=== PATIENT | male | born 1955 | race Caucasian/White ===

== ENCOUNTER → 2018-07-10 | Outpatient (CLI) | payer OTHER ==
[~2018-07-10] MED LIST: ACETAMINOPHEN325 M1 PO; ADULT LOW DOSE81 MG PO; BENIFIBER PO; CALCIUM OYSTER500 MG PO; COUMADIN 5 MG TA5 M1 PO; Docusate Sodium PO; FERREX PO; FISH OIL 1,0001 EAC5 PO; FLONASE INH; GLYCOLAX POWDER17 G1 PO; HYDROCODON-ACE1 EAC7 PO; LIPITOR40 MG PO; LISINOPRIL 20 MG PO; LOPRESSOR25 PO; MULTIVITAMINS PO; UNICOMPLEX M TA1 TA1 PO; VITAMIN E400 UNIT PO; VITCB500GO PO; [UNRECOGNIZED DRUG - OTHER]; [UNRECOGNIZED DRUG - OTHER] PO
[2018-07-10 08:21] LABS: ALBUMIN 4.3 g/dL (3.4-5.0); ANION GAP 10 mmol/L (7-16); BUN 16 mg/dL (7-18); CALCIUM 8.9 mg/dL (8.5-10.1); CHLORIDE 101 mmol/L (98-107); CHOLESTEROL 188 mg/dL (<200); CO2 27 mmol/L (21-32); GLUCOSE 134 mg/dL (74-106); HDL CHOLESTEROL 46 mg/dL (>40); LDL CHOLESTEROL 103 mg/dL (<100); POTASSIUM 4.3 mmol/L (3.5-5.1); SGOT 26 U/L (15-37); SGPT 45 U/L (30-65); SODIUM 138 mmol/L (136-145); TC:HDL 4.1 Ratio (Not establshd); TOTAL BILIRUBIN 0.6 mg/dL (<0.1-1.0); TOTAL PROTEIN 7.5 g/dL (6.4-8.2); TRIGLYCERIDE 196 mg/dL (<150); VLDL 39 mg/dL (<40)
[2018-07-10 11:07] LABS: PSA 0.7 ng/mL (0.0-4.0)
[2018-07-10 23:06] LABS: GLYCOHEMOGLOBIN (HGB A1C) 6.3 % (4.8-5.6)
== END ==
LOC: NUC 07:13 → MRI 15:36 → NUC 15:39
DX: M19.071 Primary osteoarthritis, right ankle and foot (principal); M62.571 Muscle wasting and atrophy, not elsewhere classified, right ankle and foot; I10 Essential (primary) hypertension; L03.115 Cellulitis of right lower limb; M65.871 Other synovitis and tenosynovitis, right ankle and foot; M25.774 Osteophyte, right foot; L97.519 Non-pressure chronic ulcer of other part of right foot with unspecified severity; R60.0 Localized edema; R03.0 Elevated blood-pressure reading, without diagnosis of hypertension; E78.5 Hyperlipidemia, unspecified; E66.09 Other obesity due to excess calories; I73.9 Peripheral vascular disease, unspecified; Z95.2 Presence of prosthetic heart valve; Z82.49 Family history of ischemic heart disease and other diseases of the circulatory system; Z68.33 Body mass index [BMI] 33.0-33.9, adult

== ENCOUNTER 2019-08-30 11:36 | Inpatient (IN) | payer OTHER ==
[~2019-08-30] VITALS: Ht 182.9 cm; Wt 113.4 kg
--- NOTE | ~2019-08-30 | HC ---
[facility] [place] [address] CONSULTATION Name: LETITIA FERRO Room #: 404-P [facility] IN M.R.#: [id number] Admission: 08/30/19 Attend Phys: Navneet Mascorro MD Discharge: Date of : 55 Report #: [id number] THIS REPORT FOR: cc: Pee Alexandre MD, Kirk D. MD [facility] MD ~ CC: Pee Mascorro DATE OF SERVICE: 08/31/2019 INFECTIOUS DISEASE CONSULTATION ATTENDING PHYSICIAN: Navneet Mascorro MD REASON FOR CONSULTATION: Nonhealing right diabetic foot ulcer, infected right fourth toe. HISTORY OF PRESENT ILLNESS: A 64-year-old white man, patient of Dr. Pee Alexandre is admitted through the Emergency Room with a history of bleeding and infection, right fourth toe secondary to self-induced injury with toenail trimming and applying of ____ type substance. The patient was previously evaluated by Dr. Arya Bowie with a chronic nonhealing ulcer on the plantar surface of the medial right mid foot area. He was advised by a stove fitter that the problem can be fixed with surgery, which I doubt very much that Charcot joints are cure or held by any type of surgery. I discussed nonweightbearing issues. PAST MEDICAL HISTORY: Bicuspid aortic valve, status post mechanical aortic valve replacement, on anticoagulation with warfarin, being followed by Dr. Vazquez. Peripheral neuropathy. Diet-controlled diabetes mellitus. Tonsillectomy. Bilateral cataract surgery. DRUG ALLERGIES: None listed. MEDICATIONS: The patient on treatment with single dose of vancomycin and subsequently vancomycin 1 gram IV daily as well as cefepime a gram IV 2 times daily. I discontinued both medications. We put the patient on Zosyn 3.375 grams IV every 8 hours and Zyvox 600 mg p.o. b.i.d. The patient also on treatment with olmesartan medoxomil, amlodipine besylate, multivitamin with iron, aspirin 81 mg, atorvastatin, warfarin, insulin lispro per sliding scale, p.r.n. acetaminophen, p.r.n. glucose, p.r.n. glucagon. The patient has received some heparin bolus as well. SOCIAL HISTORY: See H and P, old records. [address] [address] CONSULTATION Name: LETITIA FERRO Room #: 404-P [facility] IN M.R.#: [id number] Admission: 08/30/19 Attend Phys: Navneet Mascorro MD Discharge: Date of : 55 Report #: [id number] FAMILY HISTORY: See H and P, old records. REVIEW OF SYSTEMS: Not much feeling in lower extremities. Chronic ulceration, medial aspect mid right foot plantar surface from Charcot joint. PHYSICAL EXAMINATION: GENERAL: Well developed, not toxic looking man, in no distress, afebrile. VITAL SIGNS: Temperature 98.6, pulse 58, respirations 18, BP 159/60, height 6 feet, weight 250 pounds. HEENT: Status post cataract surgery. MOUTH: Good oral hygiene, dentition. NECK: Supple. No thyromegaly. LUNGS: Clear to auscultation. HEART: Morrow prosthetic valvular sounds. Heart is S1, S2. No gallop. ABDOMEN: Obese, soft. No masses or megaly. EXTREMITIES: Reveal decreased sensation in legs. Right foot with typical changes of Charcot joints and a chronic discolored area on the medial aspect of the plantar surface of the right foot as well as bleeding from the right fourth toes and recent history of trauma with toenail trimming. LABORATORY DATA: Sodium 140, potassium 4.2, BUN 13, creatinine 1.1, glucose on admission 149, subsequently 140. Liver enzymes normal. Protime 16.7 seconds, INR 1.6. WBC on admission 14,400, repeated 8800, hemoglobin 12.2 g/dL, platelets 252,000. ESR 56 mm per hour. Vancomycin trough pending. Obviously, we will stop and discontinue that. MICROBIOLOGY DATA: Blood cultures negative. RADIOLOGY EVALUATION: An MRI of the foot in the year 2019, no evidence of osteomyelitis, abscess, cellulitis, medial aspect of the right mid foot. Hindfoot and mid foot arthrosis and atrophy of intrinsic musculature compatible with so called peripheral neuropathy. X-ray of the foot revealed no bone destruction that is obvious to us. MRI recommended. Arterial ultrasound, circulation in lower extremities reveal triphasic inflow waveform, preserved down through popliteal arteries below knee level, technically monophasic waveforms suggesting no significant distal right leg stenosis. There is significant blunted peroneal waveform indicating possibly peripheral vascular disease. ASSESSMENT: 1. Chronic right foot ulceration, plantar medial aspect of right foot and evidence of Charcot joint and recent trimming toenail trauma of right fourth toe with evidence of bleeding. 2. Diabetes mellitus, diet controlled. 3. Aortic root valve replacement with a mechanical valve, on anticoagulation with warfarin. [facility] [address] [place] [address] CONSULTATION Name: LETITIA FERRO Room #: 404-P ADM IN M.R.#: [id number] Admission: 08/30/19 Attend Phys: Navneet Mascorro MD Discharge: Date of : 55 Report #: [id number] SUGGESTIONS: For time being, I would recommend medical treatment with combination of Zyvox 600 mg p.o. b.i.d. and Zosyn 3.375 grams IV every 8 hours. MRI may tell us for sure whether we are dealing with osteomyelitis of the right fourth toe, which I doubt. I discussed issue of nonweightbearing and Charcot's joints. Dr. Mascorro, thank you for requesting my suggestions. By: [id number] Leonard Esteban MD /nt
[2019-08-30 11:37] VITALS: BP 131/49
[2019-08-30 12:39] LABS: BASOPHILS 0.5 % (0.0-2.0); EOSINOPHILS 0.4 % (0.0-3.0); HEMATOCRIT 39.3 % (42.0-52.0); HEMOGLOBIN 13.4 gm/dL (14.0-18.0); LYMPHOCYTES 9.1 % (24.0-44.0); MCH 30.6 pg (26.0-34.0); MCHC 34.2 g/dL (28.0-37.0); MCV 89.4 fL (80.0-100.0); MONOCYTES 6.4 % (1.0-8.0); PLATELET COUNT 271 thou/uL (150-400); POLYS 83.6 % (36.0-66.0); RDW 13.4 % (10.5-14.5); WBC 14.4 thou/uL (4.0-11.0)
[2019-08-30 12:41] LABS: CALCIUM 9.1 mg/dL (8.5-10.1); CREATININE 1.1 mg/dL (0.7-1.3)
[2019-08-30 12:45] LABS: APTT 44.4 Seconds (24.5-32.8); INR 1.7; PROTIME 17.4 Seconds (9.3-11.4)
[2019-08-30 12:47] LABS: ALBUMIN 3.9 g/dL (3.4-5.0); DIRECT BILIRUBIN 0.1 mg/dL (<0.1-0.2); TOTAL BILIRUBIN 0.8 mg/dL (<0.1-1.0); TOTAL PROTEIN 7.9 g/dL (6.4-8.2)
[2019-08-30 13:48] VITALS: BP 147/61
--- NOTE | 2019-08-30 13:49 | NUR ---
SENT HANDOFF REPORT AT THIS TIME
[2019-08-30] MEDS ORDERED: AMLODIPINE BESY10 MG PO (14:56)
[2019-08-30] MEDS ORDERED: IRBESARTAN300 MG PO (14:56)
[2019-08-30 15:24] VITALS: BP 157/71
--- NOTE | 2019-08-30 15:57 | NUR ---
PT ADMITTED RELATED TO RT FOOT CELLULITIS. CM REVIEWED CHART AND SPOKE WITH CARE TEAM. CM MET WITH PT AT BEDSIDE THIS DAY. PT IS A&O X4. CM ROLE INTRODUCED. PT INDICATED HE HAS AN APARTMENT OVER HIS SHOP IN [place] WHERE HE HAS BEEN STAYING. HE INIDCATED THEY HAVE A HOUSE AT [facility] WHERE HIS IS WITH THEIR DOGS. 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 PT INDICATED NO HH OR OP THERAPY HX. PT INDICATED HE HAD BEEN FOLLOWED BY OP WC IN [place] BUT HE ISN'T PLEASED WITH THEM AND WANTS TO FOLLOW UP WITH [facility] [place]ON [place]. PT INDICATED HE PLANS TO RETURN TO HIS APARTMENT [place]ON [place]. CM TO FOLLOW INDICATED WITH DC PLANNING.
--- NOTE | 2019-08-30 16:37 | NUR ---
PT ARRIVED ON THE UNIT FROM ER. PT IS AOX4, VSS, NO C/O PAIN AT THIS TIME. PT TRANSFERRED TO BED FROM WHEELCHAIR. PT RIGHT FOOT 4TH TOE HAS EDEMA/SWELLING. 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 PT HAS NEUROPATHY AND DENIES HAVING PAIN IN THE RIGHT FOOT. PT FOOT IS CURRENTLY ELEVATED ON PILLOW. IV IN LEFT AC IS PATENT WITH IV ANTIBIOTIC THERAPY. PT BS 104. CALL LIGHT/PERSONAL ITEMS IN REACH. WILL CONTINUE TO MONITOR.
[2019-08-30 19:23] VITALS: BP 134/55
--- NOTE | 2019-08-31 04:03 | NUR ---
PATIENT ALERT AND ORIENTED X4. UP ADLIB IN ROOM. STUBBED TOE AND BLISTER BROKEN WITH BLEEDING. DRESSING PLACED. BLOOD SUGAR MONITORED PER ORDER. ABX INFUSED W/O COMPLICATION. THIS NURSE CALLED RT REGARDING CPAP FOR PATIENT AT NIGHT HE SLEEPS WITH ONE AT HOME. RT STATED THAT HE WOULD NEED TO HAVE SOMEONE BRING HIS FROM HOME WE DO NOT SUPPLY THEM ANYMORE. PATIENT SLEPT OFF AND ON DURING THE NIGHT. WOUND CARE HAS NOT YET SEEN PATIENT, CONSULT IS IN. WILL MONITOR.
[2019-08-31 05:59] LABS: ABSOLUTE NEUTROPHILS 5.9 thou/uL (1.4-8.2); BASOPHILS 0.7 % (0.0-2.0); EOSINOPHILS 2.6 % (0.0-3.0); HEMATOCRIT 35.7 % (42.0-52.0); HEMOGLOBIN 12.2 gm/dL (14.0-18.0); LYMPHOCYTES 22.1 % (24.0-44.0); MCH 30.8 pg (26.0-34.0); MCHC 34.3 g/dL (28.0-37.0); MCV 89.8 fL (80.0-100.0); MONOCYTES 7.9 % (1.0-8.0); PLATELET COUNT 252 thou/uL (150-400); POLYS 66.7 % (36.0-66.0); RBC 3.97 mil/uL (4.50-6.00); RDW 13.3 % (10.5-14.5); WBC 8.8 thou/uL (4.0-11.0)
[2019-08-31 06:00] LABS: INR 1.6; PROTIME 16.7 Seconds (9.3-11.4)
[2019-08-31 06:10] LABS: CALCIUM 8.1 mg/dL (8.5-10.1); CREATININE 1.1 mg/dL (0.7-1.3); MAGNESIUM 2.3 mg/dL (1.8-2.4); POTASSIUM 4.2 mmol/L (3.5-5.1)
[2019-08-31 09:30] VITALS: BP 159/60
--- NOTE | 2019-08-31 10:16 | NUR ---
Nutrition: Assessed due to admit reason of R foot cellulitis, w/ mention of R 4th toe wound. PMH: chronic diastolic heart failure, charcot foot, and diet controlled prediabetes per EMR. Pt on a carb controlled, heart healthy diet. Eating very well with no nutrition concerns. Pt obese w/ BMI 33.9 kg/m2 but has been "dieting" for the last 6 weeks and states he is down nearly 20#. Weighs self daily. Recent wt of 269#, now CBW is 250# for a healthy 19# wt Reports recently weighing 269#, now CBW is 250# for a 19# healthy or 7% wt change in < 2 mo. Working on drastically reducing portions, snacking frequently between meals on apples, PB3 snacks w/ nuts. Avoids unnecessary carbs and not eating many breads, pasta, etc. Encouraged ongoing emphasis on colorful fruits and vegetables for vitamin/mineral content and lean protein to support wound. A1c 6.3% 1 yr ago (06/2018) w/ a.m. BG 104 mg/dl. Explained increases in BG could occur related to infection present. Pt has SSI if needed plus on MVI w/ iron. Spent 10-15 mins in diet/wt loss education. Low risk.
--- NOTE | 2019-08-31 16:37 | NUR ---
PT HAD INDICATED THAT HE HOPES TO HAVE FOLLOW UP WOUND CARES THROUGH THE WOUND CLINIC HERE AT THE HOSPITAL. PT HAS ALL RECOMMENDED DME FOR HOME USE. CM TO FOLLOW SHOULD ANY DC NEEDS ARISE.
[2019-08-31 16:43] VITALS: BP 120/59
--- NOTE | 2019-08-31 19:02 | NUR ---
ASSUMED CARE OF PT AT 0700. PT IS AOX4, VSS, NO C/O PAIN. PT HAS NEUROPATHY IN BLE. PT RECEIVED ANTIBIOTIC THERAPY PER IV, RT FOOT ELEVATED. WOUND CARE NURSE PLACE DRESSING ON RIGHT FOOT. DRESSING IS CDI. MRI OF FOOT WAS COMPLETED. PT REFUSED S/S INSULIN IF BS IS ELEVATED. PT REPORTS HE DOESN'T TAKE INSULIN AT HOME. PT CALLS APPROPRIATELY, CALL LIGHT/PERSONAL ITEMS ARE IN REACH. WILL CONTINUE TO MONITOR.
[2019-08-31 19:37] VITALS: BP 130/79
--- NOTE | 2019-09-01 04:21 | NUR ---
PATIENT ALERT AND ORIENTED X4. UP ADLIB IN ROOM. DENIES PAIN. BS MONITORED PER ORDER. IV ABX INFUSED W/O COMPLICATION. FAMILY DELIVERED PATIENTS CPAP FROM HOME AND HE STATED THAT HE WOULD NOT WEAR IT TONIGHT BUT HE WILL TOMORROW NIGHT (09/01/2019). RT HAS PATIENT ON A CONTINUOUS PULSE OX TONIGHT. RESTING QUIETLY. WILL MONITOR.
--- NOTE | 2019-09-01 06:40 | NUR ---
THIS NURSE UNWRAPPED PATIENTS RIGHT FOOT DRESSING FOR DR. ROSS (INFECTIOUS DISEASE) TO OBSERVE. REWRAPPED WITH SHARON. PATIENT TOLERATED WELL.
[2019-09-01 08:21] VITALS: BP 145/70
[2019-09-01 19:15] VITALS: BP 134/49
--- NOTE | 2019-09-01 19:19 | NUR ---
ASSUMED CARE OF PATIENT AT 0715, PATIENT ALERT AND ORIENTED X 4. UP AD RICKEY IN ROOM. PATIENT DENIES PAIN THIS AM. C/O HEADACHE, TYLENOL 650 MG 2 TABLETS GIVEN FOR HEADACHE. PATIENT HAS LEFT AC IV IN PLACE, RECEIVED IV ANTIBIOTIC THIS SHIFT. BLOOD SUGAR MONITORING ORDERED, LAST BS 101. WOUND CARE DONE RIGHT FOOT, TOLERATED W/O DIFFICULTY. WILL CONTINUE TO MONITOR.
[2019-09-02 02:57] LABS: HEMATOCRIT 36.8 % (42.0-52.0); HEMOGLOBIN 12.7 gm/dL (14.0-18.0); MCH 30.5 pg (26.0-34.0); MCHC 34.5 g/dL (28.0-37.0); MCV 88.4 fL (80.0-100.0); RBC 4.16 mil/uL (4.50-6.00); RDW 13.4 % (10.5-14.5); WBC 8.9 thou/uL (4.0-11.0)
[2019-09-02 04:47] VITALS: BP 130/60
--- NOTE | 2019-09-02 07:14 | NUR ---
PATIENT ALERT AND ORIEDNTED X 4. UP ADLIB IN ROOM. COOPERATIVE WITH CARE. BS MONITORED PER ORDER. C/O HEADACHE THIS AM AND WAS GIVEN TYLENOL WITH GOOD RESULTS. DR. ROSS IN TO SEE THIS AM AND PATIENT C/O LOOSE STOOLS WHICH ARE RELATED TO HIS ABX. DRESSING TO RIGHT FOOT DRY AND INTACT. UP AND DOWN DURING THE NIGHT. RESTING AT TIME OF NOTE. WILL MONITOR.
[2019-09-02 07:30] VITALS: BP 141/52
[2019-09-02 17:26] VITALS: BP 136/59
[2019-09-02 19:33] VITALS: BP 140/66
--- NOTE | 2019-09-02 20:02 | NUR ---
ASSUMED CARE OF PATIENT AT 0715, PATIENT ALERT AND ORIENTED X 4, UP AD RICKEY. C/O NAUSEA THIS SHIFT, BUT FELT OK AFTER SAMLL OF EMESIS. STILL C/O LOOSE STOOLS, THIS RN NOTIFIED DR STRONG. NEW ORDERS RECEIVED FOR IMMODIUM, PROBIOTIC, AND NEW ORDER FOR TRAMDAOL 1-2 TABLETS/PRN. C/O HEADACHE THIS SHIFT X 2, THIS AM TYLENOL 2 TABLETS GIVEN, WITH RELIEF AND THIS AFTERNOON TRAMADOL 2 TABLETS GIVEN, WITH GOOD RELIEF. PAIENT C/O SLIGHT NAUSEA AT DINNER TIME, BUT STATES HE HAD SMALL AMOUNT OF EMESIS AND ELT BETTER. LEFT IV IN PLACE, RECEIVED 1 IV ANTIBIOTIC THIS SHIFT. WILL CONTINUE TO MONITOR.
[2019-09-03 04:43] VITALS: BP 117/51
--- NOTE | 2019-09-03 05:10 | NUR ---
PATIENT ALERT AND ORIENTED X4. UP ADLIB IN ROOM. NAUSEA AND VOMITING ON THIS SHIFT. NAUSEA DURING THE DAY. NEW ORDER RECEIVED FROM MARVIN ZALDIVAR FOR ZOFRAN IVP WHICH HELPED, NO FURTHER EMESIS AT THIS TIME. ABLE TO SLEEP AFTER ZOFRAN. BS MONITORED PER ORDER. THIS NURSE GAVE WOUND CARE TO RIGHT FOOT PER ORDER AND PATIENT TOLERATED WELL. WEARING CPAP DURING THE NIGHT. DENIES PAIN. RESTING QUIETLY. WILL MONITOR.
--- NOTE | 2019-09-03 15:46 | NUR ---
CARE TEAM INDICATED THAT PT IS PROGRESSING WELL TOWARD GOAL OF DISHCARGE. PT AND OT SAW PT AND INDICATED THAT PT WOULD BE SAFE TO DC HOME ONCE MEDICALLY STABLE. AWAITING IV RECS AND WOUND CARE. CM TO FOLLOW INDICATED WITH DC PLANNING.
--- NOTE | 2019-09-03 15:51 | HC ---
[facility] [place] [address] CONSULTATION Name: KASIELETITIA ALEJANDRO Jade Room #: 404-P ADM IN M.R.#: [id number] Admission: 08/30/19 Attend Phys: Navnete Mascorro MD Discharge: Date of : 55 Report #: [id number] THIS REPORT FOR: cc: Pee Alexandre MD, Kirk D. MD Althoff, Jeffrey R. MD ~ CC: Pee Mascorro DATE OF SERVICE: 08/31/2019 CHIEF COMPLAINT: Ulcerations to the right mid foot and right fourth toe. HISTORY OF PRESENT ILLNESS: This is a 64-year-old male patient with a history of diabetes mellitus and a long history of Charcot deformity of the right foot. He was admitted to the hospital with increasing tenderness, swelling and redness to the right foot. He noted about 2-3 weeks ago was clipping his toenails and accidentally opened up an area on his right fourth toe. It has become increasingly swollen with drainage. He has been followed at [facility], but has been considering seeking additional wound care at another facility. He has been admitted to the hospital for further evaluation and treatment. I have been asked to see her with regard to wound care. He denies any significant pain at this time. He does have Charcot type deformity in his history as well as chronic ulceration on the plantar aspect of the right foot. PAST MEDICAL HISTORY: Specifically is significant for severe aortic stenosis, status post aortic valve replacement, hypertension, hyperlipidemia, diet-controlled prediabetes, morbid obesity, hypertension. MEDICATIONS: Docusate sodium, Ferrex, lisinopril, metoprolol, Coumadin, atorvastatin, aspirin, Flonase. SOCIAL HISTORY: Negative for alcohol or tobacco use. ALLERGIES: None. FAMILY HISTORY: Noncontributory. REVIEW OF SYSTEMS: CONSTITUTIONAL: The patient denies fever, chills, or weight loss. NEUROLOGICAL: The patient denies focal weakness, numbness or tingling. EYES: The patient denies visual changes, redness, or drainage. ENT: The patient denies earache, nasal drainage or sore throat. CARDIOVASCULAR: The patient denies chest pain, palpitations or diaphoresis. PULMONARY: The patient denies cough or shortness of breath. GASTROINTESTINAL: The patient denies nausea, vomiting, diarrhea, or abdominal [address] [address] CONSULTATION Name: KASIELETITIA Room #: 404-P [facility] IN .R.#: [id number] Admission: 08/30/19 Attend Phys: Navneet Mascorro MD Discharge: Date of : 55 Report #: [id number] pain. ORTHOPEDIC: The patient complains of pain, swelling, drainage and persistent ulceration involving the plantar right foot as well as more recently the right fourth toe. Other systems in a 14-point review of systems are negative. PHYSICAL EXAMINATION: VITAL SIGNS: At this time include temperature 37.0, pulse 58, respiratory rate 18, blood pressure 159/60. GENERAL: This is a well-developed, well-nourished male patient who appears to be in minimal distress. HEENT: Head normocephalic male. Nose and throat are clear. NECK: Supple. ABDOMEN: Soft. Bowel sounds present. EXTREMITIES: Examination of the lower extremities demonstrates palpable distal pulses. He has what appears to be a deformity to the plantar aspect of the right mid foot, likely with early Charcot type changes with significant ulceration and significant periwound callous. There is loose skin on the right fourth toe, which is also swollen. I am able to probe the bone at the distal phalanx. The patient has minimal light touch sensation throughout his foot. NEUROLOGIC: The patient is alert and oriented and appropriate other than the light touch sensation decrement. LABORATORY DATA: White blood cell count 14.4 with hemoglobin 13.4. Sodium 140, potassium 4.2, chloride 105, CO2 of 28, BUN 13, creatinine 1.1, glucose is 104. Albumin is 3.9. Cultures have been obtained from the foot and are pending. Arterial Dopplers demonstrate no significant abnormality on the right side. X-ray evaluation of the right foot shows no definite bone destruction or obvious osteomyelitis. CLINICAL IMPRESSION: 1. Diabetic ulceration to the right fourth toe with possible underlying osteomyelitis based on clinical exam. 2. Charcot type deformity of the right foot with plantar ulceration, chronic. 3. Prediabetes versus diabetes. 4. Peripheral neuropathy likely secondary to diabetes mellitus. RECOMMENDATIONS: At this point in time, the patient will be started on empiric antibiotic therapy. We will recommend silver alginate and then gauze dressings to the fourth toe as well as the plantar aspect of the foot. We will obtain an MRI. It may be worthwhile for him to see a Charcot surgeon at some point in time. We will continue with local care. We will also recommend offloading while here. Additional decision making be forthcoming upon review of additional laboratory studies and diagnostic imaging. [address] [address] CONSULTATION Name: LETITIA FERRO Room #: 404-P ADM IN M.R.#: [id number] Admission: 08/30/19 Attend Phys: Navneet Mascorro MD Discharge: Date of : 55 Report #: [id number] I appreciate being asked to see the patient in consultation. <ELECTRONICALLY SIGNED> By: James Nj MD 09/03/19 1551 [id number] James Nj MD /nt
--- NOTE | 2019-09-03 18:43 | NUR ---
PT IS AOX4, UP AD RICKEY, VSS. PT IS TOLERATING DIET WELL, NO N/V. PT REFUSED 3 UNITS OF INSULIN S/S. PT REPORTS HE DOESN'T TAKE INSULIN AT HOME. DRESSING ON RIGHT FOOT WAS CHANGED AND REMAINS CDI. IV IN LEFT AC IS PATENT, ANTIBIOTIC THERAPY RECEIVED. CALL LIGHT IN REACH WILL CONTINUE TO MONITOR.
[2019-09-03 19:37] VITALS: BP 165/67
[2019-09-03 22:00] VITALS: BP 135/62
--- NOTE | 2019-09-04 05:32 | NUR ---
Assumed pt care at 1900. A/OX4. Up ad magalys w/o problems. Pt's BP elevated at HS 165/67 rechecked and 135/62 no intervention needed. Pt c/o pain to right foot, medicated per EMAR with relief reported. Pt encouraged to elevate extremities d/t swelling and did verbalize understanding. Dressing C/D/I to right foot. Pt resting quietly at this time w/o any distress noted,CPAP on will continue to monitor pt. Call light/personal items within reach.
[2019-09-04 07:30] VITALS: BP 127/51
--- NOTE | 2019-09-04 11:24 | NUR ---
PT IS AOX4, VSS, NO C/O PAIN. PT IS UP TO RECLINER, NO C/O PAIN. DRESSING CHANGED ON RIGHT LOWER EXTREMITY, PT IS TOLERATING DIET WELL. CALL LIGHT IN REACH, IV IN LEFT AC IS PATIENT AND USED FOR ANTIBIOTIC THERAPY. WILL CONTINUE TO MONITOR.
[2019-09-04 19:29] VITALS: BP 143/55
--- NOTE | 2019-09-05 05:15 | NUR ---
Assumed pt care at 1900. Pt is A/OX4, VSS. Up ad magalys w/o problems. Denied pain on assessment. Dressing in place on right foot. Pt encouraged to call for help as needed and doing so. Will continue to monitor pt.
[2019-09-05 06:02] LABS: HEMATOCRIT 38.7 % (42.0-52.0); HEMOGLOBIN 13.2 gm/dL (14.0-18.0); MCH 30.4 pg (26.0-34.0); MCV 89.4 fL (80.0-100.0); RBC 4.33 mil/uL (4.50-6.00); RDW 13.7 % (10.5-14.5); WBC 8.9 thou/uL (4.0-11.0)
[2019-09-05 06:08] LABS: INR 1.3; PROTIME 13.2 Seconds (9.3-11.4)
[2019-09-05 10:00] VITALS: BP 142/59
--- NOTE | 2019-09-05 15:58 | NUR ---
RECEIVED FINAL ORAL ABX RECS FROM ID AND WOUND CARE ORDERS. AWAITING TO SEE IF CARE TEAM WILL RECOMMEND OP FOLLOW UP AT WOUND CLINIC OR HH SERVICES. ANTICIPATE DC HOME TOMORROW. CM TO FOLLOW INDICATED WITH DC PLANNING.
--- NOTE | 2019-09-05 16:08 | NUR ---
ASSUMED PATIENT CARE AT 0700. PATIENT IS AOX4, DENIES PAIN, UP AD RICKEY. THE PLAN IS FOR THE PATIENT TO DISCHARGE TOMORROW AFTER HIS 7 DAYS OF ANTIBIOTIC, PATIENT UNDERSTANDS. PATIENT WAS UP TO SHOWER ON HIS OWN AND WOUND CARE WAS COMPLETED AFTER SHOWER. PATIENT STATES THAT HIS STOOL IS FINALLY FORMED AND NO ABDOMINAL PAIN. PATIENT WILL CALL FOR HELP NEEDED BUT GETS AROUND GREAT ON HIS OWN.
[2019-09-05 17:10] VITALS: BP 154/55
[2019-09-05 19:41] VITALS: BP 142/63
--- NOTE | 2019-09-06 04:30 | NUR ---
Assumed pt care at 1900. Pt's A/OX4. VSS.Up ad magalys w/o problems voiced. Denies pain on assessment. Drsg C/D/I on right foot. IV patent on LAC getting abt's w/o difficulties. Pt encouraged to call for help as needed. Resting w/o distress noted, CPAP in place,will continue to monitor pt.
[2019-09-06 07:17] VITALS: BP 154/62
[2019-09-06 13:37] LABS: EOSINOPHILS 2.4 % (0.0-3.0); HEMATOCRIT 39.5 % (42.0-52.0); HEMOGLOBIN 13.7 gm/dL (14.0-18.0); MCH 30.9 pg (26.0-34.0); MCHC 34.7 g/dL (28.0-37.0); MONOCYTES 7.8 % (1.0-8.0); PLATELET COUNT 334 thou/uL (150-400); POLYS 69.8 % (36.0-66.0); RBC 4.44 mil/uL (4.50-6.00); RDW 13.4 % (10.5-14.5); WBC 8.7 thou/uL (4.0-11.0)
[2019-09-06 13:53] LABS: INR 1.4; PROTIME 14.2 Seconds (9.3-11.4)
[2019-09-06 14:02] LABS: ALBUMIN 3.7 g/dL (3.4-5.0); CALCIUM 9.2 mg/dL (8.5-10.1); MAGNESIUM 2.3 mg/dL (1.8-2.4); POTASSIUM 4.1 mmol/L (3.5-5.1); TOTAL BILIRUBIN 0.3 mg/dL (<0.1-1.0); TOTAL PROTEIN 7.2 g/dL (6.4-8.2)
[2019-09-06 14:48] VITALS: BP 137/65
[2019-09-06] MEDS ORDERED: ENOXAPARIN120 MG/0.1 SUBQ (14:57)
[2019-09-06] MEDS ORDERED: KEFLEX500 M1 PO (15:00)
--- NOTE | 2019-09-06 15:25 | NUR ---
CARE TEAM INDICATED THAT PT IS MEDICALLY STABLE TO DISCHARGE HOME THIS DAY. PT HAD ALL RECOMMENDED DME. PT TO DO OP FOLLOW UP WITH DR. HUGHES TOMORRO AND TUESDAY TO HAVE INR CHECKED, FOLLOW UP IN OP WOUND CLINIC, AND COLLOW UP WITH DR. GUERRA IN 1 WEEK FOR ID. NO OTHER CM INTERVENTION INDICATED. CASE CLOSED.
--- NOTE | 2019-09-06 18:20 | NUR ---
ASSUMED CARE OF PATIENT AT 0715, PATIENT ALERT AND ORIENTED X 4. UP AD RICKEY. PATIENT DENIES PAIN THIS SHIFT. PATIENT HAS RIGHT FOOT WOUND, DRESSING CHANGED THIS SHIFT. DR CHAKRABORTY HERE TODAY TO SEE THE PATIENT, LATE DISCHARGE ORDER I COMPUTER FOR HOME WITH SELFCARE. THIS RN INSTRUCTED THE PATIENT HOW TO INJECT LOVENOX, PATIENT VERBALIZE UNDERSTANDING. THIS RN WENT OVER ALL DISCHARGE PAPERWORK AND ALL PERSONAL BELONGINGS SENT WITH THE PATIENT. LEFT AC IV IN PLACE, RECEIVED 1 IV ANTIBIOTIC THIS SHIFT. DR GUERRA SAW THE PATIENT, DISCHARGE WITH KELFEX PO ANTIBIOTIC AND F/U VISIT 2 WEEKS.
== END 2019-09-06 17:30 | disposition home or self-care (01) | DRG 603 ==
LOC: ER 11:36 → 4N 13:26 → EROBS 13:26 → 4N 15:16 → ENTRNSPT 09-06 17:25 → 4N 09-06 17:30
PROVIDERS: Internal Medicine; Nurse Practitioner; ADMIT Internal Medicine
DX: L03.115 Cellulitis of right lower limb (principal); A52.16 Charcot's arthropathy (tabetic); I50.32 Chronic diastolic (congestive) heart failure; E11.621 Type 2 diabetes mellitus with foot ulcer; E78.5 Hyperlipidemia, unspecified; E11.622 Type 2 diabetes mellitus with other skin ulcer; E11.42 Type 2 diabetes mellitus with diabetic polyneuropathy; L97.519 Non-pressure chronic ulcer of other part of right foot with unspecified severity; I11.0 Hypertensive heart disease with heart failure; K42.9 Umbilical hernia without obstruction or gangrene; G47.33 Obstructive sleep apnea (adult) (pediatric); I35.0 Nonrheumatic aortic (valve) stenosis; Z82.49 Family history of ischemic heart disease and other diseases of the circulatory system; Z95.2 Presence of prosthetic heart valve; E66.01 Morbid (severe) obesity due to excess calories; Z68.33 Body mass index [BMI] 33.0-33.9, adult; Z98.42 Cataract extraction status, left eye; Z98.41 Cataract extraction status, right eye; Z79.01 Long term (current) use of anticoagulants
CPT/HCPCS: 10091

== ENCOUNTER → 2019-09-26 | Outpatient (CLI) | payer OTHER ==
[~2019-09-26] MED LIST changes: +AMLODIPINE BESY10 MG PO; +ENOXAPARIN120 MG/0.1 SUBQ; +IRBESARTAN300 MG PO; +KEFLEX500 M1 PO
== END ==
LOC: RAD 14:31
DX: L97.512 Non-pressure chronic ulcer of other part of right foot with fat layer exposed (principal)

== ENCOUNTER 2019-11-09 08:15 | Inpatient (IN) | payer OTHER ==
[~2019-11-09] VITALS: Ht 182.9 cm; Wt 113.4 kg
[~2019-11-09 08:15] MED LIST changes: +DOXYCYCLINE 10100 MG PO; +GLUCOSAMINE1000 MG PO; +SUPER THERAVIT1 EACH PO
[2019-11-09 09:01] VITALS: BP 151/54
[2019-11-09 09:15] LABS: INR 1.2; PROTIME 12.8 Seconds (9.3-11.4)
[2019-11-09] MEDS ORDERED: PERCOCET 7.5-31 EAC1 PO (11:14)
[2019-11-09 11:30] VITALS: BP 151/54
--- NOTE | 2019-11-10 09:13 | O ---
[facility] [place] [address] OPERATIVE REPORT Name: LETITIA FERRO Jade Room #: 150-3 [facility] IN .R.#: [id number] Admission: 11/09/19 Attend Phys: Shaggy Adames MD Discharge: 11/09/19 Date of : 55 Report #: [id number] THIS REPORT FOR: cc: Pee Alexandre MD, Kirk D. MD Kneidel, Matthew T. MD ~ CC: Pee Adames DATE OF SERVICE: 11/09/2019 PREOPERATIVE DIAGNOSIS: Right fourth toe osteomyelitis. POSTOPERATIVE DIAGNOSIS: Right fourth toe osteomyelitis. PROCEDURE: Right fourth toe amputation. SURGEON: Shaggy Adames MD SALES COUNSELOR: Zoie Baptiste. ANESTHESIA: General. ESTIMATED BLOOD LOSS: 1 mL. DRAINS: None. COMPLICATIONS: None. DESCRIPTION OF PROCEDURE: The patient was brought to the operating room where he was placed under general anesthesia. Once under adequate general anesthesia, his right lower extremity was prepped and draped in a sterile manner. The extremity was elevated and tourniquet placed to 250 mmHg. A fishmouth type incision was made over the middle phalanx of the fourth toe. Sharp dissection was carried to the bone. The toe was then released through its proximal interphalangeal joint via the collateral ligaments with a 15 blade and then subsequently completely removed. Once removed, the wound was irrigated copiously and closed with 3-0 nylon for the skin. The toe was then dressed with Xeroform, 4 x 4s, and sterile soft compressive dressing was placed. Tourniquet was let down at 10 minutes. Toes were pink and warm with good capillary refill. There were no complications from the procedure. The patient tolerated the procedure well and went to recovery room without incident. <ELECTRONICALLY SIGNED> By: Shaggy Adames MD 11/10/19 0913 [id number] Shaggy Adames MD /nt
== END 2019-11-09 12:25 | disposition home or self-care (01) | DRG 505 ==
LOC: TBA 08:15 → CATH 09:53 → EDSTATUS 10:54 → PRE 10:57 → TBA 12:25 → PRE 12:30
PROVIDERS: ADMIT Orthopaedic Surgery Foot and Ankle Surgery
PROC: 0Y6V0Z0 Detachment at Right 4th Toe, Complete, Open Approach (ICD-10-PCS; principal; 2019-11-09)
DX: M86.171 Other acute osteomyelitis, right ankle and foot (principal); I10 Essential (primary) hypertension; I35.0 Nonrheumatic aortic (valve) stenosis; G62.9 Polyneuropathy, unspecified; L97.519 Non-pressure chronic ulcer of other part of right foot with unspecified severity; I77.1 Stricture of artery; E66.01 Morbid (severe) obesity due to excess calories; K42.9 Umbilical hernia without obstruction or gangrene; Z82.49 Family history of ischemic heart disease and other diseases of the circulatory system; Z79.82 Long term (current) use of aspirin; Z79.891 Long term (current) use of opiate analgesic; Z95.2 Presence of prosthetic heart valve; Z79.899 Other long term (current) drug therapy; Z68.33 Body mass index [BMI] 33.0-33.9, adult; Z90.89 Acquired absence of other organs
CPT/HCPCS: 50010; 50101; 50386; 57091; 57179; 62110; 62900; 70005

== ENCOUNTER → 2020-05-12 | Outpatient (CLI) | payer OTHER, MEDICARE ==
[~2020-05-12] MED LIST changes: +PERCOCET 7.5-31 EAC1 PO
== END ==
LOC: SJCVC 11:09
PROVIDERS: ATTEND Internal Medicine
DX: R94.31 Abnormal electrocardiogram [ECG] [EKG] (principal); I11.0 Hypertensive heart disease with heart failure; I50.32 Chronic diastolic (congestive) heart failure; E78.5 Hyperlipidemia, unspecified; G47.33 Obstructive sleep apnea (adult) (pediatric); I25.10 Atherosclerotic heart disease of native coronary artery without angina pectoris; Z95.4 Presence of other heart-valve replacement; Z72.89 Other problems related to lifestyle; Z79.01 Long term (current) use of anticoagulants; Z79.899 Other long term (current) drug therapy; Z79.82 Long term (current) use of aspirin

== ENCOUNTER 2020-05-24 12:51 | Inpatient (IN) | payer OTHER, MEDICARE ==
[~2020-05-24] VITALS: Ht 182.9 cm; Wt 117.9 kg
--- NOTE | ~2020-05-24 | HC ---
[facility] [place] [address] CONSULTATION Name: LETITIA FERRO Jade Room #: 444-P ADM IN ..#: [id number] Admission: 05/24/20 Attend Phys: Isiah Sarabia MD Discharge: Date of : 55 Report #: [id number] THIS REPORT FOR: cc: SHARRON - Family physician unknown FAM - Family physician unknown Manpreet Sims MD ~ DATE OF SERVICE: 05/25/2020 WOUND CARE CONSULTATION NOTE REASON FOR CONSULTATION: Charcot right foot with cellulitis and diabetic foot ulcer, status post recent surgery by tow truck driver. HISTORY OF PRESENT ILLNESS: The patient is a 65-year-old gentleman with diabetes mellitus type 2 and diabetic neuropathy with Charcot right foot in which he has had several surgeries. He may have a history of osteomyelitis of the right foot. The patient has seen Dr. Nj in the past; however, most recently, he was a patient at [facility] in the W[facility] Care [facility] and also at [facility] saw tow truck driver who approximately 10 days ago performed surgery on the right foot with debridement of a chronic right foot ulcer. Procedure note and pathology results of that procedure are not available. The patient's foot became more red, swollen, and cellulitic. He is admitted to the Emergency Room and is currently on IV antibiotics, vancomycin and ceftriaxone. Of note, the patient is status post aortic valve replacement, prosthetic valve on chronic warfarin. The patient admitted for IV antibiotics and diabetic foot care. He may have had vascular studies of the foot in the past at [facility]. PAST MEDICAL HISTORY: Charcot right foot, diabetes mellitus type 2 with diabetic neuropathy, history of osteomyelitis of the right foot, aortic valve disease, aortic valve replacement. ALLERGIES: None. MEDICATIONS: See chart. COVID negative. PHYSICAL EXAMINATION: GENERAL: Shows a 65-year-old gentleman, mildly obese, alert, pleasant, sitting in a chair. HEENT: Mucous membranes are moist. NECK: Supple. ABDOMEN: Soft. EXTREMITIES: Physical examination shows good intact dorsalis pedis pulses in both feet, right foot has Charcot deformity, strong dorsalis pedis pulse, mild [facility] [address] [place] [address] CONSULTATION Name: LETITIA FERRO Room #: 444-P [facility] IN ..#: [id number] Admission: 05/24/20 Attend Phys: Isiah Sarabia MD Discharge: Date of : 55 Report #: [id number] swelling of the right foot with some redness on the dorsum of the foot. On the medial aspect of the right foot, there is a raised keratinized area approximately 4.5 cm x 2.5 cm. This was partially ulcerated under a layer of callus. IMPRESSION: 1. Diabetes mellitus type 2 with diabetic neuropathy. 2. Chronic right foot diabetic ulcer. 3. History of osteomyelitis of the right foot. 4. Cellulitis of the right foot. PLAN: IV antibiotics. Dr. Nj to decide on building energy consultant of choice, Orthopedics versus Podiatry. MRI of the right foot is ordered for tomorrow. Wound care team will follow. Local care with Vaseline gauze, ABD, Kerlix wrap. Keep foot elevated. Wound care team will follow. By: [id number] Manpreet Sims MD /nt
[2020-05-24 13:03] VITALS: BP 157/61
[2020-05-24 13:55] LABS: ABSOLUTE NEUTROPHILS 12.4 thou/uL (1.4-8.2); BASOPHILS 0.7 % (0.0-2.0); EOSINOPHILS 0.9 % (0.0-3.0); HEMATOCRIT 36.9 % (42.0-52.0); HEMOGLOBIN 12.1 gm/dL (14.0-18.0); LYMPHOCYTES 11.4 % (24.0-44.0); MCH 29.1 pg (26.0-34.0); MCHC 32.8 g/dL (28.0-37.0); MCV 88.7 fL (80.0-100.0); MONOCYTES 8.2 % (1.0-8.0); PLATELET COUNT 300 thou/uL (150-400); POLYS 78.8 % (36.0-66.0); RBC 4.16 mil/uL (4.50-6.00); RDW 14.5 % (10.5-14.5); WBC 15.7 thou/uL (4.0-11.0)
[2020-05-24 14:02] LABS: CALCIUM 8.6 mg/dL (8.5-10.1); CREATININE 1.2 mg/dL (0.7-1.3); POTASSIUM 4.4 mmol/L (3.5-5.1)
[2020-05-24 14:08] LABS: ALBUMIN 3.4 g/dL (3.4-5.0); DIRECT BILIRUBIN 0.1 mg/dL (<0.1-0.2); TOTAL BILIRUBIN 0.6 mg/dL (0.2-1.0); TOTAL PROTEIN 7.6 g/dL (6.4-8.2)
[2020-05-24 15:17] LABS: INR 1.7; PROTIME 17.4 Seconds (9.3-11.4)
[2020-05-24 17:15] VITALS: BP 154/63
[2020-05-25] VITALS (7 sets, daily range): BP systolic 104–151; BP diastolic 40–76
--- NOTE | 2020-05-25 04:15 | NUR ---
PT ARRIVED ON UNIT FROM ED AT 0130. ADMITTED WITH CELLULITIS/WOUND RIGHT FOOT. AMBULATING TO BATHROOM INDEPENDENTLY AND IS TOLERATING WELL. DENIES PAIN. RESTING COMFORTABLY. NO NEEDS VOICED. CALL LIGHT WITHIN REACH. FREQUENT OBSERVATION.
[2020-05-25 08:17] LABS: HEMATOCRIT 35.5 % (42.0-52.0); HEMOGLOBIN 12.4 gm/dL (14.0-18.0); MCH 30.7 pg (26.0-34.0); MCHC 34.9 g/dL (28.0-37.0); MCV 87.9 fL (80.0-100.0); RBC 4.04 mil/uL (4.50-6.00); RDW 14.2 % (10.5-14.5); WBC 13.3 thou/uL (4.0-11.0)
[2020-05-25 08:32] LABS: CALCIUM 8.9 mg/dL (8.5-10.1); CREATININE 1.1 mg/dL (0.7-1.3); POTASSIUM 4.1 mmol/L (3.5-5.1)
[2020-05-25 08:54] LABS: INR 1.8; PROTIME 18.3 Seconds (9.3-11.4)
--- NOTE | 2020-05-25 10:29 | NUR ---
ASSUMED CARE AT 0700. PT IS A&O X4. PT HAS A COUGH. SCD HOSE ARE IN PLACE. PT HAS A SWOLLEN RIGHT LEG AND CELLITITUS ON RIGHT FOOT AND REDNESS. DRESING IS INTACT AND COVERED. VSS. PT HAS A MECHANICAL AORTIC VALUE. PT HAS SOFT ABD. FALL PRECAUTION. CALL LIGHT WITHIN REACH. PT DENIES ANY PAIN, V,SOA, N. IV ON LEFT AC IS INTACT AND SHOWS NO SIGNS OF REDNESS OR SWELLING .WILL CONTINUE TO MONITOR. VANCOMYCIN WAS CHANGED BY PHARMACY DUE TO LATE TIME OF VANCOYMCIN. VANCOYMIN WILL BE GIVEN AT 11 AM INSTEAD OF 8 AM DUE TO THE CHANGE TIME.
[2020-05-26 03:49] LABS: INR 1.8; PROTIME 18.7 Seconds (9.3-11.4)
--- NOTE | 2020-05-26 06:49 | NUR ---
ASSUMED PT CARE AT SHIFT CHANGE. PT IS A&OX4. VSS. PT CAN VOICE HIS NEEDS AND CALLS OUT APPROPRIATELY. PT HAS SCDS IN PLACE. PT DENIES PAIN. PT HAS A SWOLLEN RIGHT LEG.PT STATES THAT HE IS USUALLY ON A HEART HEALTHY OR A CARB CONTROL. PT IS ABLE TO MAKE NEEDS KNOWN. HOURLY ROUNDING. MAGUI PEREZ TO MONITOR.
--- NOTE | 2020-05-26 07:27 | NUR ---
THIS NURSE AGREES WITH ASSESSMENT AND NOTES FROM CONTRACT NEGOTIATION MANAGER ON THIS PATIENT.
[2020-05-26] MEDS ORDERED: ASA81BEC PO ×2 (08:44)
--- NOTE | 2020-05-26 09:16 | NUR ---
ORDERS FOR EVAL AND TREAT. SPOKE WITH Pt WHO STATES HE IS HAVING NO DIFFICULTY WITH HIS MOBILITY AND HAS BEEN WALKING TO THE BATHROOM WITHOUT ASSIST. Pt DECLINING FORMAL P.T. EVAL AT THIS TIME. Pt APPEARS SAFE FOR HOME WHEN MEDICALLY CLEAR. WILL BE AVAILABLE IF Pt HAS ANY PROCEDURES THAT MIGHT IMPAIR HIS MOBILITY
--- NOTE | 2020-05-26 10:16 | NUR ---
PT CARE ASSUMED AT 0700. A&Ox4. PT GOING TO MRI. SLEEP APNEA WITH CPAP IN ROOM. FLU VACCINE GIVEN. VITALS STABLE. INR 18.7 UP AT [place] AND SITTING IN THE RECLINER. IV PATENT WITH NO REDNESS OR EDEMA, SALINE LOCKED. IV ANTIBIOTICS INFUSING. CALL LIGHT IN REACH. WILL CONTINUE TO MONITOR.
--- NOTE | 2020-05-26 12:33 | NUR ---
Assess due to notification of pt with diabetic foot wound with osteomyelitis. Visit with pt, reports has lost about 15-20 lb intentionally over past 6 mo being more conscious of what he eats. Pt and with several dietary questions which were answered. Last A1C verbalized as 6.1. Current diet order is regular-will add carb control. Appetite otherwise good and pt eats high protein foods. Low nutrition risk
--- NOTE | 2020-05-26 14:19 | NUR ---
ASSESSMENT: CM REVIEWED CHART AND SPOKE WITH PT. PT IS ALERT AND ORIENTED X4. PT WAS ADMITTED DUE TO RIGHT FOOT CELLULITIS AND POSSIBLE OSTEO. PT IS TO GET AN MRI. PT REPORTS THAT HE CURRENTLY LIVES IN AN APT HERE IN [place], [place] THAT IS ABOVE HIS SHOP. HE REPORTS HE HAS A STAIR GLIDE THAT CAN TAKE HIM UP THERE AND REPORTS USING A KNEE SCOOTER FOR AMBULATION. PT REPORTS HE HAS A GRAB BAR AND A SHOWER CHAIR. PT REPORTS HIS MAIN HOME IS AT THE [facility] AND HIS IS THERE. CM DISCUSSED ROL. PT REPORTS HE PLANS ON RETURNING TO HIS APT AT DISCHARGE AND STATES HE PLANS ON CONTINUING THINGS THEY WAY THEY WERE PRIOR TO ADMISSION. CM WILL COTNINUE TO FOLLOW TO ASSIST NEEDED.
[2020-05-27 06:11] LABS: INR 1.8; PROTIME 18.1 Seconds (9.3-11.4)
--- NOTE | 2020-05-27 07:59 | NUR ---
Assumed pt care at 1900. A/OX4,VSS. Pt is up ad magalys w/o any problems. Calls approp for help. IV on LUE infiltrated,new IV inserted on RFA by house sup after 4 attempts by staff. Drsg C/D/I on Right foot. Denies pain on assessment. Rested well at [facility],CPAP in place.
[2020-05-27 08:05] VITALS: BP 144/45
--- NOTE | 2020-05-27 11:25 | NUR ---
ASSUMED PT CARE THIS AM. PT VSS, A&OX4. PT AMBULATES WELL ON OWN. PT COMPLAINING OF NO PAIN. WOUND DRESSING TO BE CHANGED TODAY. IV PATENT, MEDS INFUSING. PT CALLS APPROPRIATELY WHEN NEEDED.
--- NOTE | 2020-05-27 15:04 | NUR ---
PT CONTINUES ON TWO IV ABX VANC AND CEFTRIAXONE. ORTHO SAW PT AND ANTICIPATE SURGICAL I&D TOMORROW. CM TO FOLLOW INDICATED WITH DC PLANNING.
[2020-05-27 20:09] VITALS: BP 141/47
--- NOTE | 2020-05-28 03:28 | NUR ---
Assumed pt care at 1900. A/OX4,VSS. Denies pain on assessment. Up ad magalys in room w/o problems. Dressing C/D/I to Right foot wound.Pt has been NPO for I&D today. Resting quietly at this time CPAP in place, no distress noted,will continue to monitor pt.
[2020-05-28 06:38] VITALS: BP 138/51
[2020-05-28 07:21] LABS: INR 1.5
[2020-05-28 11:27] VITALS: BP 121/51
[2020-05-28 16:50] VITALS: BP 149/58
--- NOTE | 2020-05-28 17:46 | NUR ---
Assumed pt care at 7am.Pt has gone to surgery befor the beginning of shift at 6am per night rn report.Pt returned to floor from surgery at 10am in stable condition.Post op vss.Late breakfast given and well tolerated.Oral bp held due to low reading.Pt in and out of bed with assist most ot the time till he got his knee bike from home this evening.No verbal c/o.Will continue to monitor.
[2020-05-28 19:56] VITALS: BP 147/68
[2020-05-29 05:10] VITALS: BP 142/60
[2020-05-29 06:50] LABS: INR 1.4; PROTIME 14.4 Seconds (9.3-11.4)
[2020-05-29 07:15] VITALS: BP 146/62
--- NOTE | 2020-05-29 07:57 | NUR ---
VSS-AFEBRILE. RIGHT FOOT DRAINED LARGE AMOUNTS OF SANGUINEOUS DRAINAGE THROUGH NIGHT. APPLIED PRESSURE DRESSING, AND CURRENT DRESSING IS DRY AND INTACT. NO C/O PAIN. CALLS APPROPRIATELY FOR ANY NEEDED ASSISTANCE.
--- NOTE | 2020-05-29 10:57 | NUR ---
PT HAD SURGICAL I&D YESTERDAY. CM SPOKE WITH PT THIS AM AND HE IS AWARE THAT WE ARE AWAITING FINAL CULTURES REGARDING ABX TREATMENT BUT THAT HE IS ON TWO IV ABX CURRENTLY. CM EXPLAINED HOME INFUSION AND HH SERVICES. PT IS RECEPTIVE TO BOTH IF NEEDED UPON DC. HE EXPRESSED NO PREFERENCE FOR PROVIDERS. CM SENT REFERRALS TO [facility] AND [facility] FOR REVIEW FOR POSSIBLE SERVICES. CM AWAITING RESPONSE. CM TO FOLLOW INDICATED WITH DC PLANNING.
--- NOTE | 2020-05-29 14:48 | NUR ---
Assumed pt care at 7am.Pt up in chair with feet elevated.Assessment completed.vss.Pt reported rt foot bleeding during the night but now dry and intact.Pt encouraged not to put wt on rt foot as ordered.Meds given and well tolerated.Later this afternoon,around 1400,bleeding noted on rt foot and was redress with pressure drsg. Dr Nj notified.Will be waiting for his return call.Will continue to monitor.
--- NOTE | 2020-05-29 15:13 | O ---
[address] [address] OPERATIVE REPORT Name: LETITIA FERRO Room #: 460-P ADM IN M.R.#: [id number] Admission: 05/24/20 Attend Phys: Isiah Sarabia MD Discharge: Date of : 55 Report #: [id number] THIS REPORT FOR: cc: FAM - Family physician unknown FAM - Family physician unknown Pablo Hernández MD ~ DATE OF SERVICE: 05/28/2020 SERVICE: Orthopedics. FACILITY: [facility]. SURGEON: Pablo Hernández MD ELECTROSTATIC POWDER COATING TECHNICIAN: Paulette Nice NP PREOPERATIVE DIAGNOSES: 1. Charcot arthropathy, right foot. 2. Diabetic neuropathy, right foot. 3. Diabetic wound, right foot. 4. Nonhealing right midfoot wound. 5. Right midfoot abscess. POSTOPERATIVE DIAGNOSES: 1. Charcot arthropathy, right foot. 2. Diabetic neuropathy, right foot. 3. Diabetic wound, right foot. 4. Nonhealing right midfoot wound. 5. Right midfoot abscess. PROCEDURE: Incision and drainage down to the fascial layer, right midfoot abscess. COMPLICATIONS: None. DRAINS: None. SPECIMENS: 1. Fluid culture for aerobic, anaerobic, fungal and AFB. 2. Tissue culture for the same. 3. Tissue for permanent pathology. FINDINGS: Small fluid pocket with serous appearing fluid. No taylor purulence, no signs of osteomyelitis or significant tissue necrosis. [address] [address] OPERATIVE REPORT Name: LETITIA FERRO Room #: 460-P [facility] IN [facility].#: [id number] Admission: 05/24/20 Attend Phys: Isiah Sarabia MD Discharge: Date of : 55 Report #: [id number] HISTORY: The patient is a gentleman with an approximately 2 year history of a chronic nonhealing wound. He presented to the Emergency Room with signs of infection and worsening pain and malaise. He had an MRI, which showed an abscess in the right midfoot and Orthopedics was consulted for surgical treatment, which was performed in collaboration with recommendations from the wound care team who has been seen for quite some time. Risks, benefits, alternatives and indications of surgery were discussed with him in detail. Risks include need for further surgery and anesthetic complications up to and including . Despite the risks, he wished to proceed. PROCEDURE IN DETAIL: After right lower extremity was correctly identified as the operative extremity, the patient was taken to the operating room where general anesthesia was induced without complication. He was padded appropriately. Tourniquet was applied to the right leg. The right leg was then prepped and draped in a standard sterile fashion. The leg was held in an elevated position and then the tourniquet was inflated utilizing exsanguination via elevation. No Esmarch was used. The wound on the medial side of the foot measured 5 cm x 3 cm. The wound was incised in line with the pathology based on the preoperative imaging and the dissection was taken down to the fluid pockets, which were cultured and then some tissue within the central portion of the wound was excised sharply and sent for pathology as well. The callus was excised sharply, as was the boggy hypertrophic tissue along the wound. This was excised down to the fascial layer. There was no purulence or osteomyelitis. After adequate debridement had been performed and portion had been biopsied for permanent pathology, the wound was copiously irrigated. We again explored to confirm there were no further fluid pockets and then the wound was packed with dry gauze after the tourniquet was let down and hemostasis was achieved, a well-padded wrap was then applied. The patient was awakened from anesthesia and taken to recovery room in stable condition. No complications. All counts were correct. <ELECTRONICALLY SIGNED> By: Pablo Hernández MD 05/29/20 1513 [id number] Pablo Hernández MD /nt
[2020-05-29 20:10] VITALS: BP 142/82
[2020-05-30 09:29] VITALS: BP 146/49
--- NOTE | 2020-05-30 12:29 | NUR ---
VAT CONSULTED TO PLACE PICC LINE. RIGHT UPPER BASILIC, 4FR SL PICC INSERTED, DOCUMENTED, PER POLICY. PT TOLERATED WELL. CXR ORDERED TO CONFIRM TIP LOCATION.
--- NOTE | 2020-05-30 12:38 | NUR ---
Received awake on bed. Due medications given as prescribed, able to swallow meds w/o difficulty. On room air. Vital signs stable. On MS, not on telemetry; no complains and signs of chest pain, crushing sensation and heaviness. On carb controlled diet- tolerating well; no nausea, no vomiting and no abdominal pain noted. Falls bundle in place, Continent of bowel and bladder. With SL at R hand- intact and flushing well; on IV antibiotics. With R foot wound - non healing; dressing C/D/I; reminded pt re: non weight bearing status. Lab called, citical vancomycin level: 24- Dr Sarabia informed; to hold AM dose- Dr Bowie informed during his AM rounds as well. Pt for PICC line insertion- consent signed; CM informed; pt updated as well. To continue monitoring patient.
--- NOTE | 2020-05-30 13:39 | NUR ---
RADIOLOGY REPORT THAT PICC TIP OVERLIES LOW SVC. RELEASED FOR USE, PER HOSPITAL PROTOCOL.
--- NOTE | 2020-05-30 13:43 | NUR ---
ID RECOMMENDED DAPTO UPON DC. HOME INFUSION WITH DAPTO WOULD COST $454.35 PER DAY. CM NOTIFIED PT AND INDICATED THAT OP INFUSION MIGHT BE COVERED BY INSURANCE. CM SENT REFERRAL TO OP INFUSION AND THEY APPROVED FOR SERVICES AND INDICATED NO COPAY. CM NOTIFIED PT. HE INDICATED THAT HE WANTS TO OP INFUSION HERE AND DO OP WC AT THE CLINIC WELL. HIS IS ABLE TO PROVIDE TRANSPORT. PT IS AWARE TO GO TO THE ED SAT, SUN, AND MON AT 8:00 AND HAS BEEN GIVEN A FORM WITH THE NUMBER TO CALL AHEAD TO. PT HAS ALL NEEDED DME. CARE TEAM INDICATED THAT PT IS NOT TO DC TODAY DUE TO SOME BLEEDING BUT THAT HE MAY BE MEDICALLY STABLE TO DC OVER THE WEEKEND PT IS AWARE AND AGREEABLE. [place] [phone].
[2020-05-30 15:57] VITALS: BP 151/54
--- NOTE | 2020-05-30 16:29 | NUR ---
RADIOLOGY REPORTS THAT PICC TIP OVERLIES LOWER SVC. RELEASED FOR USE, PER HOSPITAL POLICY.
[2020-05-30 20:00] VITALS: BP 140/92
[2020-05-31 08:16] VITALS: BP 156/53
[2020-05-31 08:45] VITALS: BP 135/72
[2020-05-31 09:59] LABS: ABSOLUTE NEUTROPHILS 7.5 thou/uL (1.4-8.2); BASOPHILS 0.6 % (0.0-2.0); EOSINOPHILS 2.9 % (0.0-3.0); HEMATOCRIT 31.7 % (42.0-52.0); HEMOGLOBIN 10.7 gm/dL (14.0-18.0); LYMPHOCYTES 19.8 % (24.0-44.0); MCH 29.7 pg (26.0-34.0); MCHC 33.9 g/dL (28.0-37.0); MCV 87.7 fL (80.0-100.0); MONOCYTES 7.8 % (1.0-8.0); PLATELET COUNT 359 thou/uL (150-400); POLYS 68.9 % (36.0-66.0); RBC 3.62 mil/uL (4.50-6.00); RDW 14.5 % (10.5-14.5); WBC 10.9 thou/uL (4.0-11.0)
[2020-05-31 10:52] LABS: ALBUMIN 3.3 g/dL (3.4-5.0); CALCIUM 9.3 mg/dL (8.5-10.1); MAGNESIUM 2.2 mg/dL (1.8-2.4); TOTAL BILIRUBIN 0.4 mg/dL (0.2-1.0); TOTAL PROTEIN 6.8 g/dL (6.4-8.2)
--- NOTE | 2020-05-31 12:49 | NUR ---
Received awake on bed. Due medications given as prescribed, able to swallow meds w/o difficulty. On room air. Vital signs stable. On carb controlled diet- tolerating well; no nausea, no vomiting and no abdominal pain noted. On blood sugar monitoring, taken and recorded accordingly. With 1 lumen PICC line at R upper arm; dressing C/D/I; on IV antibiotics. With wound at R foot- dressing C/D/I- monitored for bleeding, none noted. Up ad magalys, using scooter to off load and non weight bearing for R foot- compliant. On MS, not on telemetry; no complains and signs of chest pain, crushing sensation and heavienss. Followed up with Dr Muñoz re: discharge orders, informed her that Dr Sarabia cancelled yesterday's discharge due to bleeding at R foot the night before, and followed up re: IV antibiotics as well- pharmacy unable to give Daptomycin dose earlier than 7pm tonight- as per Dr Muñoz, she will call pharmacy re: options for antibiotic infusion today. To continue monitoring patient.
--- NOTE | 2020-06-03 09:39 | PATH ---
[facility] [address] [place] [address] PATHOLOGY RPT PROCEDURE Name: JEROME RAMSEY Room #: 460-P [facility] IN M.R.#: [id number] Admission: 05/24/20 Date of : 55 Discharge: 05/31/20 Report #: [id number] Path Case #: [id number] [facility] Accession Number: [id number] . 01 Material submitted: . foot - BIOPSY RT FOOT WOUND MEDIAL MARGIN. Modifiers: right, medial . 01 Clinical history: . INFECTED WOUND ON MEDIAL SIDE OF FOOT . 02 Diagnosis: Skin, right foot wound medial margin, biopsy: - Skin and subcutaneous tissue with marked acute inflammation and hyperkeratosis. - Pseudoepitheliomatous changes. - Negative for dysplasia or malignancy. (IUV:record filing clerk; 05/30/2020) MBR 05/30/2020 1414 Local . 02 Electronically signed: . Arina Neves MD, Pathologist NPI- [id number] . 01 Gross description: . The specimen is received in formalin, labeled "Jerome Ramsey, right foot wound medial margin" and consists of 2 segments of yellow-wallis to brown irregular skin measuring 3.5 x 1.1 x 0.5 cm and 4.8 x 1.4 x 0.8 cm. Motorboat Mechanic Inboard/Outboard sections are submitted in A1. (SDY; 05/29/2020) SYU/SYU 05/29/2020 1448 Local . 02 Pathologist provided ICD-10: L98.9, L85.9 . 02 CPT . 177034 Specimen Comment: A courtesy copy of this report has been sent to [phone] Specimen Comment: [id number] Specimen Comment: Report sent to / DR BEE Specimen Comment: A duplicate report has been generated due to demographic updates. Performed at: [address] [id number] MD Goyo Augustin MD Phone: [phone] Performed at: [address] [place] [address] PATHOLOGY RPT PROCEDURE Name: JEROME RAMSEY Room #: 460-P [facility] IN M.R.#: [id number] Admission: 05/24/20 Date of : 55 Discharge: 05/31/20 Report #: [id number] Path Case #: [id number] [address] [facility], [place], [place] [id number] MD Arina Neves MD Phone: [phone]
== END 2020-05-31 17:41 | disposition home health service (06) | DRG 622 ==
LOC: ER 12:51 → 4S 15:21 → EROBS 15:21 → 4S 05-25 01:26 → 4W 05-26 19:12
PROVIDERS: Internal Medicine; Nurse Practitioner; ADMIT Hospitalist; ATTEND Hospitalist
DX: E11.69 Type 2 diabetes mellitus with other specified complication (principal); R65.11 Systemic inflammatory response syndrome (SIRS) of non-infectious origin with acute organ dysfunction; L02.611 Cutaneous abscess of right foot; L03.115 Cellulitis of right lower limb; M86.8X7 Other osteomyelitis, ankle and foot; I50.32 Chronic diastolic (congestive) heart failure; E78.00 Pure hypercholesterolemia, unspecified; E66.9 Obesity, unspecified; I11.0 Hypertensive heart disease with heart failure; E78.5 Hyperlipidemia, unspecified; G47.33 Obstructive sleep apnea (adult) (pediatric); E11.621 Type 2 diabetes mellitus with foot ulcer; E11.610 Type 2 diabetes mellitus with diabetic neuropathic arthropathy; B96.89 Other specified bacterial agents as the cause of diseases classified elsewhere; E11.42 Type 2 diabetes mellitus with diabetic polyneuropathy; Z95.4 Presence of other heart-valve replacement; Z79.01 Long term (current) use of anticoagulants; Z68.35 Body mass index [BMI] 35.0-35.9, adult; Z23 Encounter for immunization; Z20.828 Contact with and (suspected) exposure to other viral communicable diseases
CPT/HCPCS: 10040; 10195; 27000; 50010; 50101; 50386; 57091; 57180; 62110; 62900; 70005

== ENCOUNTER → 2020-06-01 | Outpatient (CLI) | payer OTHER, MEDICARE ==
[~2020-06-01] MED LIST changes: +ASA81BEC PO
== END ==
LOC: OPONC 09:00
PROVIDERS: ATTEND Specialist
DX: L03.116 Cellulitis of left lower limb (principal); E11.621 Type 2 diabetes mellitus with foot ulcer; L97.519 Non-pressure chronic ulcer of other part of right foot with unspecified severity; M86.9 Osteomyelitis, unspecified; Z79.01 Long term (current) use of anticoagulants
CPT/HCPCS: 95000

== ENCOUNTER → 2020-06-02 | Outpatient (CLI) | payer OTHER, MEDICARE | LOC: OPONC 09:00 | PROVIDERS: ATTEND Specialist | DX: L03.115 Cellulitis of right lower limb (principal); E11.621 Type 2 diabetes mellitus with foot ulcer; L97.519 Non-pressure chronic ulcer of other part of right foot with unspecified severity; M86.9 Osteomyelitis, unspecified; Z79.01 Long term (current) use of anticoagulants | CPT/HCPCS: 95000 ==

== ENCOUNTER → 2020-06-03 | Outpatient (CLI) | payer OTHER, MEDICARE | LOC: HYPER 08:10 | PROVIDERS: ATTEND Emergency Medicine Emergency Medical Services | DX: T81.89XA Other complications of procedures, not elsewhere classified, initial encounter (principal); E11.621 Type 2 diabetes mellitus with foot ulcer; L97.512 Non-pressure chronic ulcer of other part of right foot with fat layer exposed; E11.40 Type 2 diabetes mellitus with diabetic neuropathy, unspecified; E11.610 Type 2 diabetes mellitus with diabetic neuropathic arthropathy; I11.0 Hypertensive heart disease with heart failure; I50.32 Chronic diastolic (congestive) heart failure; E78.5 Hyperlipidemia, unspecified; E78.00 Pure hypercholesterolemia, unspecified; I25.10 Atherosclerotic heart disease of native coronary artery without angina pectoris; E66.9 Obesity, unspecified; A39.8 Other meningococcal infections; G47.30 Sleep apnea, unspecified; Z79.01 Long term (current) use of anticoagulants; Z68.32 Body mass index [BMI] 32.0-32.9, adult; Z95.4 Presence of other heart-valve replacement; Z90.89 Acquired absence of other organs; Y83.8 Other surgical procedures as the cause of abnormal reaction of the patient, or of later complication, without mention of misadventure at the time of the procedure; Y92.238 Other place in hospital as the place of occurrence of the external cause ==

== ENCOUNTER → 2020-06-03 | Outpatient (CLI) | payer OTHER, MEDICARE ==
[2020-06-03 11:26] VITALS: BP 139/40
[2020-06-03 11:38] LABS: HEMATOCRIT 32.4 % (42.0-52.0); MCHC 34.1 g/dL (28.0-37.0); RBC 3.68 mil/uL (4.50-6.00); RDW 14.4 % (10.5-14.5); WBC 10.1 thou/uL (4.0-11.0)
[2020-06-03 11:55] LABS: ALBUMIN 3.6 g/dL (3.4-5.0); CALCIUM 9.4 mg/dL (8.5-10.1); CREATININE 1.1 mg/dL (0.7-1.3); POTASSIUM 4.1 mmol/L (3.5-5.1); TOTAL BILIRUBIN 0.4 mg/dL (0.2-1.0)
[2020-06-03 12:22] LABS: TOTAL PROTEIN 7.1 g/dL (6.4-8.2)
--- NOTE | 2020-06-03 14:48 | NUR ---
IN FOR DAILY DAPTOMYCIN INFUSION FOR RT FOOT DIABETIC WOUND INFECTION/CELLULITIS. DENIED PAIN, NAUSEA, DIARRHEA, FEVER, CHILLS. SUJEY LABS FROM PICC LINE WITHOUT DIFFICULTY. ADMISSION HISTORY AND ASSESSMENT COMPLETED TOLERATED INFUSION WITHOUT INCIDENT. TO RETURN TOMORROW FOR NEXT INFUSION. DISMISSED IN STABLE CONDITION.
== END ==
LOC: OPONC 09:34
PROVIDERS: ATTEND Specialist
DX: L03.115 Cellulitis of right lower limb (principal); E11.621 Type 2 diabetes mellitus with foot ulcer; L97.519 Non-pressure chronic ulcer of other part of right foot with unspecified severity; M86.9 Osteomyelitis, unspecified; Z79.01 Long term (current) use of anticoagulants
CPT/HCPCS: 95000

== ENCOUNTER → 2020-06-04 | Outpatient (CLI) | payer OTHER, MEDICARE ==
[2020-06-04 13:33] VITALS: BP 138/46
--- NOTE | 2020-06-04 13:40 | NUR ---
ARRIVED AMBULATORY AND USE OF SCOOTER. HERE FOR INFUSION VIA PICC OF DAPTOMYCIN FOR RIGHT FOOT CELLULITIS. TOLERATED INFUSION WITHOUT ADVERSE REACTION. PICC LINE INTACT WITH BRISK BLOOD RETURN. DENIED NAUSEA, FEVER CHILLS DIARRHEA. DC IN STABLE CONDITION AFTER INFUSION. TO RETURN IN AM FOR NEXT DOSE.
== END ==
LOC: OPONC 10:08
PROVIDERS: ATTEND Specialist
DX: L03.115 Cellulitis of right lower limb (principal)
CPT/HCPCS: 95000

== ENCOUNTER → 2020-06-05 | Outpatient (CLI) | payer OTHER, MEDICARE ==
[2020-06-05 11:34] VITALS: BP 132/42
--- NOTE | 2020-06-05 12:33 | NUR ---
IN FOR DAILY DAPTOMYCIN INFUSION FOR RT FOOT DIABETIC WOUND INFECTION. DENIED PAIN, NAUSEA, DIARRHEA, FEVER, CHILLS, MUSCLE WEAKNESS. PICC SITE WNL WITH GOOD BLOOD RETURN. TOLERATED INFUSION WITHOUT INCIDENT. DR. GUERRA VISITED. TO CONTINUE TO SAME.
== END ==
LOC: OPONC 09:59
PROVIDERS: ATTEND Specialist
DX: L03.115 Cellulitis of right lower limb (principal); B95.62 Methicillin resistant Staphylococcus aureus infection as the cause of diseases classified elsewhere; E11.69 Type 2 diabetes mellitus with other specified complication
CPT/HCPCS: 95000

== ENCOUNTER → 2020-06-06 | Outpatient (CLI) | payer OTHER, MEDICARE | LOC: OPONC 09:00 | PROVIDERS: ATTEND Specialist | DX: L03.115 Cellulitis of right lower limb (principal); E11.621 Type 2 diabetes mellitus with foot ulcer; L97.519 Non-pressure chronic ulcer of other part of right foot with unspecified severity | CPT/HCPCS: 95000 ==

== ENCOUNTER → 2020-06-07 | Outpatient (CLI) | payer OTHER, MEDICARE | LOC: OPONC 09:00 | PROVIDERS: ATTEND Specialist | DX: L03.115 Cellulitis of right lower limb (principal); E11.621 Type 2 diabetes mellitus with foot ulcer; L97.519 Non-pressure chronic ulcer of other part of right foot with unspecified severity | CPT/HCPCS: 95000 ==

== ENCOUNTER → 2020-06-08 | Outpatient (CLI) | payer OTHER, MEDICARE | LOC: OPONC 09:00 | PROVIDERS: ATTEND Specialist | DX: L03.115 Cellulitis of right lower limb (principal); E11.621 Type 2 diabetes mellitus with foot ulcer; L97.519 Non-pressure chronic ulcer of other part of right foot with unspecified severity | CPT/HCPCS: 95000; 95001 ==

== ENCOUNTER → 2020-06-09 | Outpatient (CLI) | payer OTHER, MEDICARE | LOC: OPONC 09:55 | PROVIDERS: ATTEND Specialist | DX: E11.628 Type 2 diabetes mellitus with other skin complications (principal); L03.115 Cellulitis of right lower limb | CPT/HCPCS: 95000 ==

== ENCOUNTER → 2020-06-10 | Outpatient (CLI) | payer OTHER, MEDICARE ==
[2020-06-10 11:12] VITALS: BP 135/51
[2020-06-10 11:59] LABS: HEMATOCRIT 34.9 % (42.0-52.0); HEMOGLOBIN 11.6 gm/dL (14.0-18.0); MCH 29.7 pg (26.0-34.0); MCHC 33.4 g/dL (28.0-37.0); RBC 3.92 mil/uL (4.50-6.00); RDW 14.9 % (10.5-14.5); WBC 9.5 thou/uL (4.0-11.0)
--- NOTE | 2020-06-10 12:10 | NUR ---
IN FOR DAILY DAPTOMYCIN INFUSION FOR RT FOOT DIABETIC WOUND INFECTION. STATED FEELING WELL AND TOLERATING MEDICATION WITH NO FEVER/CHILLS, NAUSEA, DIARRHEA, MUSCLE WEAKNESS. SUJEY LAB FROM PICC LINE WITHOUT DIFFICULTY AND FLUSHED EASILY. TOLERATED INFUSION WITHOUT INCIDENT. PICC DRESSING CHANGED. SITE WNL. TO RETURN TOMORROW FOR THE SAME. DISMISSED IN STABLE CONDITION.
[2020-06-10 12:18] LABS: ALBUMIN 3.7 g/dL (3.4-5.0); ANION GAP 10 mmol/L (7-16); BUN 16 mg/dL (7-18); CALCIUM 9.1 mg/dL (8.5-10.1); CHLORIDE 103 mmol/L (98-107); CO2 27 mmol/L (21-32); CREATININE 1.1 mg/dL (0.7-1.3); GLUCOSE 211 mg/dL (74-106); POTASSIUM 4.1 mmol/L (3.5-5.1); SGOT 23 U/L (15-37); SGPT 60 U/L (30-65); SODIUM 140 mmol/L (136-145); TOTAL BILIRUBIN 0.5 mg/dL (0.2-1.0); TOTAL PROTEIN 7.1 g/dL (6.4-8.2)
== END ==
LOC: OPONC 10:42
PROVIDERS: ATTEND Specialist
DX: L03.115 Cellulitis of right lower limb (principal); E11.621 Type 2 diabetes mellitus with foot ulcer; L97.519 Non-pressure chronic ulcer of other part of right foot with unspecified severity
CPT/HCPCS: 95000

== ENCOUNTER → 2020-06-11 | Outpatient (CLI) | payer OTHER, MEDICARE | LOC: SJCVC 12:06 | PROVIDERS: ATTEND Internal Medicine | DX: Z51.81 Encounter for therapeutic drug level monitoring (principal); G47.30 Sleep apnea, unspecified; I11.0 Hypertensive heart disease with heart failure; I50.30 Unspecified diastolic (congestive) heart failure; Z95.2 Presence of prosthetic heart valve; Z79.01 Long term (current) use of anticoagulants; Z79.899 Other long term (current) drug therapy ==

== ENCOUNTER → 2020-06-11 | Outpatient (CLI) | payer OTHER, MEDICARE ==
[2020-06-11 11:15] VITALS: BP 160/56
--- NOTE | 2020-06-11 11:47 | NUR ---
IN FOR DAILY DAPTOMYCIN INFUSION FOR RT FOOT DIABETIC WOUND. STATED FEELING WELL. DENIED FEVER, CHILLS, NAUSEA, DIARRHEA, MUSCLE WEAKNESS. TOLERATED INFUSION WITHOUT INCIDENT. TO RETURN TOMORROW FOR INFUSION AND CLINIC VISIT WITH DR. GUERRA. DISMISSED IN STABLE CONDITION.
== END ==
LOC: OPONC 09:47
PROVIDERS: ATTEND Specialist
DX: E11.628 Type 2 diabetes mellitus with other skin complications (principal); L03.115 Cellulitis of right lower limb
CPT/HCPCS: 95000

== ENCOUNTER → 2020-06-12 | Outpatient (CLI) | payer OTHER, MEDICARE ==
[2020-06-12 14:55] VITALS: BP 144/36
--- NOTE | 2020-06-12 14:59 | NUR ---
IN FOR DAILY DAPTOMYCIN INFUSION. STATED FEELING WELL. DENIED PAIN, NAUSEA, DIARRHEA, FEVER/CHILLS. TOLERATED INFUSION WITHOUT INCIDENT. DR. GUERRA UNABLE TO SEE PATIENT TODAY SO WILL SEE TOMORROW HERE IN CLINIC AT 1330. SALINE LOCKED PICC LINE. SITE WNL. DISMISSED IN STABLE CONDITION.
== END ==
LOC: OPONC 09:43
PROVIDERS: ATTEND Specialist
DX: E11.628 Type 2 diabetes mellitus with other skin complications (principal); L03.115 Cellulitis of right lower limb
CPT/HCPCS: 95000

== ENCOUNTER → 2020-06-13 | Outpatient (CLI) | payer OTHER, MEDICARE | LOC: OPONC 09:00 | PROVIDERS: ATTEND Specialist | DX: L03.115 Cellulitis of right lower limb (principal); E11.621 Type 2 diabetes mellitus with foot ulcer; L97.519 Non-pressure chronic ulcer of other part of right foot with unspecified severity | CPT/HCPCS: 95000 ==

== ENCOUNTER → 2020-06-14 | Outpatient (CLI) | payer OTHER, MEDICARE ==
[2020-06-14 12:38] VITALS: BP 137/36
--- NOTE | 2020-06-14 13:20 | NUR ---
IN FOR DAILY DAPTOMYCIN INFUSION FOR RT FOOT DIABETIC WOUND INFECTION. STATED FEELING WELL. DENIED FEVER/CHILLS, NAUSEA, DIARRHEA, PAIN. TOLERATED INFUSION WITHOUT INCIDENT. DISMISSED IN GOOD CONDITION.
== END ==
LOC: OPONC 10:00
PROVIDERS: ATTEND Specialist
DX: L03.115 Cellulitis of right lower limb (principal); E11.621 Type 2 diabetes mellitus with foot ulcer; L97.519 Non-pressure chronic ulcer of other part of right foot with unspecified severity
CPT/HCPCS: 95000

== ENCOUNTER → 2020-06-15 | Outpatient (CLI) | payer OTHER, MEDICARE ==
[2020-06-15 11:03] VITALS: BP 150/47
--- NOTE | 2020-06-15 11:44 | NUR ---
IN FOR DAILY DAPTOMYCIN INFUSION FOR RT FOOT DIABETIC FOOT WOUND. DENIED PAIN, DIARRHEA, NAUSEA, FEVER/CHILLS. TOLERATED INFUSION WITHOUT INCIDENT. DISMISSED IN GOOD CONDITION.
== END ==
LOC: OPONC 10:00
PROVIDERS: ATTEND Specialist
DX: L03.115 Cellulitis of right lower limb (principal); E11.621 Type 2 diabetes mellitus with foot ulcer; L97.519 Non-pressure chronic ulcer of other part of right foot with unspecified severity
CPT/HCPCS: 95000

== ENCOUNTER → 2020-06-16 | Outpatient (CLI) | payer OTHER, MEDICARE ==
[2020-06-16 11:10] VITALS: BP 136/46
--- NOTE | 2020-06-16 12:00 | NUR ---
HERE FOR DAILY IV DAPTOMYCIN INFUSION. REPORTS DOING WELL. JUST CAME FROM THE WOUND CARE CLINIC. STATES DR. WALTON DEBRIDED WOUND AREA, PULLED OFF SOME SURROUNDING SKIN, STATES ALL LOOKING GOOD (PER PATIENT). PT HAS SUPPLIES AT HOME AND DOES DAILY DRESSING CHANGES. DENIES N/V/DIARRHEA, FEVER/CHILLS, MUSCLE WEAKNESS OR OTHER CONCERNS. TOLERATED INFUSION WITHOUT INCIDENT. DISMISSED IN STABLE CONDITION. SCHEDULED TO RETURN AGAIN TOMORROW.
== END ==
LOC: OPONC 10:08
PROVIDERS: ATTEND Specialist
DX: L03.115 Cellulitis of right lower limb (principal); E11.621 Type 2 diabetes mellitus with foot ulcer; L97.519 Non-pressure chronic ulcer of other part of right foot with unspecified severity
CPT/HCPCS: 95000

== ENCOUNTER → 2020-06-16 | Outpatient (CLI) | payer OTHER, MEDICARE | LOC: HYPER 10:04 | PROVIDERS: ATTEND Emergency Medicine Emergency Medical Services | DX: T81.89XD Other complications of procedures, not elsewhere classified, subsequent encounter (principal); E11.621 Type 2 diabetes mellitus with foot ulcer; L97.512 Non-pressure chronic ulcer of other part of right foot with fat layer exposed; L84 Corns and callosities; E11.610 Type 2 diabetes mellitus with diabetic neuropathic arthropathy; E11.40 Type 2 diabetes mellitus with diabetic neuropathy, unspecified; I11.0 Hypertensive heart disease with heart failure; I50.32 Chronic diastolic (congestive) heart failure; E78.5 Hyperlipidemia, unspecified; E78.00 Pure hypercholesterolemia, unspecified; I25.10 Atherosclerotic heart disease of native coronary artery without angina pectoris; E66.9 Obesity, unspecified; A39.8 Other meningococcal infections; G47.30 Sleep apnea, unspecified; Z79.01 Long term (current) use of anticoagulants; Z68.32 Body mass index [BMI] 32.0-32.9, adult; Z95.4 Presence of other heart-valve replacement; Z90.89 Acquired absence of other organs; Y83.8 Other surgical procedures as the cause of abnormal reaction of the patient, or of later complication, without mention of misadventure at the time of the procedure ==

== ENCOUNTER → 2020-06-17 | Outpatient (CLI) | payer OTHER, MEDICARE ==
[2020-06-17 11:49] LABS: HEMATOCRIT 36.9 % (42.0-52.0); HEMOGLOBIN 12.2 gm/dL (14.0-18.0); MCH 29.3 pg (26.0-34.0); MCV 88.7 fL (80.0-100.0); RBC 4.16 mil/uL (4.50-6.00); RDW 15.3 % (10.5-14.5); WBC 7.7 thou/uL (4.0-11.0)
[2020-06-17 12:00] LABS: ANION GAP 12 mmol/L (7-16); BUN 18 mg/dL (7-18); CALCIUM 9.2 mg/dL (8.5-10.1); CHLORIDE 103 mmol/L (98-107); CO2 26 mmol/L (21-32); CREATININE 1.3 mg/dL (0.7-1.3); GLUCOSE 196 mg/dL (74-106); POTASSIUM 3.9 mmol/L (3.5-5.1); SGOT 24 U/L (15-37); SGPT 46 U/L (30-65); SODIUM 141 mmol/L (136-145); TOTAL BILIRUBIN 0.5 mg/dL (0.2-1.0); TOTAL PROTEIN 7.5 g/dL (6.4-8.2)
[2020-06-17 14:27] VITALS: BP 121/58
--- NOTE | 2020-06-17 14:31 | NUR ---
IN FOR DAILY DAPTOMYCIN INFUSION FOR RT FOOT DIABETIC WOUND. STATED FEELING WELL. DENIED FEVER/CHILLS, NAUSEA, DIARRHEA, PAIN. SUJEY LABS FROM PICC LINE WITHOUT DIFFICULTY AND SENT TO LAB. TOLERATED INFUSION WITHOUT INCIDENT. PICC DRESSING CHANGED. SITE WNL. DISMISSED IN STABLE CONDITION.
== END ==
LOC: OPONC 10:41
PROVIDERS: ATTEND Specialist
DX: L03.115 Cellulitis of right lower limb (principal); E11.621 Type 2 diabetes mellitus with foot ulcer; L97.519 Non-pressure chronic ulcer of other part of right foot with unspecified severity
CPT/HCPCS: 95000

== ENCOUNTER → 2020-06-18 | Outpatient (CLI) | payer OTHER, MEDICARE ==
[2020-06-18 11:33] VITALS: BP 101/59
--- NOTE | 2020-06-18 12:25 | NUR ---
ARRIVED AMBULATORY WITH USE OF SCOOTER. DENIES PAIN, FEVER CHILLS OR DIARRHA. RIGHT BOOT IN PLACE. PICC LINE FLUSHED. DAPTOMYCIN INFUSED WITHOUT ADVERSE REACTION. TO RETURN TOMORROW AT THE SAME TIME FOR NEXT INFUSION. DC IN STABLE CONDITION.
== END ==
LOC: OPONC 10:21
PROVIDERS: ATTEND Specialist
DX: L03.115 Cellulitis of right lower limb (principal); E11.621 Type 2 diabetes mellitus with foot ulcer; L97.519 Non-pressure chronic ulcer of other part of right foot with unspecified severity
CPT/HCPCS: 95000

== ENCOUNTER → 2020-06-19 | Outpatient (CLI) | payer OTHER, MEDICARE ==
[2020-06-19 12:27] VITALS: BP 142/49
--- NOTE | 2020-06-19 12:30 | NUR ---
IN FOR DAILY DAPTOMYCIN INFUSION. STATED FEELING WELL. DENIED NAUSEA, DIARRHEA, FEVER/CHILLS, PAIN. TOLERATED INFUSION WITHOUT INCIDENT. DISMISSED IN STABLE CONDITION.
== END ==
LOC: OPONC 09:46
PROVIDERS: ATTEND Specialist
DX: L03.115 Cellulitis of right lower limb (principal); E11.621 Type 2 diabetes mellitus with foot ulcer; L97.519 Non-pressure chronic ulcer of other part of right foot with unspecified severity
CPT/HCPCS: 95000

== ENCOUNTER → 2020-06-20 | Outpatient (CLI) | payer OTHER, MEDICARE ==
[2020-06-20 12:30] VITALS: BP 153/62
--- NOTE | 2020-06-20 13:55 | NUR ---
HERE FOR DAILY IV DAPTOMYCIN INFUSION. REPORTS DOING WELL, FEELING WELL. DENIES N/V/DIARRHEA, FEVER/CHILLS, MUSCLE PAIN OR WEAKNESS. SAW DR. GUERRA TODAY WITH PLAN TO CONTINUE THE SAME FOR A TOTAL OF 6 WEEKS. WOUND BED RT FOOT LOOKS CLEAN, STILL OPEN, PT STATES BEGINNING TO FILL IN. DR. GUERRA ADVISED PT TO STOP HIS ATORVASTATIN WHILE ON DAPTOMYCIN, PT VERBALIZES UNDERSTANDING. DISMISSED IN STABLE CONDITION. PT AWARE OF WEEKEND INFUSION PLAN.
--- NOTE | 2020-06-21 16:16 | HC ---
[facility] [place] [address] CONSULTATION Name: LETITIA FERRO Jade Room #: [facility]#: [id number] Admission: 06/20/20 Attend Phys: Arya Bowie MD Discharge: Date of : 55 Report #: [id number] THIS REPORT FOR: cc: FAM - Family physician unknown FAM - Family physician unknown Arya Bowie MD ~ DATE OF SERVICE: 06/20/2020 HISTORY OF PRESENT ILLNESS: The patient returns in followup of his right midfoot Charcot wound with infection, MRSA, group G streptococcus. He remains on daptomycin and his postoperative day 05/28/2020 from debridement of the right foot. He has a right upper extremity PICC, which is functioning well. He is tolerating daptomycin without significant side effect. He has had no increased pain in the right foot. Has been seeing wound care service in the outpatient clinic weekly. Continues his dressing changes. Minimal drainage. No increased swelling or pain. He has continued to offload the right foot. REVIEW OF SYSTEMS: Denies any cardiopulmonary, GI or complaints. PHYSICAL EXAMINATION: VITAL SIGNS: Afebrile and hemodynamically stable. EXTREMITIES: Right foot wound had a relatively clean base with good granulation tissue formation. No surrounding cellulitis. Right upper extremity PICC was without erythema or drainage. CHEST: Clear. HEART: Regular. ABDOMEN: Soft and nontender. LABORATORY STUDIES: Reviewed. IMPRESSION: 1. Methicillin-resistant Staphylococcus aureus and group G Streptococcus infection involving the right mid foot wound with soft tissue abscess that has been debrided and drained. X-ray showed Charcot foot changes without definitive osteomyelitis. I do note that the wound was debrided with no bone resection. 2. Aortic valve replacement. RECOMMENDATIONS: We will continue IV antibiotic therapy with daptomycin. I have reviewed his laboratory studies. The patient will discontinue atorvastatin while on daptomycin. His current CPK levels have been normal. He will continue [facility] [address] [place] [address] CONSULTATION Name: KASIELETITIA Room #: [facility]#: [id number] Admission: 06/20/20 Attend Phys: Arya Bowie MD Discharge: Date of : 55 Report #: [id number] with his wound care and dressing changes as outlined by Dr. Acosta. Follow up outpatient clinic in 1 week. <ELECTRONICALLY SIGNED> By: Arya Bowie MD 06/21/20 1616 1448 1905 Arya Bowie MD /nt
== END ==
LOC: OPONC 12:36
PROVIDERS: ATTEND Specialist
DX: L03.115 Cellulitis of right lower limb (principal)
CPT/HCPCS: 95000

== ENCOUNTER → 2020-06-21 | Outpatient (CLI) | payer OTHER, MEDICARE | LOC: OPONC 09:00 | PROVIDERS: ATTEND Specialist | DX: L03.115 Cellulitis of right lower limb (principal); E11.621 Type 2 diabetes mellitus with foot ulcer; L97.519 Non-pressure chronic ulcer of other part of right foot with unspecified severity | CPT/HCPCS: 95000 ==

== ENCOUNTER → 2020-06-22 | Outpatient (CLI) | payer OTHER, MEDICARE ==
[2020-06-22 11:00] VITALS: BP 133/59
== END ==
LOC: OPONC 09:00
PROVIDERS: ATTEND Specialist
DX: L03.115 Cellulitis of right lower limb (principal); E11.621 Type 2 diabetes mellitus with foot ulcer; L97.519 Non-pressure chronic ulcer of other part of right foot with unspecified severity
CPT/HCPCS: 95000

== ENCOUNTER → 2020-06-23 | Outpatient (CLI) | payer OTHER, MEDICARE ==
[2020-06-23 11:20] VITALS: BP 163/48
--- NOTE | 2020-06-23 12:00 | NUR ---
HERE FOR DAILY IV DAPTOMYCIN. REPORTS DOING WELL, FEELING WELL. DENIES N/V/DIARRHEA, FEVER/CHILLS. DID NOTE AN IRREGULAR HEART RATE THIS MORNING WHICH THIS NURSE HAS NOT NOTICED IN PAST. PT IS UNFAMILIAR WITH HAVING EVER BEEN TOLD THIS BEFORE. DOES STATE HE CAN NOTICE A LITTLE FUNNY FEELING IN HIS CHEST. NO PAIN OR ANY OTHER S/S. 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 HUGHES, TO SEE IF ANY F/U NEEDED. DR. HUGHES STATES LOOKS OK, NO NEED TO F/U. PT TOLERATED INFUSION WITHOUT INCIDENT. DISMISSED IN STABLE CONDITION. WILL RETURN IN THE MORNING.
== END ==
LOC: OPONC 10:34
PROVIDERS: ATTEND Specialist
DX: L03.115 Cellulitis of right lower limb (principal); E11.621 Type 2 diabetes mellitus with foot ulcer; L97.519 Non-pressure chronic ulcer of other part of right foot with unspecified severity
CPT/HCPCS: 95000

== ENCOUNTER → 2020-06-24 | Outpatient (CLI) | payer OTHER, MEDICARE ==
[2020-06-24 09:29] LABS: MCH 29.6 pg (26.0-34.0); MCHC 33.3 g/dL (28.0-37.0); MCV 88.8 fL (80.0-100.0); RBC 4.06 mil/uL (4.50-6.00); RDW 15.3 % (10.5-14.5); WBC 6.8 thou/uL (4.0-11.0)
[2020-06-24 09:32] VITALS: BP 159/44
[2020-06-24 09:44] LABS: ALBUMIN 3.9 g/dL (3.4-5.0); ANION GAP 12 mmol/L (7-16); BUN 18 mg/dL (7-18); CALCIUM 8.8 mg/dL (8.5-10.1); CHLORIDE 103 mmol/L (98-107); CO2 25 mmol/L (21-32); CREATININE 1.1 mg/dL (0.7-1.3); GLUCOSE 251 mg/dL (74-106); SGOT 20 U/L (15-37); SGPT 44 U/L (30-65); SODIUM 140 mmol/L (136-145); TOTAL BILIRUBIN 0.4 mg/dL (0.2-1.0); TOTAL PROTEIN 7.3 g/dL (6.4-8.2)
--- NOTE | 2020-06-24 10:03 | NUR ---
IN FOR DAILY DAPTOMYCIN INFUSION. STATED FEELING WELL. DENIED PAIN, NAUSEA, DIARRHEA, FEVER AND CHILLS. TOLERATED INFUSION WITHOUT INCIDENT. CHANGED PICC LINE DRESSING. SKIN IRRITATED AROUND EDGE OF DRESSING. COVERED WITH GAUZE AND MEDFIX TAPE. DISMISSED IN STABLE CONDITION.
== END ==
LOC: OPONC 09:29
PROVIDERS: ATTEND Specialist
DX: L03.115 Cellulitis of right lower limb (principal); E11.621 Type 2 diabetes mellitus with foot ulcer; L97.519 Non-pressure chronic ulcer of other part of right foot with unspecified severity
CPT/HCPCS: 95000

== ENCOUNTER → 2020-06-25 | Outpatient (CLI) | payer OTHER, MEDICARE ==
[2020-06-25 11:14] VITALS: BP 142/64
--- NOTE | 2020-06-25 11:45 | NUR ---
HERE FOR DAILY DAPTOMYCIN. VOICES NO COMPLAINTS. DENIES CHILLS OR FEVER, DIARRHEA, OR NAUSEA. STATES HE HAS BEEN FEELING WELL. DAPTOMYCIN INFUSED WITHOUT ADVERSE REACTION VIA CHRISTEI PICC LINE. DC IN STABLE CONDITION FOLLOWING INFUSION. TO RETURN IN AM.
== END ==
LOC: OPONC 10:13
PROVIDERS: ATTEND Specialist
DX: L03.115 Cellulitis of right lower limb (principal); E11.621 Type 2 diabetes mellitus with foot ulcer; L97.519 Non-pressure chronic ulcer of other part of right foot with unspecified severity
CPT/HCPCS: 95000

== ENCOUNTER → 2020-06-26 | Outpatient (CLI) | payer OTHER, MEDICARE ==
[2020-06-26 11:07] VITALS: BP 154/55
--- NOTE | 2020-06-26 12:56 | NUR ---
ARRIVED FOR DAILY DAPTOMYCIN. STATES HAS BEEN FEELING GOOD. CHANGING DRESSING TO FOOT DAILY. DENIES FEVER, CHILLS, OR DIARHHEA. PICC LINE FLUSHED EASILY. RECIEVED ANTIBIOTIC THERAPY WITHUT ADVERSE REATION. DC IN STABLE CONDITION. TO RETURN TOMORROW AT NOON FOR ANTIBIOTIC AND TO SEE DR. GUERRA.
== END ==
LOC: OPONC 12:56
PROVIDERS: ATTEND Specialist
DX: L03.115 Cellulitis of right lower limb (principal); E11.621 Type 2 diabetes mellitus with foot ulcer; L97.519 Non-pressure chronic ulcer of other part of right foot with unspecified severity
CPT/HCPCS: 95000

== ENCOUNTER → 2020-06-27 | Outpatient (CLI) | payer OTHER, MEDICARE ==
[2020-06-27 12:08] VITALS: BP 162/55
--- NOTE | 2020-06-27 14:27 | NUR ---
ARRIVED WITH SCOOTER FOR ANTIBIOTIC THERAPY. DENIES FEVER CHILLS OR NAUSEA AND DIARRHEA. RECIEVED DAPTOMYCIN INFUSION AND TOLERATED WITHOUT ADVERSE REACTION. DR. GUERRA HERE TO SEE PATIENT. RIGHT FOOT DRESSING REMOVED, WOUND IS GETTING SMALLER, GRANULATION TISSUE NOTED, AREA PINK WITH MINIMAL DRAINAGE. WOUND REDRESSED AFTER SEEN BY DR. GUERRA. PATIENT DISCHARED IN STABLE CONDITION. TO RETURN TUESDAY FOR NEXT ANTIBIOTIC.
--- NOTE | 2020-06-30 13:31 | HC ---
[facility] [place] [address] CONSULTATION Name: LETITIA FERRO Jade Room #: REG [facility]#: [id number] Admission: 06/27/20 Attend Phys: Arya Bowie MD Discharge: Date of : 55 Report #: [id number] THIS REPORT FOR: cc: FAM - Family physician unknown FAM - Family physician unknown Arya Bowie MD ~ DATE OF SERVICE: 06/27/2020 FOLLOWUP OUTPATIENT INFECTIOUS DISEASE CLINIC VISIT HISTORY OF PRESENT ILLNESS: The patient returns in followup of his right midfoot Charcot wound infection with MRSA and group G streptococcus. Remains on daptomycin. Following his postoperative day, 05/28/2020 where he had debridement of the right foot. Continues with his right upper extremity PICC, which is functioning well. He does have some surrounding dermatitis from his dressing, which was evaluated and addressed by nursing services this morning. He is tolerating his daptomycin without side effect. He remains nonweightbearing to the right foot in order to protect this wound. He continues with outpatient wound care weekly. He has had minimal drainage. No increased swelling or pain. He feels that the wound is getting smaller. REVIEW OF SYSTEMS: Denies any cardiopulmonary, GI or complaints. No arthritis, myalgias, arthralgias. He has come off his statin for his lipid management. PHYSICAL EXAMINATION: VITAL SIGNS: He is afebrile and hemodynamically stable. ABDOMEN: Soft and nontender. EXTREMITIES: Right upper extremity PICC was dressed and dry. Right foot wound had clean granulation tissue to the base. Mild surrounding erythema, but most of seeing more reactive erythema that resolved with leg elevation. LABORATORY STUDIES: Reviewed. IMPRESSION: 1. Methicillin-resistant Staphylococcus aureus and group G Streptococcus infection involving the right mid foot wound with soft tissue abscess in the setting of Charcot foot. No definite osteomyelitis seen on x-ray, but in this setting is always a potential. 2. Aortic valve replacement, stable. RECOMMENDATIONS: We will continue his IV antibiotic therapy. Continue with [facility] [address] [place] [address] CONSULTATION Name: LETITIA FERRO Room #: [facility] Latosha#: [id number] Admission: 06/27/20 Attend Phys: Arya Bowie MD Discharge: Date of : 55 Report #: [id number] [facility] outpatient [facility] evaluations. Anticipate finishing 6 weeks of IV therapy as the wound continues to show progress. Follow up in 1 week. <ELECTRONICALLY SIGNED> By: Arya Bowie MD 06/30/20 1331 1412 1822 Arya Bowie MD /nt
== END ==
LOC: OPONC 12:48
PROVIDERS: ATTEND Specialist
DX: L03.115 Cellulitis of right lower limb (principal); E11.621 Type 2 diabetes mellitus with foot ulcer; L97.519 Non-pressure chronic ulcer of other part of right foot with unspecified severity
CPT/HCPCS: 95000

== ENCOUNTER → 2020-06-28 | Outpatient (CLI) | payer OTHER, MEDICARE | LOC: OPONC 09:00 | PROVIDERS: ATTEND Specialist | DX: L03.115 Cellulitis of right lower limb (principal); E11.621 Type 2 diabetes mellitus with foot ulcer; L97.519 Non-pressure chronic ulcer of other part of right foot with unspecified severity | CPT/HCPCS: 95000 ==

== ENCOUNTER → 2020-06-29 | Outpatient (CLI) | payer OTHER, MEDICARE | LOC: OPONC 09:00 | PROVIDERS: ATTEND Specialist | DX: L03.115 Cellulitis of right lower limb (principal); E11.621 Type 2 diabetes mellitus with foot ulcer; L97.519 Non-pressure chronic ulcer of other part of right foot with unspecified severity | CPT/HCPCS: 95000 ==

== ENCOUNTER → 2020-06-30 | Outpatient (CLI) | payer OTHER, MEDICARE | LOC: SJCVC 12:17 | PROVIDERS: ATTEND Internal Medicine | DX: Z51.81 Encounter for therapeutic drug level monitoring (principal); I11.0 Hypertensive heart disease with heart failure; I50.32 Chronic diastolic (congestive) heart failure; E78.5 Hyperlipidemia, unspecified; Z79.01 Long term (current) use of anticoagulants; Z95.4 Presence of other heart-valve replacement; Z79.82 Long term (current) use of aspirin; Z79.899 Other long term (current) drug therapy ==

== ENCOUNTER → 2020-06-30 | Outpatient (CLI) | payer OTHER, MEDICARE | LOC: HYPER 07:56 | PROVIDERS: ATTEND Emergency Medicine Emergency Medical Services | DX: T81.89XD Other complications of procedures, not elsewhere classified, subsequent encounter (principal); E11.621 Type 2 diabetes mellitus with foot ulcer; L97.512 Non-pressure chronic ulcer of other part of right foot with fat layer exposed; L84 Corns and callosities; E11.610 Type 2 diabetes mellitus with diabetic neuropathic arthropathy; E11.40 Type 2 diabetes mellitus with diabetic neuropathy, unspecified; I11.0 Hypertensive heart disease with heart failure; I50.32 Chronic diastolic (congestive) heart failure; E78.5 Hyperlipidemia, unspecified; E78.00 Pure hypercholesterolemia, unspecified; I25.10 Atherosclerotic heart disease of native coronary artery without angina pectoris; A39.8 Other meningococcal infections; G47.30 Sleep apnea, unspecified; Y83.8 Other surgical procedures as the cause of abnormal reaction of the patient, or of later complication, without mention of misadventure at the time of the procedure ==

== ENCOUNTER → 2020-06-30 | Outpatient (CLI) | payer OTHER, MEDICARE ==
[2020-06-30 11:18] VITALS: BP 139/54
--- NOTE | 2020-06-30 12:23 | NUR ---
IN FOR DAILY DAPTOMYCIN INFUSION. STATED FEELING WELL. DENIED PAIN, NAUSEA, DIARRHEA, FEVER/CHILLS, MUSCLE WEAKNESS. TOLERATED INFUSION WITHOUT INCIDENT. TO RETURN TOMORROW FOR THE SAME. DISMISSED IN GOOD CONDITION.
== END ==
LOC: OPONC 11:39
PROVIDERS: ATTEND Specialist
DX: L03.115 Cellulitis of right lower limb (principal); E11.621 Type 2 diabetes mellitus with foot ulcer; L97.519 Non-pressure chronic ulcer of other part of right foot with unspecified severity
CPT/HCPCS: 95000

== ENCOUNTER → 2020-07-01 | Outpatient (CLI) | payer OTHER, MEDICARE ==
[2020-07-01 10:47] LABS: HEMATOCRIT 38.9 % (42.0-52.0); HEMOGLOBIN 12.9 gm/dL (14.0-18.0); MCH 29.3 pg (26.0-34.0); MCHC 33.2 g/dL (28.0-37.0); RBC 4.42 mil/uL (4.50-6.00); RDW 14.6 % (10.5-14.5); WBC 7.6 thou/uL (4.0-11.0)
[2020-07-01 11:05] LABS: ALBUMIN 4.2 g/dL (3.4-5.0); ANION GAP 12 mmol/L (7-16); BUN 16 mg/dL (7-18); CALCIUM 9.2 mg/dL (8.5-10.1); CHLORIDE 103 mmol/L (98-107); CO2 25 mmol/L (21-32); CREATININE 1.1 mg/dL (0.7-1.3); GLUCOSE 129 mg/dL (74-106); POTASSIUM 4.2 mmol/L (3.5-5.1); SGOT 26 U/L (15-37); SGPT 42 U/L (30-65); SODIUM 140 mmol/L (136-145); TOTAL BILIRUBIN 0.5 mg/dL (0.2-1.0); TOTAL PROTEIN 7.8 g/dL (6.4-8.2)
[2020-07-01 12:38] VITALS: BP 156/52
--- NOTE | 2020-07-01 12:40 | NUR ---
IN FOR DAILY DAPTOMYCIN INFUSION. STATED FEELING WELL. DENIED PAIN, NAUSEA, DIARRHEA, FEVER OR CHILLS, MUSCLE WEAKNESS. TOLERATED INFUSION WITHOUT INCIDENT. CHANGED PICC DRESSING. SKIN IRRITATION NOTED UNDER DRESSING. REPOSITIONED DRESSING AND APPLIED GAUZE WITH MEDFIX TAPE. SKIN IRRITATION MUCH BETTER FROM LAST WEEK. SUJEY LABS FROM PICC LINE WITHOUT DIFFICULTY. DISMISSED IN GOOD CONDITION.
== END ==
LOC: OPONC 14:15
PROVIDERS: ATTEND Specialist
DX: L03.115 Cellulitis of right lower limb (principal); E11.621 Type 2 diabetes mellitus with foot ulcer; L97.519 Non-pressure chronic ulcer of other part of right foot with unspecified severity
CPT/HCPCS: 95000

== ENCOUNTER → 2020-07-02 | Outpatient (CLI) | payer OTHER, MEDICARE ==
[2020-07-02 11:07] VITALS: BP 141/50
--- NOTE | 2020-07-02 11:37 | NUR ---
HERE FOR DAILY IV DAPTOMYCIN. REPORTS DOING WELL, FEELING WELL. DENIES N/V/DIARRHEA, FEVER/CHILLS. HAS MILD PAIN RT FOOT AFTER SLIPPING ON SCOOTER AND PLANTING HIS RIGHT FOOT HARD ONTO THE FLOOR LAST EVENING. STATES LOOKS OK THIS MORNING AND PAIN IS BETTER--FEELS PAIN R/T BONE WITH CHARCOK FOOT RATHER THAN THE WOUND. TOLERATED INFUSION WITHOUT INCIDENT. RT ARM PICC LINE COVERED WITH GAUZE DRESSING AND TAPE D/T SKIN IRRITATION WITH TRANSPARENT DRESSING. DSG WAS JUST PLACED YESTERDAY SO LEFT INTACT. DISMISSED IN STABLE CONDITION. WILL RETURN AGAIN TOMORROW MORNING.
== END ==
LOC: OPONC 09:46
PROVIDERS: ATTEND Specialist
DX: L03.115 Cellulitis of right lower limb (principal); E11.621 Type 2 diabetes mellitus with foot ulcer; L97.519 Non-pressure chronic ulcer of other part of right foot with unspecified severity
CPT/HCPCS: 95000

== ENCOUNTER → 2020-07-03 | Outpatient (CLI) | payer OTHER, MEDICARE ==
[2020-07-03 10:33] VITALS: BP 145/60
--- NOTE | 2020-07-03 10:36 | NUR ---
IN FOR DAILY DAPTOMYCIN INFUSION. STATED FEELING WELL. DENIED PAIN, NAUSEA, DIARRHEA, FEVER/CHILLS, MUSCLE WEAKNESS. TOLERATED INFUSION WITHOUT INCIDENT. CONTINUES TO WEAR OPEN TOED BOOT ON RT FOOT. DRESSING C/D/I. TO RETURN TOMORROW TO SEE DR. GUERRA AND GET INFUSION. DISMISSED IN GOOD CONDITION.
== END ==
LOC: OPONC 10:07
PROVIDERS: ATTEND Specialist
DX: L03.115 Cellulitis of right lower limb (principal); E11.621 Type 2 diabetes mellitus with foot ulcer; L97.519 Non-pressure chronic ulcer of other part of right foot with unspecified severity
CPT/HCPCS: 95000

== ENCOUNTER → 2020-07-04 | Outpatient (CLI) | payer OTHER, MEDICARE ==
[2020-07-04 17:39] VITALS: BP 141/39
--- NOTE | 2020-07-04 17:41 | NUR ---
IN FOR DAILY DAPTOMYCIN INFUSION. STATED FEELING WELL. DENIED NAUSEA, DIARRHEA, FEVER, CHILLS, MUSCLE WEAKNESS OR PAIN. TOLERATED INFUSION WITHOUT INCIDENT. DR. GUERRA VISITED. WOUND TO RT FOOT CLEAN, PINK WITH SMALL AMOUNT OF SANGUINOUS DRAINAGE. EDGES ARE CLOSING IN. TO CONTINUE THE SAME FOR ONE MORE WEEK AND THEN TRANSITION TO ORAL ANTIBIOTICS. DISMISSED IN GOOD CONDITION.
--- NOTE | 2020-07-05 21:48 | HC ---
[facility] [place] [address] CONSULTATION Name: LETITIA FERRO Jade Room #: REG [facility]#: [id number] Admission: 07/04/20 Attend Phys: Arya Bowie MD Discharge: Date of : 55 Report #: [id number] THIS REPORT FOR: cc: [place] - No family physician/PCP FAM - No family physician/PCP Arya Bowie MD ~ DATE OF SERVICE: 07/04/2020 INFECTIOUS DISEASE FOLLOWUP CONSULTATION OUTPATIENT CLINIC HISTORY OF PRESENT ILLNESS: The patient returns in followup of his right midfoot Charcot wound infection due to MRSA and group G streptococcus. He remains on daptomycin following his surgery performed on 05/28/2020 with debridement of the right foot. He has a right upper extremity PICC, which is functioning well. The foot wound drainage has diminished in the surrounding. Dermatitis has improved significantly from his last visit. He remains on daptomycin without side effect. He remains nonweightbearing to the right foot. Denies any fever, chills or sweats. REVIEW OF SYSTEMS: Notes no cardiopulmonary, GI or complaints. From his daptomycin, there has been no myalgias, arthralgias, cough or shortness of breath. PHYSICAL EXAMINATION: VITAL SIGNS: Afebrile and hemodynamically stable. GENERAL: He is alert and cooperative and pleasant, in no acute distress. EXTREMITIES: Right upper extremity PICC without erythema or drainage. His right foot wound continues to granulate in nicely. The wound depth is minimal now and has had no surrounding erythema or fluctuance. LABORATORY STUDIES: All within normal limits including CBC, CMP, ESR and CRP. IMPRESSION: Methicillin-resistant Staphylococcus aureus and group G streptococcal infection involving right midfoot Charcot with associated abscess. Although, no definite osteomyelitis was seen on imaging studies, he is at risk for such. In addition, the patient has aortic valve replacement, which is stable. PLAN: Plan will be to continue his IV antibiotic therapy and follow up next week. At that point, we would switch to enteral therapy until his wound closes. <ELECTRONICALLY SIGNED> By: Arya Bowie MD 07/05/20 2148 1441 1801 Arya Bowie MD /nt
== END ==
LOC: OPONC 14:33
PROVIDERS: ATTEND Specialist
DX: L03.115 Cellulitis of right lower limb (principal); E11.621 Type 2 diabetes mellitus with foot ulcer; L97.519 Non-pressure chronic ulcer of other part of right foot with unspecified severity
CPT/HCPCS: 95000

== ENCOUNTER → 2020-07-05 | Outpatient (CLI) | payer OTHER, MEDICARE | LOC: OPONC 09:17 | PROVIDERS: ATTEND Specialist | DX: L03.115 Cellulitis of right lower limb (principal); E11.621 Type 2 diabetes mellitus with foot ulcer; L97.519 Non-pressure chronic ulcer of other part of right foot with unspecified severity | CPT/HCPCS: 95000 ==

== ENCOUNTER → 2020-07-06 | Outpatient (CLI) | payer OTHER, MEDICARE | LOC: OPONC 09:20 | PROVIDERS: ATTEND Specialist | DX: L03.115 Cellulitis of right lower limb (principal); E11.621 Type 2 diabetes mellitus with foot ulcer; L97.519 Non-pressure chronic ulcer of other part of right foot with unspecified severity | CPT/HCPCS: 95000 ==

== ENCOUNTER → 2020-07-07 | Outpatient (CLI) | payer OTHER, MEDICARE ==
[2020-07-07 11:39] VITALS: BP 146/55
--- NOTE | 2020-07-07 12:21 | NUR ---
HERE FOR DAILY IV DAPTOMYCIN INFUSION. REPORTS DOING WELL, FEELING WELL. PLEASED THAT THIS IS HIS LAST PLANNED WEEK. DENIES N/V/DIARRHEA, FEVER/CHILLS, PAIN. TOLERATED INFUSION WITHOUT INCIDENT. DISMISSED IN STABLE CONDITION. WILL RETURN AGAIN IN THE MORNING.
== END ==
LOC: OPONC 09:24
PROVIDERS: ATTEND Specialist
DX: L03.115 Cellulitis of right lower limb (principal); E11.621 Type 2 diabetes mellitus with foot ulcer; L97.519 Non-pressure chronic ulcer of other part of right foot with unspecified severity
CPT/HCPCS: 95000

== ENCOUNTER → 2020-07-08 | Outpatient (CLI) | payer OTHER, MEDICARE ==
[2020-07-08 12:18] LABS: HEMATOCRIT 37.5 % (42.0-52.0); HEMOGLOBIN 12.5 gm/dL (14.0-18.0); MCH 29.2 pg (26.0-34.0); MCHC 33.2 g/dL (28.0-37.0); MCV 87.9 fL (80.0-100.0); RBC 4.27 mil/uL (4.50-6.00); RDW 14.6 % (10.5-14.5); WBC 7.8 thou/uL (4.0-11.0)
[2020-07-08 12:41] LABS: ALBUMIN 3.8 g/dL (3.4-5.0); ANION GAP 10 mmol/L (7-16); BUN 15 mg/dL (7-18); CALCIUM 8.9 mg/dL (8.5-10.1); CHLORIDE 100 mmol/L (98-107); CO2 27 mmol/L (21-32); CREATININE 1.2 mg/dL (0.7-1.3); GLUCOSE 177 mg/dL (74-106); SGOT 24 U/L (15-37); SGPT 43 U/L (30-65); SODIUM 137 mmol/L (136-145); TOTAL BILIRUBIN 0.4 mg/dL (0.2-1.0); TOTAL PROTEIN 7.1 g/dL (6.4-8.2)
[2020-07-08 13:24] VITALS: BP 148/49
--- NOTE | 2020-07-08 13:26 | NUR ---
IN FOR WEEKLY SYNTHROID IV PUSH FOR HYPOTHYROIDISM. STATED FEELING WELL. SUJEY LAB FROM PICC LINE WITH SOME DIFFICULTY. TOLERATED INFUSION WITHOUT INCIDENT. APPLIED NEW DRESSING TO PICC LINE. SITE WNL. TO RETURN TOMORROW FOR HIS NEXT INFUSION. DISMISSED IN STABLE CONDITION.
== END ==
LOC: OPONC 08:35
PROVIDERS: ATTEND Specialist
DX: L03.115 Cellulitis of right lower limb (principal); E11.621 Type 2 diabetes mellitus with foot ulcer; L97.519 Non-pressure chronic ulcer of other part of right foot with unspecified severity
CPT/HCPCS: 95000

== ENCOUNTER → 2020-07-09 | Outpatient (CLI) | payer OTHER, MEDICARE ==
[2020-07-09 11:20] VITALS: BP 155/52
--- NOTE | 2020-07-09 12:00 | NUR ---
HERE FOR DAILY IV DAPTOMYCIN INFUSION. REPORTS DOING WELL, FEELING WELL. NO CONCERNS NOTED. DENIES N/V/DIARRHEA, FEVER/CHILLS. TOLERATED INFUSION WITHOUT INCIDENT. DISMISSED IN STABLE CONDITION.
== END ==
LOC: OPONC 08:38
PROVIDERS: ATTEND Specialist
DX: L03.115 Cellulitis of right lower limb (principal); E11.621 Type 2 diabetes mellitus with foot ulcer; L97.519 Non-pressure chronic ulcer of other part of right foot with unspecified severity
CPT/HCPCS: 95000

== ENCOUNTER → 2020-07-10 | Outpatient (CLI) | payer OTHER, MEDICARE ==
[~2020-07-10] MED LIST changes: +DORYX MPC120 MG PO
== END ==
LOC: SJCVC 12:08
PROVIDERS: ATTEND Internal Medicine
DX: Z51.81 Encounter for therapeutic drug level monitoring (principal); Z79.01 Long term (current) use of anticoagulants; Z79.82 Long term (current) use of aspirin; Z79.899 Other long term (current) drug therapy; Z90.89 Acquired absence of other organs; Z95.2 Presence of prosthetic heart valve; Z72.89 Other problems related to lifestyle

== ENCOUNTER → 2020-07-10 | Outpatient (CLI) | payer OTHER, MEDICARE ==
[2020-07-10 11:09] VITALS: BP 148/65
--- NOTE | 2020-07-10 11:57 | NUR ---
IN FOR DAILY DAPTOMYCIN INFUSION FOR RT FOOT DIABETIC WOUND INFECTION. PATIENT STATED FEELING WELL. DENIED NAUSEA, DIARRHEA, FEVER, CHILLS AND PAIN. TOLERATED INFUSION WITHOUT INCIDENT. TO RETURN TOMORROW FOR HOPEFULLY LAST INFUSION. ANTICIPATING TO STOP INFUSIONS TOMORROW AND DISMISS ON ORAL ANTIBIOTICS. DISMISSED IN GOOD CONDITION.
== END ==
LOC: OPONC 11:18
PROVIDERS: ATTEND Specialist
DX: L03.115 Cellulitis of right lower limb (principal); E11.621 Type 2 diabetes mellitus with foot ulcer; L97.519 Non-pressure chronic ulcer of other part of right foot with unspecified severity
CPT/HCPCS: 95000

== ENCOUNTER → 2020-07-11 | Outpatient (CLI) | payer OTHER, MEDICARE ==
[2020-07-11 15:25] VITALS: BP 148/44
--- NOTE | 2020-07-11 15:31 | NUR ---
IN FOR DAILY DAPTOMYCIN INFUSION FOR RT FOOT DIABETIC WOUND INFECTION AND TO SEE DR. GUERRA. STATED FEELING WELL. DENIED NAUSEA, DIARRHEA, FEVER, CHILLS AND PAIN. TOLERATED INFUSION WITHOUT INCIDENT. DR. GUERRA VISITED. NEW ORDERS WRITTEN. PICC LINE REMOVED WITH TIP INTACT. APPLIED COBAN PRESSURE DRESSING. PLAN IS TO START PO ANTIBIOTIC AND RETURN FOR F/U VISIT WITH LABS IN 2 WEEKS. DISMISSED IN GOOD CONDITION.
== END ==
LOC: OPONC 12:56
PROVIDERS: ATTEND Specialist
DX: L03.115 Cellulitis of right lower limb (principal); E11.621 Type 2 diabetes mellitus with foot ulcer; L97.519 Non-pressure chronic ulcer of other part of right foot with unspecified severity
CPT/HCPCS: 95000

== ENCOUNTER → 2020-07-22 | Outpatient (CLI) | payer OTHER, MEDICARE | LOC: SJCVC 10:54 | PROVIDERS: ATTEND Internal Medicine | DX: Z51.81 Encounter for therapeutic drug level monitoring (principal); Z79.01 Long term (current) use of anticoagulants; Z95.2 Presence of prosthetic heart valve ==

== ENCOUNTER → 2020-07-25 | Outpatient (CLI) | payer OTHER, MEDICARE ==
[2020-07-25 14:00] VITALS: BP 133/54
--- NOTE | 2020-07-25 14:45 | NUR ---
HERE FOR F/U VISIT WITH DR. GUERRA. REPORTS DOING WELL, FEELING WELL. FOOT LOOKING CLEAN, GOOD BUT WOUND IS STILL OPEN. FOLLOWING WOUND CARE ORDERS AND DOES HOME WOUND CARE. LABS DRAWN, PT DISMISSED. WILL F/U EITHER IN THE OFFICE OR HERE TO SEE DR. GUERRA AND HAVE REPEAT LABS DRAWN.
[2020-07-25 14:46] LABS: HEMATOCRIT 41.5 % (42.0-52.0); HEMOGLOBIN 14.3 gm/dL (14.0-18.0); MCH 29.8 pg (26.0-34.0); MCHC 34.3 g/dL (28.0-37.0); MCV 86.9 fL (80.0-100.0); RBC 4.78 mil/uL (4.50-6.00); RDW 14.4 % (10.5-14.5); WBC 10.6 thou/uL (4.0-11.0)
[2020-07-25 15:01] LABS: ALBUMIN 4.4 g/dL (3.4-5.0); CALCIUM 9.3 mg/dL (8.5-10.1); CREATININE 1.1 mg/dL (0.7-1.3); POTASSIUM 3.9 mmol/L (3.5-5.1); TOTAL BILIRUBIN 0.5 mg/dL (0.2-1.0); TOTAL PROTEIN 8.4 g/dL (6.4-8.2)
== END ==
LOC: OPONC 12:04
PROVIDERS: ATTEND Specialist
DX: L03.115 Cellulitis of right lower limb (principal); E11.621 Type 2 diabetes mellitus with foot ulcer; L97.519 Non-pressure chronic ulcer of other part of right foot with unspecified severity
CPT/HCPCS: 91016

== ENCOUNTER → 2020-08-01 | Outpatient (CLI) | payer OTHER, MEDICARE | LOC: HYPER 09:00 | PROVIDERS: ATTEND Emergency Medicine Emergency Medical Services | DX: T81.89XD Other complications of procedures, not elsewhere classified, subsequent encounter (principal); E11.621 Type 2 diabetes mellitus with foot ulcer; L97.512 Non-pressure chronic ulcer of other part of right foot with fat layer exposed; E11.610 Type 2 diabetes mellitus with diabetic neuropathic arthropathy; E11.40 Type 2 diabetes mellitus with diabetic neuropathy, unspecified; L84 Corns and callosities; I11.0 Hypertensive heart disease with heart failure; I50.32 Chronic diastolic (congestive) heart failure; G47.30 Sleep apnea, unspecified; E78.5 Hyperlipidemia, unspecified; E78.00 Pure hypercholesterolemia, unspecified; I25.10 Atherosclerotic heart disease of native coronary artery without angina pectoris; Z79.01 Long term (current) use of anticoagulants; Z79.82 Long term (current) use of aspirin; Z79.84 Long term (current) use of oral hypoglycemic drugs; Y83.8 Other surgical procedures as the cause of abnormal reaction of the patient, or of later complication, without mention of misadventure at the time of the procedure ==

== ENCOUNTER 2020-08-06 13:52 | Emergency (ER) | payer OTHER, MEDICARE ==
[~2020-08-06] VITALS: Ht 182.9 cm; Wt 113.4 kg
[2020-08-06 14:51] LABS: ABSOLUTE NEUTROPHILS 9.9 thou/uL (1.4-8.2); BASOPHILS 0.7 % (0.0-2.0); EOSINOPHILS 0.9 % (0.0-3.0); HEMATOCRIT 40.7 % (42.0-52.0); HEMOGLOBIN 13.6 gm/dL (14.0-18.0); LYMPHOCYTES 16.7 % (24.0-44.0); MCH 28.7 pg (26.0-34.0); MCHC 33.4 g/dL (28.0-37.0); MCV 86.1 fL (80.0-100.0); MONOCYTES 6.6 % (1.0-8.0); PLATELET COUNT 324 thou/uL (150-400); POLYS 75.1 % (36.0-66.0); RBC 4.73 mil/uL (4.50-6.00); RDW 14.3 % (10.5-14.5); WBC 13.1 thou/uL (4.0-11.0)
[2020-08-06 15:03] LABS: APTT 33.7 Seconds (24.5-32.8); D-DIMER 3.18 ug/mLFEU (0.19-0.50); INR 2.1; PROTIME 22.9 Seconds (9.3-11.4)
[2020-08-06 15:06] LABS: ANION GAP 8 mmol/L (7-16); BUN 20 mg/dL (7-18); CALCIUM 9.6 mg/dL (8.5-10.1); CHLORIDE 102 mmol/L (98-107); CO2 28 mmol/L (21-32); CREATININE 1.3 mg/dL (0.7-1.3); GLUCOSE 125 mg/dL (74-106); POTASSIUM 4.2 mmol/L (3.5-5.1); SODIUM 138 mmol/L (136-145)
[2020-08-06 15:16] LABS: ALBUMIN 4.2 g/dL (3.4-5.0); SGOT 27 U/L (15-37); SGPT 47 U/L (16-63); TOTAL BILIRUBIN 0.6 mg/dL (0.2-1.0); TOTAL PROTEIN 7.8 g/dL (6.4-8.2); TROPONIN-I <0.06 ng/mL (<0.06)
--- NOTE | 2020-08-06 16:23 | EKG ---
[place] [address] [place] [address] ELECTROCARDIOGRAM REPORT Name: KASIELETITIA Jade Room #: [facility] Latosha#: [id number] Admission: 08/06/20 Attend Phys: Discharge: 08/06/20 Date of : 55 Report #: [id number] [facility] ED Test Date: 2020-08-06 Test Time: 14:01:37 Pat Name: LETITIA THRASHER Department: Room: Gender: Lead Trainer: DEE : 1955 Requested By: Graham Gomez Order Number: [id number] MD: Randolph Roy Measurements Intervals [place] Rate: 79 P: -19 [place]: 180 QRS: 74 QRSD: 118 T: 29 QT: 385 QTc: 442 Interpretive Statements Sinus rhythm Multiple premature complexes, vent & supraven Nonspecific intraventricular conduction delay Minimal ST depression, inferior leads No previous ECG available for comparison Electronically Signed On 08-06-2020 16:23:02 CLINICAL TRIAL DATA MANAGER by Randolph Roy [email or web address] <ELECTRONICALLY SIGNED> By: Randolph Roy MD, [facility] 08/06/20 1623 1401 1401 Randolph Roy MD, FACC /EPI
[2020-08-06 18:17] VITALS: BP 119/47
== END 2020-08-06 18:17 | disposition home or self-care (01) ==
LOC: ER 13:52
PROVIDERS: Emergency Medicine
DX: R07.89 Other chest pain (principal)

== ENCOUNTER → 2020-08-11 | Outpatient (CLI) | payer OTHER, MEDICARE | LOC: SJCVC 13:22 | PROVIDERS: ATTEND Internal Medicine | DX: I49.3 Ventricular premature depolarization (principal); R94.31 Abnormal electrocardiogram [ECG] [EKG]; I50.32 Chronic diastolic (congestive) heart failure; I11.0 Hypertensive heart disease with heart failure; E78.5 Hyperlipidemia, unspecified; Q23.1 Congenital insufficiency of aortic valve; G47.33 Obstructive sleep apnea (adult) (pediatric); R73.9 Hyperglycemia, unspecified; Z95.4 Presence of other heart-valve replacement; Z79.82 Long term (current) use of aspirin; Z79.01 Long term (current) use of anticoagulants; Z79.899 Other long term (current) drug therapy ==

== ENCOUNTER → 2020-08-15 | Outpatient (CLI) | payer OTHER, MEDICARE ==
[2020-08-15 12:15] VITALS: BP 141/48
[2020-08-15 12:40] LABS: HEMATOCRIT 37.4 % (42.0-52.0); HEMOGLOBIN 12.7 gm/dL (14.0-18.0); MCH 29.4 pg (26.0-34.0); MCHC 34.1 g/dL (28.0-37.0); MCV 86.4 fL (80.0-100.0); RBC 4.33 mil/uL (4.50-6.00); RDW 14.3 % (10.5-14.5); WBC 9.7 thou/uL (4.0-11.0)
[2020-08-15 12:57] LABS: ALBUMIN 3.8 g/dL (3.4-5.0); CALCIUM 8.9 mg/dL (8.5-10.1); CREATININE 1.2 mg/dL (0.7-1.3); POTASSIUM 4.1 mmol/L (3.5-5.1); TOTAL BILIRUBIN 0.5 mg/dL (0.2-1.0); TOTAL PROTEIN 7.6 g/dL (6.4-8.2)
--- NOTE | 2020-08-15 16:10 | NUR ---
IN FOR CLINIC VISIT WITH LABS FOR RIGHT FOOT DIABETIC WOUND INFECTION. PATIENT STATED DOING WELL. DENIED NAUSEA, DIARRHEA, FEVER/CHILLS, PAIN. LABS DRAWN AND FAXED RESULTS TO DR. GUERRA. DR. GUERRA VISITED. WOUND TO RT FOOT CLEAN, DRY WITH NO REDNESS OR DRAINAGE. DR. GUERRA CONCERNED SKIN IS NOT COVERING WOUND. PLAN IS TO CONTINUE DOXYCYCLINE ORALLY AND F/U IN 2 WEEKS WITH LABS. DISMISSED IN GOOD CONDITION.
--- NOTE | 2020-08-16 18:56 | HC ---
[facility] [place] [address] CONSULTATION Name: LETITIA FERRO Room #: [facility]#: [id number] Admission: 08/15/20 Attend Phys: Arya Bowie MD Discharge: Date of : 55 Report #: [id number] THIS REPORT FOR: cc: FAM - No family physician/PCP FAM - No family physician/PCP Arya Bowie MD ~ FOLLOWUP OUTPATIENT INFECTIOUS DISEASE NOTE HISTORY OF PRESENT ILLNESS: The patient returns in regard to his right midfoot Charcot wound infection due to methicillin-resistant Staphylococcus aureus and group B streptococcus. He is 10 weeks into his treatment course with daptomycin followed by now, doxycycline, which he is tolerating well. Wound continues to granulate, although it is not making much progress in size reduction. REVIEW OF SYSTEMS: Negative for cardiopulmonary, GI, or complaints. PHYSICAL EXAMINATION: VITAL SIGNS: He is afebrile and hemodynamically stable. EXTREMITIES: His right foot wound had a fairly abundant amount of granulation tissue present. Still fairly large in size with no surrounding erythema or fluctuance. LABORATORY DATA: Reviewed. IMPRESSION: Methicillin-resistant Staphylococcus aureus including group G Streptococcus infection involving the right midfoot Charcot associated with an abscess that has been drained. Still is slow in healing this wound. His inflammatory markers remain elevated today. We will plan on continuing his antibiotic course another 2 weeks and then reevaluate. He will follow up with wound care service next week. <ELECTRONICALLY SIGNED> By: Arya Bowie MD 08/16/20 1856 1347 2004 Arya Bowie MD /nt
== END ==
LOC: OPONC 09:43
PROVIDERS: ATTEND Specialist
DX: E11.621 Type 2 diabetes mellitus with foot ulcer (principal); L97.512 Non-pressure chronic ulcer of other part of right foot with fat layer exposed; L03.115 Cellulitis of right lower limb
CPT/HCPCS: 91018

== ENCOUNTER → 2020-08-18 | Outpatient (CLI) | payer OTHER, MEDICARE | LOC: HYPER 09:33 | PROVIDERS: ATTEND Emergency Medicine Emergency Medical Services | DX: T81.89XD Other complications of procedures, not elsewhere classified, subsequent encounter (principal); E11.621 Type 2 diabetes mellitus with foot ulcer; L97.512 Non-pressure chronic ulcer of other part of right foot with fat layer exposed; E11.610 Type 2 diabetes mellitus with diabetic neuropathic arthropathy; E11.40 Type 2 diabetes mellitus with diabetic neuropathy, unspecified; I25.10 Atherosclerotic heart disease of native coronary artery without angina pectoris; A39.8 Other meningococcal infections; L84 Corns and callosities; I11.0 Hypertensive heart disease with heart failure; I50.32 Chronic diastolic (congestive) heart failure; E78.5 Hyperlipidemia, unspecified; E78.00 Pure hypercholesterolemia, unspecified; G47.30 Sleep apnea, unspecified; Z79.84 Long term (current) use of oral hypoglycemic drugs; Z79.01 Long term (current) use of anticoagulants; Z79.82 Long term (current) use of aspirin; Z79.899 Other long term (current) drug therapy; Y83.8 Other surgical procedures as the cause of abnormal reaction of the patient, or of later complication, without mention of misadventure at the time of the procedure ==

== ENCOUNTER → 2020-08-29 | Outpatient (CLI) | payer OTHER, MEDICARE ==
[2020-08-29 12:28] LABS: HEMATOCRIT 39.5 % (42.0-52.0); HEMOGLOBIN 13.2 gm/dL (14.0-18.0); MCH 28.7 pg (26.0-34.0); MCHC 33.3 g/dL (28.0-37.0); MCV 86.4 fL (80.0-100.0); RBC 4.58 mil/uL (4.50-6.00); RDW 14.4 % (10.5-14.5); WBC 10.5 thou/uL (4.0-11.0)
[2020-08-29 12:50] VITALS: BP 139/59
[2020-08-29 13:02] LABS: ALBUMIN 4.1 g/dL (3.4-5.0); CREATININE 1.1 mg/dL (0.7-1.3); POTASSIUM 4.3 mmol/L (3.5-5.1); TOTAL BILIRUBIN 0.6 mg/dL (0.2-1.0); TOTAL PROTEIN 7.4 g/dL (6.4-8.2)
--- NOTE | 2020-08-29 13:55 | NUR ---
HERE FOR F/U CLINIC VISIT FOR RT FOOT DIABETIC FOOT WOUND. LABS DRAWN, SEEN BY DR. GUERRA WHO EVALUATED FOOT. PT ALSO KEEPS ONGOING APPTS WITH THE WOUND CLINIC AND DOES OWN DAILY DRESSING CHANGES PRESCRIBED BY THEM. WOUND IS STILL OPEN BUT LOOKS CLEAN. FOOT XRAY ORDERED BY DR. GUERRA. PT SENT TO RADIOLOGY PRIOR TO DISMISSAL AND IS SCHEDULED TO RETURN HERE AGAIN IN 2 WEEKS. DISMISSED IN STABLE CONDITION.
--- NOTE | 2020-08-30 15:12 | HC ---
[facility] [place] [address] CONSULTATION Name: LETITIA FERRO Jade Room #: REG [facility]#: [id number] Admission: 08/29/20 Attend Phys: Arya Bowie MD Discharge: Date of : 55 Report #: [id number] THIS REPORT FOR: cc: FAM - No family physician/PCP FAM - No family physician/PCP Arya Bowie MD ~ OUTPATIENT FOLLOWUP ID NOTE HISTORY OF PRESENT ILLNESS: The patient returns in followup of his right midfoot Charcot wound infection due to methicillin-resistant Staphylococcus aureus and group B streptococcus. He is 12 weeks into his treatment course having finished his course of daptomycin. He is now on doxycycline and tolerating this well. Drainage has been minimal from the foot wound. He still has not healed. There is a large wound has been granulating. He does follow up with Wound Care Service on a regular basis. Over the last 2 weeks, he has noticed increased swelling to the mid portion of his foot medially. Some increased pain as well. He remains nonweightbearing. No fever, chills or sweats. REVIEW OF SYSTEMS: Negative for cardiopulmonary, GI or complaints. PHYSICAL EXAMINATION: VITAL SIGNS: He is afebrile and hemodynamically stable. EXTREMITIES: Right foot wound had abundant granulation tissue and was a bit smaller than last visit, although the change has been increased swelling to the mid portion of his foot medially. Mild tenderness in this region as well. No areas of cellulitis or fluctuance noted. LABORATORY STUDIES: From 08/29/2020, CBC was unremarkable. CRP was 10, creatinine 1.1. Liver function test normal. IMPRESSION: Methicillin-resistant Staphylococcus aureus and group G Streptococcus infection of the right midfoot Charcot associated with abscess has been drained. This area is slow to heal. Change now as concerning for progressive Charcot change. We would like to plan on continuing his antibiotic therapy and x-ray of his right foot. If inconclusive with any changes, we will need to repeat an MRI scan. We will follow up in 2 weeks. He will see wound care next week. <ELECTRONICALLY SIGNED> By: Arya Bowie MD 08/30/20 1512 1338 16 Arya Bowie MD /nt
== END ==
LOC: OPONC 09:33
PROVIDERS: ATTEND Specialist
DX: L03.115 Cellulitis of right lower limb (principal); E11.621 Type 2 diabetes mellitus with foot ulcer; L97.519 Non-pressure chronic ulcer of other part of right foot with unspecified severity
CPT/HCPCS: 91018

== ENCOUNTER → 2020-09-01 | Outpatient (CLI) | payer OTHER, MEDICARE | LOC: HYPER 10:39 | PROVIDERS: ATTEND Emergency Medicine Emergency Medical Services | DX: T81.89XD Other complications of procedures, not elsewhere classified, subsequent encounter (principal); E11.621 Type 2 diabetes mellitus with foot ulcer; L97.512 Non-pressure chronic ulcer of other part of right foot with fat layer exposed; E11.610 Type 2 diabetes mellitus with diabetic neuropathic arthropathy; E11.40 Type 2 diabetes mellitus with diabetic neuropathy, unspecified; I25.10 Atherosclerotic heart disease of native coronary artery without angina pectoris; A39.8 Other meningococcal infections; L84 Corns and callosities; I11.0 Hypertensive heart disease with heart failure; I50.32 Chronic diastolic (congestive) heart failure; E78.5 Hyperlipidemia, unspecified; E78.00 Pure hypercholesterolemia, unspecified; G47.30 Sleep apnea, unspecified; Z79.84 Long term (current) use of oral hypoglycemic drugs; Z79.01 Long term (current) use of anticoagulants; Z79.82 Long term (current) use of aspirin; Z79.899 Other long term (current) drug therapy; Y83.8 Other surgical procedures as the cause of abnormal reaction of the patient, or of later complication, without mention of misadventure at the time of the procedure ==

== ENCOUNTER → 2020-09-12 | Outpatient (CLI) | payer OTHER, MEDICARE ==
[2020-09-12 12:34] LABS: HEMATOCRIT 37.7 % (42.0-52.0); HEMOGLOBIN 12.7 gm/dL (14.0-18.0); MCH 28.9 pg (26.0-34.0); MCHC 33.8 g/dL (28.0-37.0); MCV 85.5 fL (80.0-100.0); RBC 4.4 mil/uL (4.50-6.00); WBC 9.2 thou/uL (4.0-11.0)
[2020-09-12 12:45] LABS: CALCIUM 8.5 mg/dL (8.5-10.1); CREATININE 1.2 mg/dL (0.7-1.3); POTASSIUM 4.2 mmol/L (3.5-5.1)
[2020-09-12 12:51] LABS: ALBUMIN 3.8 g/dL (3.4-5.0); TOTAL BILIRUBIN 0.4 mg/dL (0.2-1.0); TOTAL PROTEIN 7.3 g/dL (6.4-8.2)
[2020-09-12 14:41] VITALS: BP 126/53
--- NOTE | 2020-09-12 14:42 | NUR ---
IN FOR CLINIC VISIT WITH DR. GUERRA FOR RT FOOT DIABETIC WOUND INFECTION. STATED TOLERATING THE ORAL DOXYCYCLINE WELL WITH NO C/O DIARRHEA, NAUSEA, FEVER OR CHILLS. DENIED PAIN. VITAL SIGNS GOOD. DR. GUERRA VISITED. LABS DONE AND FAXED OT DR. GUERRA'S OFFICE. PLAN IS TO CONTINUE DOXYCYCLINE AT HOME AND F/U IN 2 WEEKS WITH LABS. WOUND TO RT FOOT PINK, HEALING. SMALL AMOUNT OF SEROUS DRAINAGE NOTED. EDGES ARE SLOWLY MOVING IN. APPT SCHEDULED FOR SEPTEMBER 26. DISMISSED IN GOOD CONDITION.
== END ==
LOC: OPONC 10:00
PROVIDERS: ATTEND Specialist
DX: L03.115 Cellulitis of right lower limb (principal); E11.621 Type 2 diabetes mellitus with foot ulcer; L97.519 Non-pressure chronic ulcer of other part of right foot with unspecified severity
CPT/HCPCS: 91018

== ENCOUNTER → 2020-09-15 | Outpatient (CLI) | payer OTHER, MEDICARE | LOC: HYPER 09:56 | PROVIDERS: ATTEND Emergency Medicine Emergency Medical Services | DX: T81.89XD Other complications of procedures, not elsewhere classified, subsequent encounter (principal); E11.621 Type 2 diabetes mellitus with foot ulcer; L97.512 Non-pressure chronic ulcer of other part of right foot with fat layer exposed; E11.610 Type 2 diabetes mellitus with diabetic neuropathic arthropathy; E11.40 Type 2 diabetes mellitus with diabetic neuropathy, unspecified; I25.10 Atherosclerotic heart disease of native coronary artery without angina pectoris; A39.8 Other meningococcal infections; L84 Corns and callosities; I11.0 Hypertensive heart disease with heart failure; I50.32 Chronic diastolic (congestive) heart failure; E78.5 Hyperlipidemia, unspecified; E78.00 Pure hypercholesterolemia, unspecified; G47.30 Sleep apnea, unspecified; Z79.84 Long term (current) use of oral hypoglycemic drugs; Z79.01 Long term (current) use of anticoagulants; Z79.82 Long term (current) use of aspirin; Z79.899 Other long term (current) drug therapy; Y83.8 Other surgical procedures as the cause of abnormal reaction of the patient, or of later complication, without mention of misadventure at the time of the procedure ==

== ENCOUNTER → 2020-10-03 | Outpatient (CLI) | payer OTHER, MEDICARE ==
[2020-10-03 12:40] VITALS: BP 148/52
[2020-10-03 13:12] LABS: HEMATOCRIT 39.5 % (42.0-52.0); HEMOGLOBIN 13.6 gm/dL (14.0-18.0); MCHC 34.3 g/dL (28.0-37.0); MCV 84.4 fL (80.0-100.0); RBC 4.68 mil/uL (4.50-6.00); WBC 9.9 thou/uL (4.0-11.0)
[2020-10-03 13:29] LABS: CREATININE 1.1 mg/dL (0.7-1.3); POTASSIUM 4.2 mmol/L (3.5-5.1); TOTAL BILIRUBIN 0.6 mg/dL (0.2-1.0); TOTAL PROTEIN 7.7 g/dL (6.4-8.2)
--- NOTE | 2020-10-03 14:34 | NUR ---
HERE FOR ANTIBIOTIC THERAPY. TOLERATED INFUSION WITHOUT ADVERSE REACTION. DENIES PAIN NAUSEA DIARRHA OR CHILLS. DR. GUERRA HERE TO SEE PATIENT. PATIENT TO CONTINUE SAME TREATMENT FOR ANOTHER WEEK. DC AMBULATORY WITH . TO RETURN THIS WEEKEND TO THE ER FOR TREATMENT.
--- NOTE | 2020-10-03 15:07 | NUR ---
HERE FOR F/U VISIT WITH DR. GUERRA AND FOR LABS. REPORTS DOING WELL, FEELING WELL. NO CONCERNS NOTED. FOOT LOOKS TO BE HEALING NICELY BUT STILL OPEN WOUND. PT CONTINUES TO SEE WOUND CARE TEAM ON REGULAR BASIS. ORDERS RECEIVED TO STOP ORAL ANTIBX AND NO NEED TO RETURN AT THIS TIME TO SEE DR. ERIKA GUERRA. PT VERBALIZES UNDERSTANDING AND IS PLEASED WITH PLAN. PT PLANS TO SEE WOUND CARE TEAM NEXT WEEK. DISMISSED IN STABLE CONDITION.
== END ==
LOC: OPONC 09-26 11:24
PROVIDERS: ATTEND Specialist
DX: E11.628 Type 2 diabetes mellitus with other skin complications (principal); L03.115 Cellulitis of right lower limb; E11.621 Type 2 diabetes mellitus with foot ulcer; L97.519 Non-pressure chronic ulcer of other part of right foot with unspecified severity
CPT/HCPCS: 91018

== ENCOUNTER → 2020-10-06 | Outpatient (CLI) | payer OTHER, MEDICARE | LOC: HYPER 09:26 | PROVIDERS: ATTEND Emergency Medicine Emergency Medical Services | DX: T81.89XD Other complications of procedures, not elsewhere classified, subsequent encounter (principal); E11.621 Type 2 diabetes mellitus with foot ulcer; L97.512 Non-pressure chronic ulcer of other part of right foot with fat layer exposed; E11.610 Type 2 diabetes mellitus with diabetic neuropathic arthropathy; E11.40 Type 2 diabetes mellitus with diabetic neuropathy, unspecified; I25.10 Atherosclerotic heart disease of native coronary artery without angina pectoris; A39.8 Other meningococcal infections; L84 Corns and callosities; I11.0 Hypertensive heart disease with heart failure; I50.32 Chronic diastolic (congestive) heart failure; E78.5 Hyperlipidemia, unspecified; E78.00 Pure hypercholesterolemia, unspecified; G47.30 Sleep apnea, unspecified; Z79.84 Long term (current) use of oral hypoglycemic drugs; Z79.01 Long term (current) use of anticoagulants; Z79.82 Long term (current) use of aspirin; Y83.8 Other surgical procedures as the cause of abnormal reaction of the patient, or of later complication, without mention of misadventure at the time of the procedure ==

== ENCOUNTER → 2020-10-20 | Outpatient (CLI) | payer OTHER, MEDICARE | LOC: HYPER 07:48 | PROVIDERS: ATTEND Emergency Medicine Emergency Medical Services | DX: T81.89XD Other complications of procedures, not elsewhere classified, subsequent encounter (principal); E11.621 Type 2 diabetes mellitus with foot ulcer; L97.512 Non-pressure chronic ulcer of other part of right foot with fat layer exposed; L84 Corns and callosities; A39.8 Other meningococcal infections; E11.610 Type 2 diabetes mellitus with diabetic neuropathic arthropathy; E11.40 Type 2 diabetes mellitus with diabetic neuropathy, unspecified; E66.9 Obesity, unspecified; E78.5 Hyperlipidemia, unspecified; E78.00 Pure hypercholesterolemia, unspecified; G47.30 Sleep apnea, unspecified; I11.0 Hypertensive heart disease with heart failure; I50.32 Chronic diastolic (congestive) heart failure; I25.10 Atherosclerotic heart disease of native coronary artery without angina pectoris; Z68.32 Body mass index [BMI] 32.0-32.9, adult; Y83.8 Other surgical procedures as the cause of abnormal reaction of the patient, or of later complication, without mention of misadventure at the time of the procedure ==

== ENCOUNTER → 2020-10-20 | Outpatient (CLI) | payer OTHER, MEDICARE ==
[~2020-10-20] MED LIST changes: +MEROPENEM500 MG IV; +METHOCARBAMOL500 M2 PO; +PERCOCET 7.5-31 EACH PO; +VANCO 1.251.25 GM/25 IVPB
== END ==
LOC: SJCVC 10:50
PROVIDERS: ATTEND Internal Medicine
DX: Z51.81 Encounter for therapeutic drug level monitoring (principal); I25.10 Atherosclerotic heart disease of native coronary artery without angina pectoris; E78.00 Pure hypercholesterolemia, unspecified; I10 Essential (primary) hypertension; E74.39 Other disorders of intestinal carbohydrate absorption; G47.30 Sleep apnea, unspecified; Z79.01 Long term (current) use of anticoagulants; Z79.82 Long term (current) use of aspirin; Z79.899 Other long term (current) drug therapy; Z95.4 Presence of other heart-valve replacement

== ENCOUNTER 2020-10-26 18:35 | Emergency (ER) | payer OTHER, MEDICARE ==
[~2020-10-26] VITALS: Ht 182.9 cm; Wt 113.4 kg
[~2020-10-26 18:35] MED LIST changes: -MEROPENEM500 MG IV; -METHOCARBAMOL500 M2 PO; -PERCOCET 7.5-31 EACH PO; -VANCO 1.251.25 GM/25 IVPB
[2020-10-26] MEDS ORDERED: PERCOCET 7.5-31 EACH PO (19:00)
[2020-10-26] MEDS ORDERED: HYDROCODON-ACE1 EAC7 PO (19:01)
[2020-10-26 19:33] LABS: URINE BILIRUBIN NEGATIVE (Negative); URINE BLOOD TRACE (Negative); URINE CLARITY CLEAR; URINE COLOR YELLOW; URINE GLUCOSE-RANDOM* NEGATIVE (Negative); URINE KETONES NEGATIVE (Negative); URINE LEUKOCYTES-REFLEX NEGATIVE (Negative); URINE NITRITE-REFLEX NEGATIVE (Negative); URINE PROTEIN (DIPSTICK) 2+ (Negative); URINE SPECIFIC GRAVITY 1.025 (1.005-1.035); URINE UROBILINOGEN 0.2 E.U./dl (0.2-1.0)
[2020-10-26 19:36] LABS: HEMATOCRIT 36.9 % (42.0-52.0); HEMOGLOBIN 12.3 gm/dL (14.0-18.0); MCH 28.4 pg (26.0-34.0); MCHC 33.3 g/dL (28.0-37.0); MCV 85.3 fL (80.0-100.0); RBC 4.33 mil/uL (4.50-6.00); RDW 14.3 % (10.5-14.5); WBC 22.8 thou/uL (4.0-11.0)
[2020-10-26 19:45] LABS: CALCIUM 9.2 mg/dL (8.5-10.1); CREATININE 1.4 mg/dL (0.7-1.3); POTASSIUM 4.3 mmol/L (3.5-5.1)
[2020-10-26 19:49] LABS: MUCUS >6 Heavy strn/LPF (None Seen); SQUAMOUS 4-10 Moderate /LPF (0-3)
[2020-10-26 19:50] LABS: BACTERIA-REFLEX 1-9 Few /HPF (None Seen); FINE GRANULAR CASTS 0-3 Few /LPF (None Seen); URINE RBC 1-2 Rare /HPF (NONE SEEN); URINE WBC-REFLEX 0-5 Rare /HPF (0-5)
[2020-10-26 19:51] LABS: CRYSTALS None Seen /LPF (None Seen)
[2020-10-26] MEDS ORDERED: METHOCARBAMOL500 M2 PO (20:50)
[2020-10-26 20:55] VITALS: BP 149/67
== END 2020-10-26 21:01 | disposition home or self-care (01) ==
LOC: ER 18:35
PROVIDERS: Nurse Practitioner Family
DX: M14.671 Charcot's joint, right ankle and foot (principal); M54.5 Low back pain; R10.32 Left lower quadrant pain; Z79.82 Long term (current) use of aspirin; Z79.899 Other long term (current) drug therapy; Z79.01 Long term (current) use of anticoagulants

== ENCOUNTER 2020-11-01 06:41 | Inpatient (IN) | payer OTHER, MEDICARE ==
[2020-11-01] VITALS (14 sets, daily range): BP systolic 81–137; BP diastolic 20–49
[~2020-11-01] VITALS: Ht 182.9 cm; Wt 115.0 kg
[~2020-11-01 06:41] MED LIST changes: +METHOCARBAMOL500 M2 PO; +PERCOCET 7.5-31 EACH PO
--- NOTE | 2020-11-01 06:59 | NUR ---
PHYSICIANS DECLINE TRAUMA ALERT
[2020-11-01 07:25] LABS: HEMATOCRIT 34.6 % (42.0-52.0); HEMOGLOBIN 11.5 gm/dL (14.0-18.0); MCH 27.8 pg (26.0-34.0); MCHC 33.1 g/dL (28.0-37.0); PLATELET COUNT 191 thou/uL (150-400); RBC 4.12 mil/uL (4.50-6.00); RDW 14.6 % (10.5-14.5); WBC 22.1 thou/uL (4.0-11.0)
[2020-11-01 07:32] LABS: URINE BILIRUBIN NEGATIVE (Negative); URINE BLOOD 1+ (Negative); URINE COLOR YELLOW; URINE GLUCOSE-RANDOM* NEGATIVE (Negative); URINE KETONES NEGATIVE (Negative); URINE LEUKOCYTES-REFLEX NEGATIVE (Negative); URINE NITRITE-REFLEX NEGATIVE (Negative); URINE PROTEIN (DIPSTICK) NEGATIVE (Negative)
[2020-11-01 07:33] LABS: URINE CLARITY HAZY
[2020-11-01 07:34] LABS: CALCIUM 7.6 mg/dL (8.5-10.1); CREATININE 1.9 mg/dL (0.7-1.3); POTASSIUM 3.2 mmol/L (3.5-5.1)
[2020-11-01 07:40] LABS: ALBUMIN 2.1 g/dL (3.4-5.0); TOTAL BILIRUBIN 1.4 mg/dL (0.2-1.0); TOTAL PROTEIN 5.9 g/dL (6.4-8.2)
[2020-11-01 07:45] LABS: FINE GRANULAR CASTS 0-3 Few /LPF (None Seen); HYALINE CASTS 4-10 Moderate /LPF (None Seen)
[2020-11-01 07:47] LABS: SQUAMOUS 0-3 Few /LPF (0-3); URINE RBC 3-10 Few /HPF (NONE SEEN)
[2020-11-01 07:48] LABS: BACTERIA-REFLEX 1-9 Few /HPF (None Seen); CRYSTALS None Seen /LPF (None Seen); URINE WBC-REFLEX 0-5 Rare /HPF (0-5)
[2020-11-01 09:09] LABS: ABSOLUTE NEUTROPHILS 21.2 thou/uL (1.4-8.2); ANISOCYTOSIS SLIGHT
[2020-11-01 09:23] LABS: INR > 8.00
--- NOTE | 2020-11-01 12:46 | NUR ---
RECEIVED ORDERS FOR OT EVAL AND TREAT. PT. HAS CRITICALLY HIGH INR AND IS NOT APPROPRIATE FOR OT EVAL THIS DATE. WILL CHECK BACK TUESDAY.
[2020-11-01 23:41] LABS: CALCIUM 7.3 mg/dL (8.5-10.1); CREATININE 1.8 mg/dL (0.7-1.3); POTASSIUM 3.6 mmol/L (3.5-5.1)
[2020-11-02] VITALS (25 sets, daily range): BP systolic 95–150; BP diastolic 28–66
--- NOTE | 2020-11-02 02:56 | NUR ---
11/01/2020 1845 PT ADMIT TO ICU RM 246 FROM ED. PARTIAL SEPSIS PROTCOL DONE WITH FLUIDS GIVEN, ANTIBIOTIC STARTED, CULTURES DRAWN, ORDERS GIVEN AND ID DR Jason GUERRA CAME TO SEE PT AT BEDSIDE, STATED HIS FOOT WOUND LOOKS BETTER THAN IT HAS. ORDRER TO CHECK FOR C-DIFF WITH NEXT BM. PT WAS LETHARGIC UPON ARRIVAL. 2 PIV INTACT, FLUSHED W/ NS 10ML EACH.
[2020-11-02 03:24] LABS: HEMATOCRIT 36.6 % (42.0-52.0); HEMOGLOBIN 12.2 gm/dL (14.0-18.0); MCH 28.4 pg (26.0-34.0); MCHC 33.3 g/dL (28.0-37.0); MCV 85.2 fL (80.0-100.0); PLATELET COUNT 141 thou/uL (150-400); RBC 4.29 mil/uL (4.50-6.00); RDW 14.9 % (10.5-14.5); WBC 22.7 thou/uL (4.0-11.0)
[2020-11-02 03:37] LABS: ALBUMIN 2.1 g/dL (3.4-5.0); CALCIUM 7.9 mg/dL (8.5-10.1); CREATININE 1.6 mg/dL (0.7-1.3); MAGNESIUM 3.1 mg/dL (1.8-2.4); POTASSIUM 3.4 mmol/L (3.5-5.1); TOTAL BILIRUBIN 1.3 mg/dL (0.2-1.0); TOTAL PROTEIN 6.6 g/dL (6.4-8.2)
[2020-11-02 03:42] LABS: TROPONIN-I 1.07 ng/mL (<0.06)
--- NOTE | 2020-11-02 06:12 | NUR ---
PROGRESSION TOWARD GOALS, MORE ALERT, AFEBRIAL, VSS. PLAN FOR AM TO OBTAIN CHEST XRAY, ECHO, EKG, US OF ABD. NEX ASHLEY NEED TO OBTAIN SAMPLE FOR D-DIFF EVAL. BETTER STRENGTH IN UPPER EXTEMITIES, HOWEVER WAKER THAN BASELINE.
[2020-11-02 09:23] LABS: PROTIME > 90.0 Seconds (10.5-12.1)
[2020-11-02 09:25] LABS: INR > 8.00
--- NOTE | 2020-11-02 10:08 | NUR ---
ASSUMED CARE OF PATIENT AT 0700, PT IS SLEEPING PT'S SISTER AT THE BEDSIDE AT 0900
--- NOTE | 2020-11-02 15:09 | EKG ---
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: KF : 1955 Requested By: Jim Gaona Order Number: [id number] MD: Bucky Vazquez Measurements Intervals [place] Rate: 84 P: 0 [place]: 157 QRS: 71 QRSD: 112 T: 22 QT: 398 QTc: 471 Interpretive Statements Sinus rhythm Anteroseptal infarct, old Minimal ST depression, inferior leads Compared to ECG 08/06/2020 14:01:37 Septal Q waves are now present Premature ventricular and supraventricular complexes are no longer present Electronically Signed On 11-02-2020 15:09:26 CDT by Bucky Vazquez [email or web address] <ELECTRONICALLY SIGNED> By: Bucky Vazquez MD, [facility] 11/02/20 1509 0736 0736 Bucky Vazquez MD, [facility] /EPI
--- NOTE | 2020-11-02 15:15 | EKG ---
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: MAHESH : 1955 Requested By: Navneet Mascorro Order Number: [id number] MD: Bucky Vazquez Measurements Intervals [place] Rate: 73 P: 0 MI: 194 QRS: 66 QRSD: 122 T: 65 QT: 424 QTc: 468 Interpretive Statements Sinus rhythm Nonspecific intraventricular conduction delay Probable anteroseptal infarct, old Compared to ECG 11/01/2020 07:36:39 No significant change was found Electronically Signed On 11-02-2020 15:14:50 CDT by Bucky Vazquez [email or web address] <ELECTRONICALLY SIGNED> By: Bucky Vazquez MD, [facility] 11/02/20 1514 1215 14 Bucky Vazquez MD, FACC /EPI
--- NOTE | 2020-11-02 15:24 | EKG ---
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1955 Requested By: Jules Cheng Order Number: [id number] MD: Bucky Vazquez Measurements Intervals [place] Rate: 75 P: 0 MT: 220 QRS: 85 QRSD: 118 T: 12 QT: 435 QTc: 486 Interpretive Statements Sinus rhythm Nonspecific intraventricular conduction delay Borderline T abnormalities, inferior leads Compared to ECG 11/01/2020 12:15:00 First degree AV block now present T-wave abnormality now present Electronically Signed On 11-02-2020 15:24:16 CDT by Bucky Vazquez [email or web address] <ELECTRONICALLY SIGNED> By: Bucky Vazquez MD, [facility] 11/02/20 1524 7 7 Bucky Vazquez MD, [facility] /EPI
[2020-11-03] VITALS (23 sets, daily range): BP systolic 94–153; BP diastolic 36–80
[2020-11-03 04:42] LABS: PROTIME 19.5 Seconds (10.5-12.1)
[2020-11-03 04:47] LABS: INR 1.84
--- NOTE | 2020-11-03 05:44 | NUR ---
PROGRESS TOWARDS DC GOALS: ZANDRA REMAINS CONFUSED, SAID HE IS SEEING FACES AND STORIES. HE KNOWS WHO HE IS AND WHERE HE IS, BUT CAN'T RMEMEBER INSTRUCTIONS FOR CALL LIGHT. HE IS INCONTINENT OF URINE. HE HAS HAD MULTIPLE LARGE VOLUME, UNMEASURED VOIDS IN BED. HE IS WEAK, BUT IS GAING MORE ABILTY TO HELP WITH TUNRS AND BOOTING IN BED.
[2020-11-03 07:31] LABS: CALCIUM 7.9 mg/dL (8.5-10.1); CREATININE 1.4 mg/dL (0.7-1.3); POTASSIUM 3.7 mmol/L (3.5-5.1)
--- NOTE | 2020-11-03 07:44 | NUR ---
PT HEART RHYTHM CHANGED, OBTAINED EKD, AND SPOKE WITH DR HUGHES, ADDED A BMP TO LABS.
--- NOTE | 2020-11-03 08:01 | EKG ---
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1955 Requested By: Bucky Vazquez Order Number: [id number] MD: Bcuky Vazquez Measurements Intervals [place] Rate: 58 P: GA: QRS: -74 QRSD: 194 T: 77 QT: 538 QTc: 529 Interpretive Statements Atrial flutter RBBB and LAFB Compared to ECG 11/02/2020 07:38:16 Ventricular premature complex(es) now present Left anterior fascicular block now present Right bundle-branch block now present Sinus rhythm no longer present Electronically Signed On 11-03-2020 8:01:14 CDT by Bucky Vazquez [email or web address] <ELECTRONICALLY SIGNED> By: Bucky Vazquez MD, [facility] 11/03/20 0801 4 4 Bucky Vazquez MD, [facility] /EPI
--- NOTE | 2020-11-03 09:58 | NUR ---
at bedside helping pt eat breakfast. PT and OT here to work with pt and eval.
--- NOTE | 2020-11-03 10:03 | 2DMMODE ---
[facility] [place] [address] 2 D/M-MODE ECHOCARDIOGRAM Name: LETITIA FERRO Room #: 246-P ADM IN M.R.#: [id number] Admission: 11/01/20 Attend Phys: Navneet Mascorro MD Discharge: Date of : 55 Report #: [id number] THIS REPORT FOR: cc: FAM - No family physician/PCP FAM - No family physician/PCP Bucky Vazquez MD [facility] ~ APPROVED REPORT Study performed: 11/03/2020 09:05:41 EXAM: Comprehensive 2D, Doppler, and color-flow Echocardiogram Patient Location: ICU Room #: 246 Status: routine BSA: 2.35 HR: 65 bpm BP: 133/51 mmHg Rhythm: BBB, PVCs Other Information Study Quality: Adequate Indications AVR, hx: PAF. 2D Dimensions IVSd: 13.40 (7-11mm) LVDd: 61.33 mm PWd: 12.68 (7-11mm) Ascending Ao: 32.73 (22-36mm) LVDs: 37.24 (25-40mm) Left Atrium: 41.49 (27-40mm) Volumes Left Atrial Volume (Systole) Single Plane 4CH: 58.80 mL Single Plane 2CH: 84.82 mL LA ESV Index: 34.00 mL/m2 Aortic Valve AoV Peak Irineo.: 2.96 m/s AO Peak Gr.: 35.13 mmHg LVOT Max P.34 mmHg AO Mean Gr.: 18.69 mmHg AO V2 Mean: 2.03 m/s LVOT Max V: 1.26 m/s AO V2 VTI: 43.97 cm [facility] [address] [place] [address] 2 D/M-MODE ECHOCARDIOGRAM Name: LETITIA FERRO Room #: 246-P [facility] IN Dio.#: [id number] Admission: 11/01/20 Attend Phys: Navneet Mascorro MD Discharge: Date of : 55 Report #: [id number] Mitral Valve MV Decel. Time: 240.77 ms Pulmonary Valve PV Peak Irineo.: 1.58 m/s PV Peak Gr.: 9.93 mmHg Tricuspid Valve TR Peak Irineo.: 3.16 m/s RAP Estimate: 10.00 mmHg TR Peak Gr.: 40.00 mmHg PA Pressure: 50.00 mmHg Left Ventricle Left ventricle is mildly dilated. There is normal LV segmental wall motion. Mild concentric left ventricular hypertrophy. Left ventricular systolic function is normal. LVEF is 65%. This study is not technically sufficient to allow evaluation of the LV diastolic function. Right Ventricle The right ventricle is normal size. The right ventricular systolic function is normal. Atria The left atrium size is normal. The right atrium size is normal. Aortic Valve Mechanical aortic valve replacement (#27 ATS). (Peak pressure gradient valve is 35mmHg, mean of 19mmHg). No aortic regurgitation is present. Mitral Valve The mitral valve is normal in structure. Mild mitral regurgitation. No evidence of mitral valve stenosis. Tricuspid Valve The tricuspid valve is normal in structure. Mild tricuspid regurgitation. Estimated PAP is 45-50mmHg. Pulmonic Valve The pulmonary valve is normal in structure. Trace pulmonic regurgitation. Great Vessels The aortic root is normal in size. The ascending aorta is normal in size. IVC is dilated and collapses <50% with [facility] [address] [place] [address] 2 D/M-MODE ECHOCARDIOGRAM Name: LETITIA FERRO Jade Room #: 246-P ADM IN M.R.#: [id number] Admission: 11/01/20 Attend Phys: Navneet Mascorro MD Discharge: Date of : 55 Report #: [id number] inspiration. Pericardium There is no pericardial effusion. <Conclusion> Left ventricular systolic function is normal. There is normal LV segmental wall motion. LVEF is 65%. Mechanical aortic valve replacement (#27 ATS). (Peak pressure gradient valve is 35mmHg, mean of 19mmHg). No aortic regurgitation The mitral valve is normal in structure. Mild mitral regurgitation. Mild tricuspid regurgitation. Estimated pulmonary artery pressure 45-50mmHg. The ascending aorta is normal in size, replaced with Hemashield graft. There is no pericardial effusion. <ELECTRONICALLY SIGNED> By: Bucky Vazquez MD, [facility] 11/03/201002 02 02 Bucky Vazquez MD, [facility] /INF
--- NOTE | 2020-11-03 11:35 | NUR ---
chart review. BPCI. discussed during los and am round. cm visited with outside of room, viktor was resting with eyes closed. going for test(ct/mri/xray) already had echo. he lives home with shari in apartment above their [address]. have stair lift. he independent, manage own medication, cpap when he naps or at bedtime. drives. no hh or rehab in the past, so now " going to see dr roberto donato on 11/12/20 for new pcp"/. will cont following as needed for dc needs.
[2020-11-03 11:51] LABS: BE(vivo) -2.7 mmol/L (-2 to +3); HCO3 18.8 mmol/L (22.0-26.0); PO2 63.6 mmHg (80.0-100.0); pH 7.517 (7.360-7.450); sO2 94.7 % (92.0-98.0)
[2020-11-03 11:52] LABS: PCO2 23.7 mmHg (35.0-45.0)
--- NOTE | 2020-11-03 13:36 | NUR ---
Pt returned from MRI, CT and xray. Bladder scanned pt for 550, straight cath produced 900cc. Paged Dr. Mascorro, awaiting orders.
--- NOTE | 2020-11-03 13:46 | NUR ---
Pt sitting up in bed eating lunch with help from family.
--- NOTE | 2020-11-03 13:52 | NUR ---
Assess due to pt admit with sepsis, chronic foot infection/charcot foot wound. Eats well, wts stable, obese. BG controlled. Will add 1 ensure max per day, otherwise low nutrition risk.
[2020-11-03 15:41] LABS: URINE BILIRUBIN NEGATIVE (Negative); URINE BLOOD 3+ (Negative); URINE CLARITY CLEAR; URINE COLOR YELLOW; URINE GLUCOSE-RANDOM* NEGATIVE (Negative); URINE KETONES NEGATIVE (Negative); URINE LEUKOCYTES-REFLEX TRACE (Negative); URINE NITRITE-REFLEX NEGATIVE (Negative); URINE PROTEIN (DIPSTICK) NEGATIVE (Negative)
[2020-11-03 15:50] LABS: SQUAMOUS 0-3 Few /LPF (0-3)
[2020-11-03 15:51] LABS: AMORPHOUS URATES Few /LPF (None Seen); BACTERIA-REFLEX None Seen /HPF (None Seen); CRYSTALS None Seen /LPF (None Seen); HYALINE CASTS 0-3 Few /LPF (None Seen); URINE RBC 3-10 Few /HPF (NONE SEEN); URINE WBC-REFLEX None Seen /HPF (0-5)
--- NOTE | 2020-11-03 16:08 | EKG ---
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
[2020-11-04] VITALS (25 sets, daily range): BP systolic 100–161; BP diastolic 20–54
[2020-11-04 03:24] LABS: ABSOLUTE NEUTROPHILS 25.4 thou/uL (1.4-8.2); BASOPHILS 0.4 % (0.0-2.0); HEMATOCRIT 30.9 % (42.0-52.0); LYMPHOCYTES 3.1 % (24.0-44.0); MCH 28.2 pg (26.0-34.0); MCHC 33.1 g/dL (28.0-37.0); MONOCYTES 5.1 % (1.0-8.0); PLATELET COUNT 131 thou/uL (150-400); POLYS 91.4 % (36.0-66.0); RBC 3.64 mil/uL (4.50-6.00); RDW 15.3 % (10.5-14.5); WBC 27.7 thou/uL (4.0-11.0)
[2020-11-04 03:29] LABS: HEMOGLOBIN 10.2 gm/dL (14.0-18.0)
[2020-11-04 03:45] LABS: ALBUMIN 1.7 g/dL (3.4-5.0); CALCIUM 7.6 mg/dL (8.5-10.1); POTASSIUM 3.7 mmol/L (3.5-5.1); TOTAL BILIRUBIN 1.8 mg/dL (0.2-1.0); TOTAL PROTEIN 5.5 g/dL (6.4-8.2)
--- NOTE | 2020-11-04 08:12 | NUR ---
ASSUMED CARE OF PT AT 0700. PT CAN ANSWER ALL ORIENTATION QUESTIONS BUT IS STILL CONFUSED WHEN IT COMES TO TIME AND SITUATION. HE CONTINUES TO TAKE OFF HIS GOWN AND DISCONNECT LEADS.
--- NOTE | 2020-11-04 08:30 | HC ---
[facility] [place] [address] CONSULTATION Name: LETITIA FERRO Jade Room #: 246-P ADM IN M.R.#: [id number] Admission: 11/01/20 Attend Phys: Navneet Mascorro MD Discharge: Date of : 55 Report #: [id number] THIS REPORT FOR: cc: SHARRON - No family physician/PCP SHARRON - No family physician/PCP Manpreet Sims MD ~ DATE OF SERVICE: 11/02/2020 WOUND CARE CONSULTATION NOTE REASON FOR CONSULTATION: Diabetic wound of right foot, possibly contributing to sepsis and altered mental status. HISTORY OF PRESENT ILLNESS: The patient is a 65-year-old patient followed by Dr. Juliano Bowie for chronic wound of his Charcot right foot in the setting of diabetes. The patient states he may have had a lesion removed from the foot about 2 years ago and this never healed. He has had an open wound, treated by Dr. Bowie. The patient apparently has had antibiotics. Multiple tests done including MRI. X-ray of the foot done during this hospitalization shows no bony abnormalities. The patient had been doing worse at home. He has been treated with a course of IV daptomycin for MRSA and group B strep of the right foot wound, which had become abscessed. Wound had been a chronic healing problem and was recently infected. The patient was eating more and was more debilitated, weaker and falling, has now been admitted and is on IV vancomycin antibiotic therapy. His sister is attending him in the room. The patient is well known to Dr. Nj in the [facility]. PAST MEDICAL HISTORY: Diabetes mellitus type 2; Charcot right foot; chronic anticoagulation; history of non-ST elevated myocardial infarction, history of osteomyelitis of the fourth toe of the right foot; distal right toe amputation. ALLERGIES: No known drug allergies. MEDICATIONS: IV vancomycin and Coumadin. PAST SURGICAL HISTORY: Mechanical heart valve, amputation of distal right fourth toe. PHYSICAL EXAMINATION: GENERAL: Shows an elderly obese 65-year-old gentleman who is alert and conversant. HEENT: Mucous membranes are moist. He has some productive cough. LUNGS: Respirations are unlabored. ABDOMEN: Soft. EXTREMITIES: Shows some evidence of venous stasis with pigment deposition in [facility] [address] [place] [address] CONSULTATION Name: LETITIA FERRO Jade Room #: 246-P ADM IN M.R.#: [id number] Admission: 11/01/20 Attend Phys: Navneet Mascorro MD Discharge: Date of : 55 Report #: [id number] both legs. The patient has some Charcot deformity of the right foot. On the medial aspect of the right foot, there is a chronic open wound measuring 2.5 cm x 1 cm x 2 mm deep. This is surrounded by dense callus. Surface of the wound has chronic granulation tissue with some surface exudate. General area under the wound is slightly swollen, raised and mildly red. No clinical abscess. Appears mildly cellulitic. IMPRESSION: 1. Diabetes mellitus type 2 with Charcot right foot. 2. Chronic nonhealing wound of the right foot in the setting of diabetes. 3. History of cellulitis and abscess of the right foot wound with chronic nonhealing. 4. Recent altered mental status, hospital admission. X-ray of the foot shows no bony abnormalities. Clinical examination shows chronic wound of the right foot with some swelling and redness. This could possibly be a source of sepsis, but this is not obvious. He is benefiting from IV vancomycin. Superficial wound culture done. PLAN: The patient will be seen by the wound care team including Dr. Nj who knows him well. Plain x-ray was normal. Repeat MRI could be indicated. Leave the decision up to Dr. Nj who has been following him closely. Wound care team will follow. Order topical gentamicin 0.1%, Xeroform and a wound culture. <ELECTRONICALLY SIGNED> By: Manpreet Sims MD 11/04/20 0830 0918 1118 Manpreet Sims MD /nt
--- NOTE | 2020-11-04 12:27 | NUR ---
VAT CONSULTED FOR PICC PLACEMENT FOR THIS PT. RIGHT UPPER BASILIC DL PICC PLACED, DOCUMENTED, TRIMMED 42CM WITH 0CM EXTERNAL. PT TOLERATED WELL. BOTH LUMENS FLUSH BRISKLY AND RETURN BLOOD. UNABLE TO CONFIRM PICC TIP LOCATION WITH 3CG, DUE TO PT AFIB. CXR ORDERED.
--- NOTE | 2020-11-04 15:22 | NUR ---
RADIOLOGY REPORTS PICC TIP OVERLIES SVC. RELEASED PICC FOR USE, PER HOSPITAL POLICY, OF 1429.
[2020-11-05] VITALS (33 sets, daily range): BP systolic 114–158; BP diastolic 40–97
[2020-11-05 04:51] LABS: HEMATOCRIT 29.6 % (42.0-52.0); HEMOGLOBIN 9.8 gm/dL (14.0-18.0); MCHC 33.2 g/dL (28.0-37.0); MCV 84.3 fL (80.0-100.0); RBC 3.51 mil/uL (4.50-6.00); RDW 15.4 % (10.5-14.5); WBC 33.9 thou/uL (4.0-11.0)
[2020-11-05 04:59] LABS: INR 4.4; PROTIME 44.6 Seconds (9.3-11.4)
[2020-11-05 05:22] LABS: ALBUMIN 1.7 g/dL (3.4-5.0); CALCIUM 7.5 mg/dL (8.5-10.1); CREATININE 2.1 mg/dL (0.7-1.3); POTASSIUM 3.3 mmol/L (3.5-5.1); TOTAL BILIRUBIN 1.9 mg/dL (0.2-1.0); TOTAL PROTEIN 5.4 g/dL (6.4-8.2)
--- NOTE | 2020-11-05 10:03 | TEE ---
[facility] [place] [address] TRANSESOPHAGEAL ECHOCARDIOGRAM Name: LETITIA FERRO Room #: 246-P ADM IN M.R.#: [id number] Admission: 11/01/20 Attend Phys: Navneet Mascorro MD Discharge: Date of : 55 Report #: [id number] THIS REPORT FOR: cc: FAM - No family physician/PCP FAM - No family physician/PCP Bucky Vazquez MD [facility] ~ APPROVED REPORT Study performed: 11/05/2020 08:45:32 EXAM: Transesophageal Echocardiogram Patient Location: In-Patient Room #: [facility] Status: routine BSA: 2.34 HR: 53 bpm BP: 153/54 mmHg Rhythm: NSR Other Information Study Quality: Good Indications Bactermia Procedure After obtaining informed consent, patient underwent transesophageal echo in the Bedside. Type of Sedation : Conscious Sedation Sedation was administered by Nurse. Sedation start time: 844 Case end Time: 909 Sedation was achieved intravenously with: Versed () Fentanyl () Transesophageal probe was inserted and advanced into esophagus without difficulty by Bucky Vazquez MD. Echo enhancement indication: R/O Septal defect. Echo enhancement agent administered: Agitated Saline The TIARA was performed without complications. Throughout the procedure, the blood pressure, pulse oximetry, cardiac rhythm, and rate were monitored. The patient tolerated the procedure without adverse effects. Recovery from conscious sedation was uneventful and vital signs were stable. [facility] [address] [place] [address] TRANSESOPHAGEAL ECHOCARDIOGRAM Name: LETITIA FERRO Jade Room #: 246-P ADM IN M.R.#: [id number] Admission: 11/01/20 Attend Phys: Navneet Mascorro MD Discharge: Date of : 55 Report #: [id number] Left Ventricle The left ventricle is normal size. There is normal LV segmental wall motion. There is normal left ventricular wall thickness. The left ventricular systolic function is normal. The left ventricular ejection fraction is within the normal range. LVEF is 60%. Right Ventricle The right ventricle is normal size. The right ventricular systolic function is normal. Atria The left atrium size is normal. The right atrium size is normal. Aortic Valve Mechanical aortic prosthesis (#27 ATS) with annular abscess and extension to the anterior mitral annulus No aortic regurgitation Mitral Valve Large irregular bordered highly mobile mass adherent to the anterior mitral leaflet with extention to aortic annulus of the mitral valve consistent with vegetation and ring abscess. Severe, eccentric mitral regurgitation. Tricuspid Valve The tricuspid valve is normal in structure. There is no tricuspid valve regurgitation noted. Pulmonic Valve The pulmonary valve is normal in structure. There is no pulmonic valvular regurgitation. Great Vessels The aortic root is normal in size. Ascending aorta prosthetic Hemashield graft was difficult to image. No ascending aortic enlargement. IVC is normal in size and collapses >50% with inspiration. Pericardium There is no pericardial effusion. Critical Notification Critical Value: Yes Physician Notified Date: 11/05/2020 [facility] [place] [address] TRANSESOPHAGEAL ECHOCARDIOGRAM Name: LETITIA FERRO Room #: 246-P ADM IN M.R.#: [id number] Admission: 11/01/20 Attend Phys: Navneet Mascorro MD Discharge: Date of : 55 Report #: [id number] <Conclusion> The left ventricular systolic function is normal. There is normal LV segmental wall motion. LVEF is 60%. Mechanical aortic prosthesis (#27 ATS) with annular abscess and extension to the anterior mitral annulus and anterior mitral leaflet No aortic regurgitation Large irregular bordered highly mobile left atrial mass adherent to the anterior mitral leaflet with extention to aortic annulus/mechanical aortic prosthesis consistent with vegetation and aotic ring abscess. Severe, eccentric mitral regurgitation. Ascending aorta prosthetic Hemashield graft was difficult to image. No ascending aortic enlargement. There is no pericardial effusion. <ELECTRONICALLY SIGNED> By: Bucky Vazquez MD, [facility] 11/05/20 1002 1002 1002 Bucky Vazquez MD, [facility] /INF
--- NOTE | 2020-11-05 11:55 | NUR ---
Case discussed with the care team. Request rec'd to assist with transfer to [facility] per cardiology. Dr. Vazquez has initiated the request with [facility] Transfer RN. They have a copy of his face sheet and imaging has been uploaded to the cloud. Pt, his and sister updated at bedside per the attending. Awaiting acceptance and bed at [facility]. Chart copy requested and kcfd form and transfer form being completed for possible transfer today.
--- NOTE | 2020-11-05 18:17 | NUR ---
TIARA TODAY REVEALING VEGITATION, FAMILY NOTIFIED. CTS CONSULTED, TRANSFERRING TO [facility] PER ELLEN IN AM. FOLLOWING ALL COMMANDS ORIENTED X4. INSULIN GTT OFF, NOW SSI AND LANTUS. HR PERSISTANT IN 40'S ELLEN NOTIFIED. OK IF ASYMPTOMATIC PER ELLEN. BM STILL DARK IN NATURE. AFEBRILE.
[2020-11-06] VITALS (33 sets, daily range): BP systolic 87–161; BP diastolic 23–104
[2020-11-06 00:06] LABS: GLYCOHEMOGLOBIN (HGB A1C) 6.5 % (4.8-5.6)
--- NOTE | 2020-11-06 03:48 | NUR ---
ASSESSMENT: PT REMAIN ALERT AND ORIENT TIMES 1-2. NOT SURE OF HOSPITAL, DATE AND TIME. ABLE TO MOVE ALL EXTREMITIES. PT IS TO TRANSFER TO [facility] SOMETIME TODAY. CHART COPIED. CHRISTIE PICC PATENT. ANA LILIA PATENT. ADEQUATE UO. CRITICAL LAB RESULTS CALLED TO [facility]VIN ZALDIVAR. GRAM + COCCI. RIGHT FOOT WITH DRESSING LOOSE, REINFORCED. AFIB PER MONITOR. CPAP AT NOC. NO PROGRESS TOWARDS DC GOALS, WILL CONTINUE TO MONITOR.
[2020-11-06 04:53] LABS: MCV 84.8 fL (80.0-100.0)
[2020-11-06 05:04] LABS: HEMATOCRIT 29.7 % (42.0-52.0); HEMOGLOBIN 9.8 gm/dL (14.0-18.0); RBC 3.51 mil/uL (4.50-6.00); RDW 15.6 % (10.5-14.5)
[2020-11-06 05:08] LABS: CALCIUM 7.6 mg/dL (8.5-10.1); CREATININE 2.2 mg/dL (0.7-1.3); POTASSIUM 3.9 mmol/L (3.5-5.1)
[2020-11-06 05:16] LABS: WBC 41.9 thou/uL (4.0-11.0)
[2020-11-06 05:20] LABS: INR 2.63; PROTIME 27.4 Seconds (10.5-12.1)
--- NOTE | 2020-11-06 06:42 | NUR ---
[facility] CALLED AT APPROXIMATELY 0400 STATING THAT THERE IS NOT A BED AVAILABLE AT THIS TIME TO ACCEPT THIS PT. THEY STATED THAT THERE WILL POSSIBLY BE A BED AVAILABLE LATER TODAY AFTER DISCHARGING.
--- NOTE | 2020-11-06 08:53 | EKG ---
[address] [place] [address] ELECTROCARDIOGRAM REPORT Name: LETITIA FERRO Jade Room #: 214-P ADM IN M.R.#: [id number] Admission: 11/01/20 Attend Phys: Navneet Mascorro MD Discharge: Date of : 55 Report #: [id number] [facility] Test Date: 2020-11-06 Test Time: 07:10:53 Pat Name: LETITIA FERRO Department: Room: 214 P Gender: M Nutritionist: PHIL : 1955 Requested By: Bucky Vazquez Order Number: [id number] MD: Bucky Vazquez Measurements Intervals [place] Rate: 35 P: 258 OK: 295 QRS: -57 QRSD: 179 T: 62 QT: 640 QTc: 489 Interpretive Statements Atrial fibrillation with a slow ventricular response Ventricular premature complex Nonspecific IVCD with LAD Baseline wander in lead(s) I,II,aVR,V3 Compared to ECG 11/03/2020 15:58:24 Heart rate has slowed Electronically Signed On 11-06-2020 8:52:46 CDT by Bucky Vazquez [email or web address] <ELECTRONICALLY SIGNED> By: Bucky Vazquez MD, [facility] 11/06/20 0852 0710 0710 Bucky Vazquez MD, [facility] /EPI
[2020-11-06 12:29] LABS: BE(vivo) -7.9 mmol/L (-2 to +3); HCO3 14.5 mmol/L (22.0-26.0); PO2 69.5 mmHg (80.0-100.0); pH 7.436 (7.360-7.450); sO2 94.9 % (92.0-98.0)
[2020-11-06 12:30] LABS: PCO2 22.1 mmHg (35.0-45.0)
--- NOTE | 2020-11-06 12:43 | NUR ---
Pt with decline in respiratory and mental status. ABG's pending, now on o2. Transfering back to ICU. at bedside. [facility] Transfer RN updated with request for ICU bed [phone]. They are full but will call back this afternoon if anything opens up.
--- NOTE | 2020-11-06 13:19 | NUR ---
1410-to ccu to assist w moving pt over to icu. pt montoya,cold,profusely diaphretic. legs mottled.c/o i can't breathe.very lethargic but answers approp to orientaTION ?'S. to icu fully monitored.to icu bed. aware that pt needs to be intubated. at bedside. stat labs,t&c,bc x1 (stick) done.rr 42,sats ~94 on 5l/nc, s b w sa hihg 30's to low 40's. 118/53 (99) lt arm.--vw
[2020-11-06 13:39] LABS: HEMATOCRIT 31.4 % (42.0-52.0); MCH 27.4 pg (26.0-34.0); MCHC 31.9 g/dL (28.0-37.0); MCV 85.8 fL (80.0-100.0); RBC 3.66 mil/uL (4.50-6.00)
[2020-11-06 13:46] LABS: WBC 56.6 thou/uL (4.0-11.0)
[2020-11-06 13:50] LABS: CALCIUM 7.6 mg/dL (8.5-10.1); CREATININE 2.6 mg/dL (0.7-1.3); POTASSIUM 4.4 mmol/L (3.5-5.1)
[2020-11-06 14:00] LABS: ALBUMIN 1.9 g/dL (3.4-5.0); MAGNESIUM 3.9 mg/dL (1.8-2.4); TOTAL BILIRUBIN 2.3 mg/dL (0.2-1.0); TOTAL PROTEIN 5.7 g/dL (6.4-8.2); TROPONIN-I 0.26 ng/mL (<0.06)
--- NOTE | 2020-11-06 14:11 | NUR ---
1307 PATIENT RECEIVED INTO ICU ROOM 242 FROM ROOM 214 WITH C/O SOB AND SEPSIS. SKIN IS COOL AND CLAMMY, RESP ARE TACHYPNIC AND LABORED. PATIENT IS ASKING WHEN ARE THEY GOING TO PUT THE BREATHING TUBE IN.
[2020-11-06 14:19] LABS: APTT 35.6 Seconds (24.5-32.8)
--- NOTE | 2020-11-06 15:00 | NUR ---
ASSESSMENT CHARTED - PT MENTATION CHANGING THIS AM WAS DIFFICCULT TO AROUSE AT TIME - STERNAL RUB - OTHER TIMES ANSWERED TO NAME - AT TIMES PT A&O X 3-4 AT OTHER TIMES NOT ORIENTED AT ALL. PT STARTED SHIFT WITH O2 @ 2 L NC SAT 96% DAY PROGRESSED NEED FOR O2 UP TO 3 L SAT 93-94% RESP RATE INCREASED AND BECOME LABOURED RATE UP TO 42. PT WITH CO'S OF BACK PAIN GIVEN TYLENOL WITH LITTLE RELIEF. ATE ONLY SMALL AMOUNT OF BREAKFAST - ACCUCHECKS CHARTED - PT PALE AND SWEATY AT TIMES. - DR HAYES UP TO CHECK ON PATIENT - SPOKE WITH NURSE - INFORMED OF MENTATION - THAT PATIENT DID NOT HAVE GOOD COLOUR AND INCREASED NEED FOR O2. ROUNDED ON PATIENT AND MADE DECISION TO TRANSFER BACK TO THE ICU. STAT ABG'S AND CHEST XRAY COMPLETED ORDERED. PT HEART RATE 30'S TO MID 40'S. PRESENT AT TIME OF DR VISIT AND KNEW OF PATIENT TRANSFER BACK TO THE ICU. PT TRANSFERED VIA BED WITH TRANSPORT MONITOR AND O2 TO THE ICU BED 242. REPORT GIVETO RECEIVING NURSE. PT THROUGHOUT THE MORNING WOULD WANT CPAP ON AND THEN REQUEST IF OFF A FEW MINUTES LATER. ALTERNATED THIS REQUEST ON DEVERAL OCCASIONS. PT TO ICU AND SETTLED INTO ROOM. AND
--- NOTE | 2020-11-06 15:04 | NUR ---
call from transfer center, dr cesar called to see if they can take him for transfer. cm faxed referral to [facility] fax # [phone], . images clouded over.
--- NOTE | 2020-11-06 16:20 | NUR ---
1543 LEVOPHED STARTED FOR HYPOTENSION. 1615 DR HAYES UPDATED ON VS AND LOW URINE OUTPUT ORDERS RECEIVED. WILL CONTINUE TO MONITOR. FAMILY AT BEDSIDE AND UPDATED ON PATIENT STATUS. PATIENT CONFUSED AND REMAINS COOL AND DIAPHORETIC. RESP LESS LABORED. REPOSITONED FOR COMFORT.
--- NOTE | 2020-11-06 16:28 | NUR ---
PT PLACED ON HOLD FROM P.T. SERVICES DUE TO A DECLINE IN MEDICAL STATUS W/ SUBSEQUENT TRANSFER TO ICU. PHYSICIANS ATTEMPTING TO TRANSFER PT TO [facility] OR FOR NEEDED CARDIAC SURGERY INTERVENTION.
--- NOTE | 2020-11-06 17:00 | NUR ---
DR HUGHES IN AND SPOKE WITH THE FAMILY CONCERING TRANSFER TO [facility]' OR IV FLUIDS DC'D PER ORDER. WILL CONTINUE TO MONITOR
[2020-11-06] MEDS ORDERED: VANCO 1.251.25 GM/25 IVPB (17:50)
[2020-11-06] MEDS ORDERED: MEROPENEM500 MG IV (17:51)
--- NOTE | 2020-11-06 19:00 | NUR ---
NOTIFIED THAT BED WAS AVAILABLE AT . REPORT CALLED TO THE NURSE AND TRANSPORTATION SET UP, DR HAYES INFORMED. PATIENT NOW ON BIPAP WITH O2 SAT'S IN THE MID TO UPPER 90'S. PATIENT CONTINUALLY PULLING OFF BIPAP AND REQUESTING HIS APPLE IPAD. FAMILY MEMBERS AT BEDSIDE THROUGH OUT VISITING HOURS AND WAS GIVEN ROOM NUMBER FOR . UPDATED ON PATIENT STATUS AND APPROXIMATE TIME OF TRANSFER. VSS ON LEVOPHED DRIP.
--- NOTE | 2020-11-06 22:39 | NUR ---
REPORT RECEIVED FROM CHELA BHATTI. UPON INITIAL ASSESSMENT PT IS A&OX2, CONFUSED, ABLE TO FOLLOW SIMPLE COMMANDS, BUT RESTLESS IN BED AND HAVING TO FREQUENTLY REMIND HIS TO KEEP HIS OXYGEN ON. PT TEMP WAS ALSO 90.4. THIS RN PLACED A ANTHONY HUGGER ON PT AND SEVERAL WARM BLANKET. THIS RN HAD TO KEEP REMINDING PT TO KEEP BLANKETS ON. 2099 EMS WAS SUPPOSED TO TAKE PT TO [facility]. AT THAT TIME ([facility]) WAS CALLED AND UPDATED. 2208 EMS ARRIVED. REPORT WAS GIVEN. AN ACLS EMS CREW HAD TO BE CALLED IN DUE TO THE FACT THAT PT WAS NOW REQUIRING 15 L VIA HFNC, WAS STILL ON 2MCG OF LEVOPHED, AND HR AFIB IN THE 30'S. 2217 - EMS LEFT WITH PT. 2219 - TRANSFER CENTER CALLED TO LET THEM KNOW PT WAS EN ROUTE. 2220 - CALLED AND UPDATED. ALL QUESTIONS ANSWERED.
--- NOTE | 2020-11-07 06:52 | EKG ---
[address] [address] ELECTROCARDIOGRAM REPORT Name: LETITIA FERRO Room #: 242-P [facility] IN M.R.#: [id number] Admission: 11/01/20 Attend Phys: Navneet Mascorro MD Discharge: 11/06/20 Date of : 55 Report #: [id number] [facility] Test Date: 2020-11-06 Test Time: 15:19:50 Pat Name: LETITIA FERRO Department: Room: 242 Gender: M Lay Out Carpenter: FSCHWALBE : 1955 Requested By: Arya Bowie Order Number: [id number] MD: Randolph Roy Measurements Intervals Cades Rate: 40 P: PA: QRS: -88 QRSD: 202 T: 111 QT: 670 QTc: 547 Interpretive Statements Atrial fibrillation Ventricular premature complex RBBB and LAFB Abnormal T, probable ischemia, lateral leads Compared to ECG 11/06/2020 07:10:53 Left anterior fascicular block now present Right bundle-branch block now present T-wave abnormality now present Possible ischemia now present Intraventricular conduction delay no longer present Electronically Signed On 11-07-2020 6:51:57 CDT by Randolph Roy [email or web address] <ELECTRONICALLY SIGNED> By: Randolph Roy MD, FAC 11/07/20 0651 1519 1519 Randolph Roy MD, FAC /EPI
--- NOTE | 2020-11-09 07:44 | HC ---
[facility] [place] [address] CONSULTATION Name: KASIELETITIA Jade Room #: 242-P [facility] IN M.R.#: [id number] Admission: 11/01/20 Attend Phys: Navneet Mascorro MD Discharge: 11/06/20 Date of : 55 Report #: [id number] THIS REPORT FOR: cc: FAM - No family physician/PCP FAM - No family physician/PCP Gale Hammer MD ~ DOC #: [id number] Gael Hammer MD DATE OF SERVICE: 11/05/2020 HISTORY OF PRESENT ILLNESS: We were asked to see the patient by Dr. Vazquez. The patient is a 65-year-old with suspicion of endocarditis. The patient presents with generalized weakness. The patient has a history of falling out of bed and being unable to get up. The patient was admitted on 11/01/2020. The patient is known to have a poorly healing wound on the plantar surface of the right foot, which he has been dressing at home daily. The patient has a history of mechanical valve and aortic root replacement done in [address] Nicole. The patient had an ascending aortic aneurysm with bicuspid aortic valve, treated with Bentyl and mechanical valve placement. PAST MEDICAL HISTORY: Also significant for Charcot joint of right foot, cellulitis of right foot, need for chronic anticoagulation because of the mechanical valve, diabetic right foot ulcer with osteomyelitis. ALLERGIES: None known. HOME MEDICATIONS: Includes methocarbamol, aspirin, oxycodone, hydrocodone, warfarin, amlodipine, irbesartan, vitamins. REVIEW OF SYSTEMS: GENERAL: The patient denies fever or chills. EYES: Denies eye pain or visual change. HENT: Denies headache, hearing changes, sinus problems. RESPIRATORY: Denies cough, shortness of breath. CARDIOVASCULAR: Denies chest pain, angina, palpitations. GASTROINTESTINAL: Denies nausea, vomiting, blood. GENITOURINARY: Denies urgency, frequency, blood. MUSCULOSKELETAL: Admits to chronic back pain. SKIN: Admits to chronic wound on right foot. NEUROLOGIC: Neuropathy. Denies focal weakness. ENDOCRINE: Denies goiter or tremor. PHYSICAL EXAMINATION: GENERAL: The patient is lying in bed after his transesophageal echo this [facility] [address] [address] CONSULTATION Name: KASIELETITIA Jade Room #: 242-P [facility] IN [facility].#: [id number] Admission: 11/01/20 Attend Phys: Navneet Mascorro MD Discharge: 11/06/20 Date of : 55 Report #: [id number] morning. VITAL SIGNS: Temperature 36.4, heart rate 60, respiratory rate 28, blood pressure 150/62, O2 sat 93 on 2 liters. DIAGNOSTIC DATA: We note, the transesophageal echo today shows vegetation on the anterior mitral leaflet with an extension to the aortic annulus of the mitral valve consistent with vegetation and ring abscess. The patient has had positive blood cultures for Staph this admission. Last positive blood culture was 11/02/2020, with new cultures from today pending. The clinical picture with positive blood cultures and vegetation is suspicious for endocarditis. This could be [place] valve and/or prosthetic valve endocarditis. If the hinge point is involved, this could require by aortic and mitral replacement along with placement of intervening pericardium. 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 I have discussed this with Dr. Vazquez. In my opinion, this is beyond the scope of the surgery we should perform in this institution and I will look with him to find a different surgical option for the patient. It is a privilege to participate in this challenging patient's care. Thank you for the consult. Gael Hammer MD JF/EKT <ELECTRONICALLY SIGNED> By: Gael Hammer MD 11/09/20 0744 1142 2128 Gael Hammer MD /nt
== END 2020-11-06 22:18 | disposition short-term general hospital (02) | DRG 871 ==
LOC: ER 06:41 → ICU 11:30 → EROBS 11:30 → ICU 19:07 → 2N 11-05 19:40 → ICU 11-06 11:53
PROVIDERS: Emergency Medicine; Internal Medicine; Internal Medicine Cardiovascular Disease; Internal Medicine Pulmonary Disease; Nurse Practitioner; Nurse Practitioner Family; ADMIT Internal Medicine; ATTEND Internal Medicine
PROC: 5A09457 Assistance with Respiratory Ventilation, 24-96 Consecutive Hours, Continuous Positive Airway Pressure (ICD-10-PCS; 2020-11-02)
PROC: 02HV33Z Insertion of Infusion Device into Superior Vena Cava, Percutaneous Approach (ICD-10-PCS; 2020-11-04)
PROC: 5A09357 Assistance with Respiratory Ventilation, Less than 24 Consecutive Hours, Continuous Positive Airway Pressure (ICD-10-PCS; principal; 2020-11-05)
PROC: B24BZZ4 Ultrasonography of Heart with Aorta, Transesophageal (ICD-10-PCS; principal; 2020-11-05)
PROC: 5A0935A Assistance with Respiratory Ventilation, Less than 24 Consecutive Hours, High Flow/Velocity Cannula (ICD-10-PCS; 2020-11-06)
PROC: 5A09357 Assistance with Respiratory Ventilation, Less than 24 Consecutive Hours, Continuous Positive Airway Pressure (ICD-10-PCS; 2020-11-06)
DX: A41.02 Sepsis due to Methicillin resistant Staphylococcus aureus (principal); I21.4 Non-ST elevation (NSTEMI) myocardial infarction; J96.01 Acute respiratory failure with hypoxia; G92 Toxic encephalopathy; K72.00 Acute and subacute hepatic failure without coma; R65.21 Severe sepsis with septic shock; I33.0 Acute and subacute infective endocarditis; E43 Unspecified severe protein-calorie malnutrition; I50.32 Chronic diastolic (congestive) heart failure; E87.1 Hypo-osmolality and hyponatremia; D68.9 Coagulation defect, unspecified; N17.9 Acute kidney failure, unspecified; I48.92 Unspecified atrial flutter; E87.3 Alkalosis; I48.20 Chronic atrial fibrillation, unspecified; L97.319 Non-pressure chronic ulcer of right ankle with unspecified severity; R77.8 Other specified abnormalities of plasma proteins; S91.309A Unspecified open wound, unspecified foot, initial encounter; E66.01 Morbid (severe) obesity due to excess calories; D63.8 Anemia in other chronic diseases classified elsewhere; R53.81 Other malaise; E11.42 Type 2 diabetes mellitus with diabetic polyneuropathy; E11.610 Type 2 diabetes mellitus with diabetic neuropathic arthropathy; E78.5 Hyperlipidemia, unspecified; I35.0 Nonrheumatic aortic (valve) stenosis; B95.61 Methicillin susceptible Staphylococcus aureus infection as the cause of diseases classified elsewhere; G47.33 Obstructive sleep apnea (adult) (pediatric); R74.01 Elevation of levels of liver transaminase levels; K82.4 Cholesterolosis of gallbladder; I35.8 Other nonrheumatic aortic valve disorders; D72.823 Leukemoid reaction; M48.061 Spinal stenosis, lumbar region without neurogenic claudication; Z20.822 Contact with and (suspected) exposure to COVID-19; B95.8 Unspecified staphylococcus as the cause of diseases classified elsewhere; I11.0 Hypertensive heart disease with heart failure; Z95.2 Presence of prosthetic heart valve; Z68.34 Body mass index [BMI] 34.0-34.9, adult; I25.2 Old myocardial infarction; Z89.421 Acquired absence of other right toe(s); Z79.01 Long term (current) use of anticoagulants
CPT/HCPCS: 10078; 10081; 27000; 65040